=== PATIENT | male | born 1940 | race Caucasian/White ===

== ENCOUNTER → 2016-05-02 | Outpatient (CLI) | payer OTHER ==
[~2016-05-02] MED LIST: ASPI325T45 PO; CLR10 PO; DIPH-437 PO; FOLI1TAB7 PO; LEVO100T7 PO; OXYC-643 PO; POTA-74 PO; SIMV20TA2 PO
--- NOTE | 2016-05-02 11:28 | DIAGNOSTIC IMAGING REPORT ---
CHEST 2 VIEWS ROUTINE HISTORY: Follow-up PLEURAL EFFUSION COMPARISON: Chest 12/07/2015. FINDINGS: No pneumothorax. The heart is stable in size. Moderate left pleural effusion is slightly increased in size. Small right pleural fusion remains unchanged. Interstitial thickening has improved. No new focal lung consolidations. Bibasilar densities favor compressive atelectasis from the pleural fluid. IMPRESSION: 1. Slight increase in size in the moderate left pleural effusion. 2. No change in the small right pleural effusion. Electronically signed by: Michele Collazo M.D. 05/02/2016 11:26 AM Dictated Date/Time: 05/02/2016 11:25 AM
== END | disposition home or self-care (01) ==
LOC: C.RADBBURG 11:14
PROVIDERS: ATTEND Internal Medicine Critical Care Medicine
DX: J90 Pleural effusion, not elsewhere classified (principal)

== ENCOUNTER → 2016-07-03 | Outpatient (CLI) | payer OTHER ==
[~2016-07-03] MED LIST changes: +ATV/1 PO; +CHOL2000 PO; +CYAN500T13 PO; +LSX20 PO; +THM100 PO
--- NOTE | 2016-07-03 11:15 | DIAGNOSTIC IMAGING REPORT ---
CHEST 2 VIEWS ROUTINE HISTORY: PLEURAL EFFUSION COMPARISON: Chest 05/02/2016. FINDINGS: Moderate left and small right pleural effusions remain unchanged. No pneumothorax. The heart is normal in size. No evidence for pulmonary edema. Left basilar densities favor atelectasis from the pleural effusion. The right lung remains clear. IMPRESSION: No change in the moderate left and small right pleural effusions. Electronically signed by: Michele Collazo M.D. 07/03/2016 11:13 AM Dictated Date/Time: 07/03/2016 11:11 AM
== END | disposition home or self-care (01) ==
LOC: C.RADBBURG 11:00
PROVIDERS: ATTEND Physician Assistant
DX: J90 Pleural effusion, not elsewhere classified (principal)

== ENCOUNTER → 2016-09-23 | Outpatient (CLI) | payer OTHER ==
[~2016-09-23] MED LIST changes: -ATV/1 PO; -THM100 PO
--- NOTE | 2016-09-23 11:42 | DIAGNOSTIC IMAGING REPORT ---
CHEST 2 VIEWS ROUTINE HISTORY: 76 years Male PLEURAL EFFUSION COMPARISON: Chest radiograph 07/03/2016 TECHNIQUE: Frontal and lateral views of the chest FINDINGS: Cardiac silhouette is within normal limits. There is atherosclerosis of the aorta. No pneumothorax. There is persistent blunting of the right costophrenic angle suggesting trace pleural effusion. Moderate left pleural effusion with adjacent mild compressive atelectasis is redemonstrated. Degenerative changes involve the shoulders and spine. IMPRESSION: Stable appearance of the trace right and moderate left pleural effusions. The above report was generated using voice recognition software. It may contain grammatical, syntax or spelling errors. Electronically signed by: Karlo Plunkett M.D. 09/23/2016 11:41 AM Dictated Date/Time: 09/23/2016 11:39 AM
== END | disposition home or self-care (01) ==
LOC: C.RADBBURG 11:24
PROVIDERS: ATTEND Physician Assistant
DX: J90 Pleural effusion, not elsewhere classified (principal)

== ENCOUNTER → 2016-12-11 | Outpatient (CLI) | payer OTHER ==
[~2016-12-11] MED LIST changes: -CHOL2000 PO; -CYAN500T13 PO; -LSX20 PO
[2016-12-11 11:10] LABS: PATIENT HEIGHT 180.3 cm
[2016-12-11 12:27] LABS: URINE APPEARANCE CLEAR (CLEAR); URINE BILIRUBIN NEG (NEG); URINE COLOR YELLOW; URINE NITRITE NEG (NEG); URINE SPECIFIC GRAVITY 1.019 (1.000-1.030); UROBILINOGEN NEG (NEG)
[2016-12-11 12:28] LABS: MANUAL MICROSCOPIC REQUIRED? NO; REVIEW REQ? NO
[2016-12-11 12:34] LABS: HEMATOCRIT 35.6 % (42-52); MEAN CELL VOLUME 99.7 fL (80-100); MEAN CORPUSCULAR HEMOGLOBIN 33.3 pg (25-34); MEAN CORPUSCULAR HGB CONC 33.4 g/dl (32-36); MEAN PLATELET VOLUME 10.9 fL (7.4-10.4); PLATELET COUNT 278 K/uL (130-400); RED BLOOD COUNT 3.57 M/uL (4.7-6.1); WHITE BLOOD COUNT 6.35 K/uL (4.8-10.8)
[2016-12-11 12:41] LABS: BUN/CREATININE RATIO 6.6 (10-20); CALCIUM 8.2 mg/dl (8.5-10.1); CREATININE 2.3 mg/dl (0.60-1.40); PHOSPHORUS 3.2 mg/dl (2.5-4.9); POTASSIUM 3.6 mmol/L (3.5-5.1)
[2016-12-11 12:44] LABS: URINE PROTIEN/CREAT RATIO 3.8 (0-0.2)
[2016-12-11 12:53] LABS: C-REACTIVE PROTEIN 1.41 mg/dl (0-0.29); MAGNESIUM 2.3 mg/dl (1.8-2.4); PROSTATE SPECIFIC ANTIGEN 0.278 ng/ml (0.000-4.000); THYROID STIMULATING HORMONE 8.09 uIu/ml (0.300-4.500)
[2016-12-11 13:16] LABS: URINE TOTAL PROTEIN 186.6 mg/dl (0-11.9)
[2016-12-11 14:09] LABS: CREATININE 2.3 mg/dl (0.6-1.4)
[2016-12-11 16:20] LABS: HEPATITIS B AB NEG
[2016-12-12 16:50] LABS: ALBUMIN 2.3 G/DL (3.8-4.8); GAMMA GLOBULIN 0.8 G/DL (0.8-1.7); MONOCLONAL PROTEIN BAND 1 0.2 G/DL (NOT DETECTED); MONOCLONAL PROTEIN BAND 2 0.2 G/DL (NOT DETECTED); TOTAL PROTEIN 4.8 G/DL (6.2-8.3)
[2016-12-15 12:13] LABS: ALBUMIN % 66.32 %; ALPHA-2-GLOBULIN % 7.35 %; BETA GLOBULIN % 8.25 %; CREATININE UR 89 MG/DL (20-370); GAMMA GLOBULIN % 12.47 %
[2016-12-16 00:44] LABS: FREE KAPPA 56.1 MG/L (3.3-19.4); FREE KAPPA/LAMBDA RATIO 0.15 (0.26-1.65); FREE LAMBDA 364.1 MG/L (5.7-26.3)
== END | disposition home or self-care (01) ==
LOC: C.LABPBG 10:36
PROVIDERS: ATTEND Internal Medicine Nephrology
DX: M19.90 Unspecified osteoarthritis, unspecified site (principal); N17.9 Acute kidney failure, unspecified

== ENCOUNTER 2016-12-18 17:26 | Inpatient (IN) | payer OTHER ==
[~2016-12-18] VITALS: Ht 180.3 cm; Wt 77.4 kg
[2016-12-18 17:45] LABS: BASO % 0.5 %; BASO ABS # 0.03 K/uL (0-0.2); COMPLETE YES; EOS % 1.8 %; HEMATOCRIT 33.4 % (42-52); IG% 0.4 %; LYMPH % 14.6 %; MEAN CELL VOLUME 100.6 fL (80-100); MEAN CORPUSCULAR HEMOGLOBIN 32.5 pg (25-34); MEAN CORPUSCULAR HGB CONC 32.3 g/dl (32-36); MEAN PLATELET VOLUME 10.7 fL (7.4-10.4); NEUT % 72.7 %; PLATELET COUNT 240 K/uL (130-400); RED BLOOD COUNT 3.32 M/uL (4.7-6.1); WHITE BLOOD COUNT 5.49 K/uL (4.8-10.8)
[2016-12-18] MEDS ORDERED: MULTI-VITAMIN INFUSION INJ 10 ML, THIAMINE HCL INJ 100 MG, FoLIC ACID INJ 1 MG in SODIU... IV ONE ×3 (17:45→19:45)
[2016-12-18 17:54] LABS: INR 0.9 (0.9-1.1); PARTIAL THROMBOPLASTIN RATIO 1.1; PROTHROMBIN TIME (PATIENT) 9.5 SECONDS (9.0-12.0)
[2016-12-18 18:32] LABS: ALT/SGPT 18 U/L (12-78); AST/SGOT 38 U/L (15-37); BLOOD UREA NITROGEN 18 mg/dl (7-18); BUN/CREATININE RATIO 8.7 (10-20); CALCIUM 7.6 mg/dl (8.5-10.1); CARBON DIOXIDE 18 mmol/L (21-32); CHLORIDE 110 mmol/L (98-107); GLUCOSE 72 mg/dl (70-99); MAGNESIUM 2.7 mg/dl (1.8-2.4); POTASSIUM 3.6 mmol/L (3.5-5.1); SODIUM 138 mmol/L (136-145)
[2016-12-18 18:37] LABS: ALKALINE PHOSPHATASE 68 U/L (45-117)
[2016-12-18] MEDS ORDERED: CYAN500T13 PO (18:45)
[2016-12-18] MEDS ORDERED: CHOL2000 PO (18:45)
[2016-12-18] MEDS ORDERED: LSX20 PO (18:45)
--- NOTE | 2016-12-18 18:45 | DIAGNOSTIC IMAGING REPORT ---
HEAD WITHOUT CONTRAST (CT) CLINICAL HISTORY: 76 years-old Male presenting with Syncope, etoh. Awake now. TECHNIQUE: Multidetector CT imaging of the head was performed without the use of intravenous contrast. IV contrast: None. A dose lowering technique was used consistent with the principles of ALARA (as low as reasonably achievable). COMPARISON: 11/24/2015. CT DOSE (mGy.cm): The estimated cumulative dose is 948.[address] cervical spine. 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 Proportional ventricular and sulcal prominence, likely age-related parenchymal volume loss. Brain parenchyma normal in appearance with preserved akers-white differentiation. No mass effect or midline shift. No hemorrhage or acute territorial infarct. No extra-axial fluid collection. Paranasal sinuses and mastoid air cells clear. Calvarium intact. IMPRESSION: 1. No acute intracranial pathology. Electronically signed by: Sanju Hernandez M.D. 12/18/2016 6:44 PM Dictated Date/Time: 12/18/2016 6:41 PM
--- NOTE | 2016-12-18 18:50 | DIAGNOSTIC IMAGING REPORT ---
CERVICAL SPINE W/O CLINICAL HISTORY: 76 years-old Male presenting with fall, head injury, intoxicated. TECHNIQUE: Multidetector CT of the cervical spine was performed without the use of intravenous contrast. IV contrast: None. A dose lowering technique was used consistent with the principles of ALARA (as low as reasonably achievable). COMPARISON: 11/24/2015. CT DOSE (mGy.cm): The estimated cumulative dose is 948.78 mGy.cm. 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 Screening of normal cervical lordosis likely positional. No acute fracture or subluxation. Redemonstration of multilevel degenerative changes with large anterior osteophytes at C4-5 through C6-7. Disc osteophyte complex in combination with uncovertebral hypertrophy and facet arthropathy results in neural foraminal narrowing on the left at C3-4 and on the right at C6-7. Mild posterior bony spurring at the disc osteophyte complex at C3-4 more eccentrically affecting the right lateral recess. Otherwise no evidence of spinal canal stenosis. Paraspinal soft tissues within normal limits. Atherosclerosis noted. Large bilateral pleural effusions, increased in size bilaterally. IMPRESSION: 1. No acute osseous injury of the cervical spine. 2. Multilevel degenerative changes similar to prior exam. 3. Increased size of bilateral pleural effusions. Electronically signed by: Sanju Hernandez M.D. 12/18/2016 6:48 PM Dictated Date/Time: 12/18/2016 6:44 PM
--- NOTE | 2016-12-18 19:28 | DIAGNOSTIC IMAGING REPORT ---
CHEST ONE VIEW PORTABLE CLINICAL HISTORY: 76 years-old Male presenting with AMS. TECHNIQUE: Portable upright AP view of the chest was obtained. COMPARISON: 09/23/2016. FINDINGS: Atherosclerosis of aortic arch. Cardiac silhouette obscured by bibasilar opacities and chronic effusions. Stable moderate left pleural effusion and left basilar opacity. Increased small right pleural effusion and right basilar opacity. No pneumothorax. Osseous structures normal. Upper abdomen normal. IMPRESSION: 1. Increased bibasilar opacities with stable to increased pleural effusions. This could represent mild pulmonary edema and/or layering effusions. Electronically signed by: Sanju Hernandez M.D. 12/18/2016 7:26 PM Dictated Date/Time: 12/18/2016 7:25 PM
[2016-12-18 19:41] LABS: MANUAL MICROSCOPIC REQUIRED? NO; REVIEW REQ? NO; URINE APPEARANCE CLEAR (CLEAR); URINE BILIRUBIN NEG (NEG); URINE COLOR YELLOW; URINE NITRITE NEG (NEG); URINE SPECIFIC GRAVITY 1.014 (1.000-1.030); UROBILINOGEN NEG (NEG); ZZUR CULT IF INDIC CLEAN CATCH NO
[2016-12-18] MEDS ORDERED: LORAZEPAM 2 MG/ML 1 ML VIAL IV PRN ×2 (19:45)
[2016-12-18] MEDS ORDERED: ONDANSETRON INJ 2 MG/ML 2 ML VIAL IV PRN (20:00)
[2016-12-18] MEDS ORDERED: MoRPHine SULFATE 2 MG/ML CARP IV PRN (20:00)
[2016-12-18] MEDS ORDERED: ALUMINUM/MAGNESIUM/SIMETH (MAALOX MAX) 30 ML UDC PO PRN (20:00)
[2016-12-18] MEDS ORDERED: MAGNESIUM HYDROXIDE SUSP 30 ML UDC PO PRN (20:00)
[2016-12-18] MEDS ORDERED: POLYETHYLENE (MIRALAX) 17 GM PACK PO PRN (20:00)
[2016-12-18 20:05] LABS: BENZODIAZEPINE, URINE NEG (NEG); COCAINE,URINE NEG (NEG); PHENCYCLIDINE, URINE NEG (NEG)
--- NOTE | 2016-12-18 20:08 | History and Physical ---
History & Physical Date & Time of Service: Dec 18, 2016 at 19:54 Chief Complaint: Syncope/Dizzy Primary Care Physician: Steven Parry PA-C History of Present Illness Source: patient 76 y/o M Hx ETOH abuse, chronic hypoalbuminemia, anasarca, pleural effusions, hypothyroidism. Pt was having a few at a local bar when he became very dizzy and suddenly lost consciousness. He fell on to the floor and did not come around for approximately 5 minutes. There was no reported seizure activity or post ictal state. He does not recall any additional preceding symptoms such as CP, or palpitations. Initial labs reveal renal failure which was present on labs 6 days prior but not one year ago, hypoalbuminemia and an elevated troponin. Imaging confirms pleural effusions. Past Medical/Surgical History Medical Problems: (1) Rib fracture Status: Resolved Family History No pertinent family history Social History Chronic ETOH abuse Smoking Status: Former Smoker Drug Use: none Marital Status: Occupational Status: retired Multi-Drug Resistant Organisms History of MDRO: No Allergies Coded Allergies: No Known Allergies (Unverified , 12/18/16) Home Medications Scheduled Cholecalciferol (Vitamin D3), 2,000 INTER.UNIT PO DAILY Cyanocobalamin (Vitamin B12 500MCG), 1,000 MCG PO DAILY Folic Acid (Folvite), 1 MG PO DAILY Furosemide (Furosemide), 40 MG PO DAILY Levothyroxine Sodium (Levothyroxine Sodium), 100 MCG PO QAM Loratadine (Claritin), 10 MG PO QAM Potassium Chloride (Potassium Chloride Er), 10 MEQ PO QAM Simvastatin (Zocor), 20 MG PO QAM Review of Systems Constitutional: No fever, No chills, No sweats Eyes: No worsening of vision ENT: No hearing loss, No unusual epistaxis, No nasal symptoms Respiratory: No cough, No sputum, No wheezing Cardiovascular: No chest pain, No orthopnea, No PND Abdomen: No pain, No nausea, No vomiting Musculoskeletal: No joint pain Genitourinary - Male: No hematuria, No dysuria Neurologic: No memory loss, No paralysis, No weakness Psychiatric: No depression symptoms Endocrine: No fatigue Hematologic / Lymphatic: No abnormal bleeding/bruising Integumentary: No rash Allergic / Immunologic: No environmental allergies Physical Exam Vital Signs Date Time Temp Pulse Resp B/P (MAP) Pulse Ox O2 Delivery O2 Flow Rate FiO2 12/18/16 18:15 71 12/18/16 18:12 127/82 12/18/16 17:56 68 20 12/18/16 17:37 36.6 72 125/80 96 Room Air General Appearance: WD/WN, no apparent distress Head: normocephalic Eyes: normal inspection, PERRL, EOMI ENT: normal ENT inspection, pharynx normal Neck: supple, no JVD Respiratory/Chest: chest non-tender, lungs clear, no accessory muscle use, + decreased breath sounds Cardiovascular: regular rate, rhythm, no edema Abdomen/GI: normal bowel sounds, non tender, soft Back: normal inspection, no CVA tenderness, no muscle spasm, normal range of motion Extremities/Musculoskelatal: normal inspection, no calf tenderness, + pedal edema Neurologic/Psych: 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 nml as tested, no motor/sensory deficits, alert, oriented x 3 Skin: normal color, warm/dry, no rash Diagnostics Laboratory Results Results Past 24 Hours Test 12/18/16 17:30 12/18/16 17:47 12/18/16 18:00 12/18/16 19:47 Range/Units White Blood Count 5.49 4.8-10.8 K/uL Red Blood Count 3.32 4.7-6.1 M/uL Hemoglobin 10.8 14.0-18.0 g/dL Hematocrit 33.4 42-52 % Mean Corpuscular Volume 100.6 80-100 fL Mean Corpuscular Hemoglobin 32.5 25-34 pg Mean Corpuscular Hemoglobin Concent 32.3 32-36 g/dl Platelet Count 240 130-400 K/uL Mean Platelet Volume 10.7 7.4-10.4 fL Neutrophils (%) (Auto) 72.7 % Lymphocytes (%) (Auto) 14.6 % Monocytes (%) (Auto) 10.0 % Eosinophils (%) (Auto) 1.8 % Basophils (%) (Auto) 0.5 % Neutrophils # (Auto) 3.99 1.4-6.5 K/uL Lymphocytes # (Auto) 0.80 1.2-3.4 K/uL Monocytes # (Auto) 0.55 0.11-0.59 K/uL Eosinophils # (Auto) 0.10 0-0.5 K/uL Basophils # (Auto) 0.03 0-0.2 K/uL RDW Standard Deviation 52.4 36.4-46.3 fL RDW Coefficient of Variation 14.2 11.5-14.5 % Immature Granulocyte % (Auto) 0.4 % Immature Granulocyte # (Auto) 0.02 0.00-0.02 K/uL Prothrombin Time 9.5 9.0-12.0 SECONDS Prothromb Time International Ratio 0.9 0.9-1.1 Activated Partial Thromboplast Time 27.5 21.0-31.0 SECONDS Partial Thromboplastin Ratio 1.1 Sodium Level 138 136-145 mmol/L Potassium Level 3.6 3.5-5.1 mmol/L Chloride Level 110 98-107 mmol/L Carbon Dioxide Level 18 21-32 mmol/L Anion Gap 10.0 3-11 mmol/L Blood Urea Nitrogen 18 7-18 mg/dl Creatinine 2.10 0.60-1.40 mg/dl Est Creatinine Clear Calc Drug Dose 32.4 ml/min Estimated GFR () 34.6 Estimated GFR (Non- 29.9 BUN/Creatinine Ratio 8.7 10-20 Random Glucose 72 70-99 mg/dl Calcium Level 7.6 8.5-10.1 mg/dl Magnesium Level 2.7 1.8-2.4 mg/dl Total Bilirubin 0.2 0.2-1 mg/dl Direct Bilirubin < 0.1 0-0.2 mg/dl Aspartate Amino Transf (AST/SGOT) 38 15-37 U/L Alanine Aminotransferase (ALT/SGPT) 18 12-78 U/L Alkaline Phosphatase 68 45-117 U/L Troponin I 0.167 0-0.045 ng/ml Total Protein 5.4 6.4-8.2 gm/dl Albumin 1.8 3.4-5.0 gm/dl Ethyl Alcohol mg/dL 82.0 0-3 mg/dl Urine Color YELLOW Urine Appearance CLEAR CLEAR Urine pH 5.0 4.5-7.5 Urine Specific [place] 1.014 1.000-1.030 Urine Protein 2+ NEG Urine Glucose (UA) NEG NEG Urine Ketones NEG NEG Urine Occult Blood 2+ NEG Urine Nitrite NEG NEG Urine Bilirubin NEG NEG Urine Urobilinogen NEG NEG Urine Leukocyte Esterase NEG NEG Urine WBC (Auto) 1-5 0-5 /hpf Urine RBC (Auto) 0-4 0-4 /hpf Urine Hyaline Casts (Auto) 5-10 0-5 /lpf Urine Epithelial Cells (Auto) 10-20 0-5 /lpf Urine Bacteria (Auto) NEG NEG Diagnostic Radiology CXR: B/L pleural effusion - increased size compared to previous No acute findings on CT head or CT cervical spine EKG Sinus, first degree AV block - no acute ischemic changes Impression Assessment and Plan 76 y/o M Hx ETOH abuse, chronic hypoalbuminemia, anasarca, pleural effusions, hypothyroidism. Pt was having a few at a local bar when he became very dizzy and suddenly lost consciousness. He fell on to the floor and did not come around for approximately 5 minutes. There was no reported seizure activity or post ictal state. He does not recall any additional preceding symptoms such as CP, or palpitations. Initial labs reveal renal failure which was present on labs 6 days prior but not one year ago, hypoalbuminemia and an elevated troponin. Imaging confirms pleural effusions. 1) Syncope - pt will be monitored overnight and an echo will be ordered. He states that this has not happened previously although per or records he may have suffered a syncopal episode in 2015. The pt may therefore benefit from an ambulatory monitor on discharge. 2) Elevated troponin - possibly related to renal function or arrhythmia - will trend - echo ordered 3) ARF - acuity is not clear - he had a recent blood test revealing a creatinine of 2.3 and is undergoing a complete workup with nephrology - we will request an AM consult, provide IVF and recheck a BMP AM. 4) Pleural effusions - will request an US thoracentesis - during a previous admit, an attempt was made to drain his effusions with IV albumin and Lasix which did not prove successful. He is currently breathing comfortably. He takes daily Lasix which can be continued provided his renal function is stable on AM labs. 5) Hypothyroidism - check TSH - cont Synthroid 6) ETOH abuse - Ativan PRN, fall precautions, thiamine/folic daily. Pt is not interested in alcohol cessation. Full code - SCDs total time for this admit including review of labs, meds, imaging - discussion with pt, family and ER attending - 40 min Level of Care Telemetry Resuscitation Status FULL RESUSCITATION VTE Prophylaxis VTE Risk Assessment Done? Y/N: Yes Risk Level: Moderate Given or contraindicated: SCD's
[2016-12-18 22:12] VITALS: BP 133/74; PULSE 84; TEMP 36.4; O2SAT 91; Ht 180.3 cm; Wt 77.4 kg
[2016-12-18 23:21] VITALS: BP 129/81; PULSE 81; TEMP 36.9; O2SAT 95
[2016-12-19] MEDS ORDERED: INFLUENZA ADMINISTRATION CHARGE ONE (00:15)
[2016-12-19] MEDS ORDERED: PNEUMOCOCCAL ADMINISTRATION CHARGE ONE (00:15)
[2016-12-19] MEDS ORDERED: INFLUENZA VACCINE HIGH DOSE 65+ 0.5 ML SYR IM. ONE (00:15)
[2016-12-19] MEDS ORDERED: PNEUMOCOCCAL POLYSACCHARIDES 25 MCG/0.5 ML VIAL/SYR IM. ONE (00:15)
[2016-12-19 03:12] VITALS: BP 138/77; PULSE 75; TEMP 36.7; O2SAT 96
[2016-12-19 04:59] LABS: HEMATOCRIT 35.5 % (42-52); MEAN PLATELET VOLUME 10.1 fL (7.4-10.4); PLATELET COUNT 227 K/uL (130-400); RED BLOOD COUNT 3.55 M/uL (4.7-6.1); WHITE BLOOD COUNT 6.01 K/uL (4.8-10.8)
[2016-12-19] MEDS: D5NSS + 20MEQ KCL 1,000 ML IV SCH ×2 (05:00→15:22)
[2016-12-19 05:17] LABS: BUN/CREATININE RATIO 8.7 (10-20); CALCIUM 7.7 mg/dl (8.5-10.1); CREATININE 2.1 mg/dl (0.60-1.40); MAGNESIUM 2.4 mg/dl (1.8-2.4); POTASSIUM 3.6 mmol/L (3.5-5.1)
[2016-12-19] MEDS: LEVOTHYROXINE 100 MCG TAB PO SCH (05:32)
[2016-12-19] MEDS ORDERED: PERFLUTREN LIPID MICROSPHERE (DEFINITY) IV ONE (07:20)
[2016-12-19] MEDS: BOOST PLUS VANILLA PO SCH ×4 (07:30→11:30)
[2016-12-19] MEDS: SIMVASTATIN 20 MG TAB PO SCH (07:59)
[2016-12-19] MEDS: CYANOCOBALAMIN 500 MCG TAB (VIT B-12) PO SCH (07:59)
[2016-12-19 08:00] VITALS: BP 117/70; PULSE 87; TEMP 36.8; O2SAT 91
[2016-12-19] MEDS ORDERED: POTASSIUM CHLORIDE 10 MEQ TABCR PO SCH (09:00)
[2016-12-19] MEDS ORDERED: MULTI-VITAMIN INFUSION INJ 10 ML, THIAMINE HCL INJ 100 MG, FoLIC ACID INJ 1 MG in SODIU... IV SCH (09:00)
--- NOTE | 2016-12-19 09:32 | DIAGNOSTIC IMAGING REPORT ---
ABDOMEN AND PELVIS CT WITHOUT CONTRAST CT DOSE: 480.63 mGy.cm HISTORY: MARY, paraproteinemia, microscopic hematuria TECHNIQUE: Multiaxial CT images of the abdomen and pelvis were performed without contrast. A dose lowering technique was utilized adhering to the principles of ALARA. COMPARISON STUDY: Abdomen and pelvis CT 11/24/2015. FINDINGS: Moderate left pleural effusion which is not significantly changed. Increase in size in the small right pleural effusion. Consolidation within the base of the left lower lobe favors compressive atelectasis. This is also unchanged. No pneumoperitoneum. No pneumatosis. Fusion of the symphysis pubis with large left anterior bony exostosis, unchanged. This may be due to old posttraumatic changes. Partial fusion of the bilateral sacroiliac joints. Old, healed right-sided rib fractures. Moderate body wall edema. Mild motion artifact within the abdomen. This results in suboptimal evaluation of the solid abdominal viscera. However, the unenhanced liver, gallbladder, pancreas, spleen, and adrenal glands are unremarkable. No renal or ureteral stones. No hydronephrosis. Normal bladder. No retroperitoneal lymphadenopathy. Trace pelvic free fluid. Tiny fat-containing right inguinal hernia. Suboptimal evaluation for bowel pathology due to the lack of intravenous and oral contrast. However, there is no definite bowel wall thickening or obstruction. Colonic diverticulosis. Normal appendix. IMPRESSION: 1. No renal or ureteral stones. No hydronephrosis. 2. No definite bowel wall thickening or obstruction. 3. Colonic diverticulosis. 4. Moderate body wall edema. 5. No significant change in the moderate left pleural effusion. The small right pleural effusion has slightly increased in size. 6. Suboptimal evaluation due to motion artifact. Electronically signed by: Michele Collazo M.D. 12/19/2016 9:31 AM Dictated Date/Time: 12/19/2016 9:23 AM
[2016-12-19] MEDS ORDERED: FUROSEMIDE INJ 60 MG in SYRINGE 0 ML IV ONE (10:00)
--- NOTE | 2016-12-19 10:41 | ECHOCARDIOGRAM REPORT ---
*NOTICE TO RECEIVING [employer] This information is strictly Confidential and protected under [place] law. [place] law prohibits you from making any further disclosure of this information unless further disclosure is expressly permitted by the written consent of the person to whom it pertains or is authorized by law. A general authorization for the release of medical or other information is not sufficient for this purpose. Hospital accepts no responsibility if the information is made available to any other person, INCLUDING THE PATIENT. Interpretation Summary * Name: AB BARBA Study Date: 12/19/2016 06:38 AM BP: 138/77 mmHg * Patient Location: C.2T\S\E216\S\1 HR: 75 * : 1940 (M/d/yyyy) Gender: Male Height: 71 in * Age: 76 yrs Ethnicity: [place] Weight: 186 lb * Ordering Physician: Wayne Cochran * Referring Physician: Self, Referred * Performed By: Kassandra Knight RDCS * * Reason For Study: Syncope * BSA: 2.0 m2 * -- Conclusions -- * There is borderline concentric left ventricular hypertrophy. * Left ventricular systolic function is normal. * Diastolic function is normal * Mild to moderate valvular aortic stenosis. * Compared to study performed on 11/25/2015, there is no significant change. Aortic valve gradients are similar. Procedure Details * A complete two-dimensional transthoracic echocardiogram was performed (2D, M-mode, Doppler and color flow Doppler). * A contrast injection of Definity was performed to improve assessment of LV function. * Contrast was injected into an intravenous site in the left arm. * One vial of Definity ultrasound contrast was diluted in normal saline to a total volume of 10 ml. A total of '2' ml of solution was administered during imaging. * Lot # [id number] of Definity utilized for procedure. * Expiration date DEC 24. * The attending nurse who injected the contrast agent was Nadia Alicea RN. Left Ventricle * The left ventricle is normal in size. * There is borderline concentric left ventricular hypertrophy. * Ejection Fraction = >70 %. * Left ventricular systolic function is normal. * Diastolic function is normal Right Ventricle * The right ventricle is normal in size and function. * The right ventricular systolic function is normal as assessed by tricuspid annular plane systolic excursion (TAPSE) (normal >1.5 cm). Atria * The left atrial size is normal. * Right atrial size is normal. Mitral Valve * The mitral valve is grossly normal. * Significant mitral regurgitation is absent. Tricuspid Valve * The tricuspid valve is not well visualized, but is grossly normal. * Significant tricuspid regurgitation is absent. Aortic Valve * The aortic valve is normal in structure and function. * The aortic valve is trileaflet. * Mild to moderate valvular aortic stenosis. * There is no significant aortic regurgitation. Great Vessels * The aortic root is normal size. Pericardium/Pleural * There is no pericardial effusion. MMode 2D Measurements and Calculations IVSd 1.1 cm LVIDd 3.8 cm LVIDs 2.3 cm LVPWd 1.1 cm IVS/LVPW 0.99 FS 39.7 % EDV(Teich) 62.7 ml ESV(Teich) 18.2 ml EF(Teich) 71.0 % EDV(cubed) 55.7 ml ESV(cubed) 12.2 ml EF(cubed) 78.1 % LV mass(C)d 134.5 grams LV mass(C)dI 65.8 grams/m\S\2 SV(Teich) 44.5 ml SI(Teich) 21.8 ml/m\S\2 SV(cubed) 43.5 ml SI(cubed) 21.3 ml/m\S\2 Ao root diam 3.2 cm Ao root area 8.2 cm\S\2 ACS 1.0 cm LA dimension 3.0 cm asc Aorta Diam 3.4 cm LA/Ao 0.93 LVOT diam 1.9 cm LVOT area 2.7 cm\S\2 LVAd ap4 29.6 cm\S\2 LVLd ap4 7.9 cm EDV(MOD-sp4) 93.4 ml EDV(sp4-el) 94.7 ml LVAs ap4 14.5 cm\S\2 LVLs ap4 6.8 cm ESV(MOD-sp4) 26.0 ml ESV(sp4-el) 26.5 ml EF(MOD-sp4) 72.2 % EF(sp4-el) 72.1 % LVAd ap2 27.4 cm\S\2 LVLd ap2 8.3 cm EDV(MOD-sp2) 73.7 ml EDV(sp2-el) 76.6 ml LVAs ap2 12.6 cm\S\2 LVLs ap2 6.5 cm ESV(MOD-sp2) 21.4 ml ESV(sp2-el) 21.0 ml EF(MOD-sp2) 71.0 % EF(sp2-el) 72.6 % LVLd %diff 5.6 % EDV(MOD-bp) 84.8 ml LVLs %diff -4.95 % ESV(MOD-bp) 23.7 ml EF(MOD-bp) 72.1 % SV(MOD-sp4) 67.4 ml SI(MOD-sp4) 33.0 ml/m\S\2 SV(MOD-sp2) 52.3 ml SI(MOD-sp2) 25.6 ml/m\S\2 SV(MOD-bp) 61.1 ml SI(MOD-bp) 29.9 ml/m\S\2 SV(sp4-el) 68.3 ml SI(sp4-el) 33.4 ml/m\S\2 SV(sp2-el) 55.6 ml SI(sp2-el) 27.2 ml/m\S\2 Doppler Measurements and Calculations MV E max kirstin 102.3 cm/sec MV A max kirstin 60.1 cm/sec MV E/A 1.7 MV dec time 0.22 sec Ao V2 max 218.6 cm/sec Ao max PG 19.1 mmHg Ao max PG (full) 16.5 mmHg Ao V2 mean 156.9 cm/sec Ao mean PG 11.0 mmHg Ao V2 VTI 43.4 cm LITO(V,A) 1.0 cm\S\2 LITO(V,D) 1.0 cm\S\2 AI max kirstin 408.7 cm/sec AI max PG 66.8 mmHg AI dec slope 179.7 cm/sec\S\2 AI P1/2t 666.0 msec LV V1 max PG 2.7 mmHg LV V1 max 81.5 cm/sec SV(Ao) 355.7 ml SI(Ao) 173.9 ml/m\S\2 PA V2 max 84.2 cm/sec PA max PG 2.8 mmHg PA acc slope 448.8 cm/sec\S\2 PA acc time 0.11 sec TR max kirstin 209.3 cm/sec PA pr(Accel) 29.9 mmHg
[2016-12-19 11:39] VITALS: BP 124/77; PULSE 84; TEMP 37.1; O2SAT 94
[2016-12-19] MEDS ORDERED: BOOST PLUS VANILLA PO SCH ×2 (13:00)
--- NOTE | 2016-12-19 14:04 | Procedure Note ---
Procedure Note Date of Service Dec 19, 2016. Procedure Note Procedures:Left sided Thoracentesis Consent: obtained via the patient and placed into the chart Pre-Procedural Dx: Left pleural effusion Post-Procedural Dx: Left pleural effusion Analgesia: 8cc of 1% Liquid Lidocaine Procedure: The patient was placed in an upright position and thoracic US was used to select a spot for the procedure. A spot along the posterior axillary line was marked in the 7th intercostal space. The patient was then draped and prepped in a sterile fashion. A modified Seldinger technique was then used for catheter placement. Flowing this approximately 1500cc of straw colored pleural fluid was removed. The patient was then cleaned and placed at a 60 degree angle in the bed were the US was used to evaluate for possible pneumothorax. The US showed good lung sliding and starry night sign. EBL: None Complications: None
--- NOTE | 2016-12-19 14:05 | Pulmonary Consultation ---
History General Date of Service: Dec 19, 2016. Stated Complaint: Afr, Syncope And Collapse HPI The patient is a 76 year old male who presents to [facility] with complaints of Afr, Syncope And Collapse. The patient's primary care provider is Steven Parry PA-C. Mr. Sullivan is a 76-year-old male with past medical history of alcohol abuse, hypothyroidism, chronic hypoalbuminemia with recurrent pleural effusions and anasarca was brought in to the ER on 12/18/2016 after a witnessed episode of syncope and fall at a local bar. Denies any fever, chills, cough, shortness of breath, chest pain or palpitations prior to event. No seizure-like activity was noted. He has noticed increased dyspnea on exertion. Vital signs in the ER showed a temperature 36.6, pulse of 72, blood pressure 125 /80 saturating 96% on room air. Laboratory data showed a white blood cell count of 5, hemoglobin of 10.8, hematocrit of 32.4, MCV of 106, platelet count of 240. His chemistry was significant for chloride of 110, CO2 of 18, creatinine of 2.1 (baseline creatinine 1), calcium 7.6, albumin 1.8 and magnesium 2.7. His LFTs within normal limits except for mildly elevated AST of 38. Troponins were elevated at 0.167 and increased to 0.192 and later to 0.318. His TSH is elevated at 9.190. Urine toxicology was negative. Alcohol level was 82. CT head was negative for any acute findings. Chest x-ray showed bilateral pleural effusions greater on the left than on the right. TTE from this morning 12/19/2016 * There is borderline concentric left ventricular hypertrophy. * Left ventricular systolic function is normal. Ejection Fraction = >70 %. * Diastolic function is normal * Mild to moderate valvular aortic stenosis. * Compared to study performed on 11/25/2015, there is no significant change. Aortic valve gradients are similar On review of imaging it appears that this left pleural effusion is chronic and is seen on images dating back to December 2013. It appears that this pleural fluid was tapped by Dr. Melgar in 11/28/2015 at that time he was able to remove about 700 mL of pleural fluid. Procedure had to be aborted secondary to coughing. He was started at that time that his wound was likely trapped versus entrapped. Pleural fluid was positive for methicillin sensitive staph aureus. He was negative for AFB. He follows with Dr. Melgar in the pulmonary clinic. Respiratory medications include Ventolin HFA 1 puff Q4 hours as needed. He was admitted for syncope, pleural effusions, to rule out ACS and acute renal failure. Historian: patient, other (EMR) Onset: just prior to arrival Review of Systems Constitutional: reports: no symptoms Eyes: reports: no symptoms ENT: reports: no symptoms Cardiovascular: reports: no symptoms Respiratory: reports: no symptoms Gastrointestinal: reports: no symptoms Genitourinary - Male: reports: no symptoms Musculoskeletal: reports: no symptoms Integumentary: reports: no symptoms Neurologic: reports: no symptoms Psychiatric: reports: no symptoms Endocrine: no symptoms Hematologic / Lymphatic: no symptoms Allergic / Immunologic: no symptoms All Other Symptoms All Other Systems: Reviewed and Negative Past Medical History Past Medical History: 1)1st degree AV block 2)rib fractures at the 9th and 10th (right) 02/15/2015hickamn 3)left pleural effusion, which per history from the patient is long-standing 4)ETOH abuse 5)Multiple falls 6) Arthritis 7)Benign prostatic hyperplasia with urinary obstruction 8)Gross hematuria 9)Hypercholesterolemia 10)Hypothyroid 11)Tobacco dependence Past Surgical History: Past Surgical History: 1)Cystourethroscopy Family History No pertinent family history His family history of lung cancer, breast cancer and skin cancer Social History He is a current every day smoker and alcohol user. Hx Tobacco Use In Past Year?: No Smoking Status: Former Smoker Marital status: Occupational Status: retired History of MDRO History of MDRO: No Allergies Coded Allergies: No Known Allergies (Unverified , 12/18/16) Current Medications Reported Home Medications Medications Dose Route/Sig Max Daily Dose Days Date Category Vitamin B12 500MCG (Cyanocobalamin) 500 Mcg Tab 1,000 Mcg PO DAILY 12/18/16 Reported Vitamin D3 (Cholecalciferol) 2,000 Unit Cap 2,000 Inter.unit PO DAILY 12/18/16 Reported Furosemide 20 Mg Tab 40 Mg PO DAILY 12/18/16 Reported Potassium Chloride Er (Potassium Chloride) 10 Meq Tab 10 Meq PO QAM 11/24/15 Reported Claritin (Loratadine) 10 Mg Tab 10 Mg PO QAM 11/24/15 Reported Zocor (Simvastatin) 20 Mg Tab 20 Mg PO QAM 11/24/15 Reported Folvite (Folic Acid) 1 Mg Tab 1 Mg PO DAILY 02/15/15 Reported Levothyroxine Sodium 100 Mcg Tab 100 Mcg PO QAM 02/15/15 Reported Physical Physical Exam Vital Signs: Date Time Temp Pulse Resp B/P (MAP) Pulse Ox O2 Delivery O2 Flow Rate FiO2 12/19/16 08:02 Room Air 12/19/16 08:00 36.8 87 20 117/70 (86) 91 Room Air 12/19/16 04:00 Room Air 12/19/16 03:12 36.7 75 20 138/77 (97) 96 Room Air 12/19/16 00:01 Room Air 12/18/16 23:21 36.9 81 18 129/81 (97) 95 Room Air 12/18/16 22:12 36.4 84 16 133/74 91 Room Air 12/18/16 20:33 81 18 158/90 94 Room Air 12/18/16 19:49 77 149/101 94 Room Air 12/18/16 18:15 71 12/18/16 18:12 127/82 12/18/16 17:56 68 20 12/18/16 17:37 36.6 72 125/80 96 Room Air Pedal edema General Appearance: WELL-APPEARING Head: NORMOCEPHALIC, ATRAUMATIC Eyes: PERRLA, NO DISCHARGE, EOMI, SCLERAE NORMAL, CONJUNCTIVAE NORMAL ENT: NORMAL EAR EXAM, NORMAL NASAL EXAM, NORMAL MOUTH EXAM, NORMAL THROAT EXAM Neck: NORMAL RANGE OF MOTION, NO TENDERNESS, TRACHEA MIDLINE, NO STRIDOR Respiratory: other (decreased breath sounds left lower lobe with dullness to percussion) Cardiovasular: REGULAR RATE/RHYTHM, NORMAL S1S2, NO M/G/R, NO MURMUR, NO GALLOP , NO RUB, NO JVD Abdomen: NON TENDER, NORMAL BOWEL SOUNDS, NO REBOUND, NO MASSES, NO GUARDING, NO ORGANOMEGALY, NORMAL RECTAL EXAM, NO HEMORRHOIDS, NO HERNIA Genitourinary - Male: EXTERNAL GENITALIA NORMAL Back: NORMAL INSPECTION, NO MIDLINE TENDERNESS, NO CVA TENDERNESS, NO PARAVERTEBRAL TTP Upper Extremities: NO EDEMA Lower Extremities: Edema Edema: Bilateral LE (2+) Pulses: carotid (R) (1+), carotid (L) (1+), posterior tibial (R), posterior tibial (L) (1+) Neuro: ALERT, ORIENTED x 3, NORMAL MOTOR EXAM, NORMAL SENSATION Reflexes: biceps (R) (2+), bicpes (L) Babinski Testing: right (downgoing), left (downgoing) Psychiatric: NORMAL AFFECT, NO SUICIDAL IDEATION, CONTRACTS FOR SAFETY Diagnostics Labs Results Past 24 Hours Test 12/18/16 17:30 12/18/16 17:47 12/18/16 18:00 12/18/16 23:10 Range/Units White Blood Count 5.49 4.8-10.8 K/uL Red Blood Count 3.32 4.7-6.1 M/uL Hemoglobin 10.8 14.0-18.0 g/dL Hematocrit 33.4 42-52 % Mean Corpuscular Volume 100.6 80-100 fL Mean Corpuscular Hemoglobin 32.5 25-34 pg Mean Corpuscular Hemoglobin Concent 32.3 32-36 g/dl Platelet Count 240 130-400 K/uL Mean Platelet Volume 10.7 7.4-10.4 fL Neutrophils (%) (Auto) 72.7 % Lymphocytes (%) (Auto) 14.6 % Monocytes (%) (Auto) 10.0 % Eosinophils (%) (Auto) 1.8 % Basophils (%) (Auto) 0.5 % Neutrophils # (Auto) 3.99 1.4-6.5 K/uL Lymphocytes # (Auto) 0.80 1.2-3.4 K/uL Monocytes # (Auto) 0.55 0.11-0.59 K/uL Eosinophils # (Auto) 0.10 0-0.5 K/uL Basophils # (Auto) 0.03 0-0.2 K/uL RDW Standard Deviation 52.4 36.4-46.3 fL RDW Coefficient of Variation 14.2 11.5-14.5 % Immature Granulocyte % (Auto) 0.4 % Immature Granulocyte # (Auto) 0.02 0.00-0.02 K/uL Prothrombin Time 9.5 9.0-12.0 SECONDS Prothromb Time International Ratio 0.9 0.9-1.1 Activated Partial Thromboplast Time 27.5 21.0-31.0 SECONDS Partial Thromboplastin Ratio 1.1 Sodium Level 138 136-145 mmol/L Potassium Level 3.6 3.5-5.1 mmol/L Chloride Level 110 98-107 mmol/L Carbon Dioxide Level 18 21-32 mmol/L Anion Gap 10.0 3-11 mmol/L Blood Urea Nitrogen 18 7-18 mg/dl Creatinine 2.10 0.60-1.40 mg/dl Est Creatinine Clear Calc Drug Dose 32.4 ml/min Estimated GFR () 34.6 Estimated GFR (Non- 29.9 BUN/Creatinine Ratio 8.7 10-20 Random Glucose 72 70-99 mg/dl Calcium Level 7.6 8.5-10.1 mg/dl Magnesium Level 2.7 1.8-2.4 mg/dl Total Bilirubin 0.2 0.2-1 mg/dl Direct Bilirubin < 0.1 0-0.2 mg/dl Aspartate Amino Transf (AST/SGOT) 38 15-37 U/L Alanine Aminotransferase (ALT/SGPT) 18 12-78 U/L Alkaline Phosphatase 68 45-117 U/L Troponin I 0.167 0.192 0-0.045 ng/ml Total Protein 5.4 6.4-8.2 gm/dl Albumin 1.8 3.4-5.0 gm/dl Thyroid Stimulating Hormone (TSH) 9.190 0.300-4.500 uIu/ml Ethyl Alcohol mg/dL 82.0 0-3 mg/dl Urine Color YELLOW Urine Appearance CLEAR CLEAR Urine pH 5.0 4.5-7.5 Urine Specific [place] 1.014 1.000-1.030 Urine Protein 2+ NEG Urine Glucose (UA) NEG NEG Urine Ketones NEG NEG Urine Occult Blood 2+ NEG Urine Nitrite NEG NEG Urine Bilirubin NEG NEG Urine Urobilinogen NEG NEG Urine Leukocyte Esterase NEG NEG Urine WBC (Auto) 1-5 0-5 /hpf Urine RBC (Auto) 0-4 0-4 /hpf Urine Hyaline Casts (Auto) 5-10 0-5 /lpf Urine Epithelial Cells (Auto) 10-20 0-5 /lpf Urine Bacteria (Auto) NEG NEG Urine Opiates Screen NEG NEG Urine Methadone, Qualitative NEG NEG Urine Barbiturates NEG NEG Urine Phencyclidine (PCP) Level NEG NEG Ur Amphetamine/Methamphetamine NEG NEG MDMA (Ecstasy) Screen NEG NEG Urine Benzodiazepines Screen NEG NEG Urine Cocaine Metabolite NEG NEG Urine Marijuana (THC) NEG NEG Test 12/19/16 04:52 12/19/16 10:04 Range/Units White Blood Count 6.01 4.8-10.8 K/uL Red Blood Count 3.55 4.7-6.1 M/uL Hemoglobin 11.7 14.0-18.0 g/dL Hematocrit 35.5 42-52 % Mean Corpuscular Volume 100.0 80-100 fL Mean Corpuscular Hemoglobin 33.0 25-34 pg Mean Corpuscular Hemoglobin Concent 33.0 32-36 g/dl RDW Standard Deviation 51.8 36.4-46.3 fL RDW Coefficient of Variation 14.1 11.5-14.5 % Platelet Count 227 130-400 K/uL Mean Platelet Volume 10.1 7.4-10.4 fL Sodium Level 140 136-145 mmol/L Potassium Level 3.6 3.5-5.1 mmol/L Chloride Level 109 98-107 mmol/L Carbon Dioxide Level 23 21-32 mmol/L Anion Gap 8.0 3-11 mmol/L Blood Urea Nitrogen 18 7-18 mg/dl Creatinine 2.10 0.60-1.40 mg/dl Est Creatinine Clear Calc Drug Dose 32.4 ml/min Estimated GFR () 34.6 Estimated GFR (Non- 29.9 BUN/Creatinine Ratio 8.7 10-20 Random Glucose 77 70-99 mg/dl Calcium Level 7.7 8.5-10.1 mg/dl Magnesium Level 2.4 1.8-2.4 mg/dl Troponin I 0.318 0-0.045 ng/ml Free Thyroxine 1.04 0.80-1.60 ng/dl Diagnostic Radiology ABDOMEN AND PELVIS CT WITHOUT CONTRAST 12/19/2016 CT DOSE: 480.63 mGy.cm HISTORY: MARY, paraproteinemia, microscopic hematuria TECHNIQUE: Multiaxial CT images of the abdomen and pelvis were performed without contrast. A dose lowering technique was utilized adhering to the principles of ALARA. COMPARISON STUDY: Abdomen and pelvis CT 11/24/2015. FINDINGS: Moderate left pleural effusion which is not significantly changed. Increase in size in the small right pleural effusion. Consolidation within the base of the left lower lobe favors compressive atelectasis. This is also unchanged. No pneumoperitoneum. No pneumatosis. Fusion of the symphysis pubis with large left anterior bony exostosis, unchanged. This may be due to old posttraumatic changes. Partial fusion of the bilateral sacroiliac joints. Old, healed right-sided rib fractures. Moderate body wall edema. Mild motion artifact within the abdomen. This results in suboptimal evaluation of the solid abdominal viscera. However, the unenhanced liver, gallbladder, pancreas, spleen, and adrenal glands are unremarkable. No renal or ureteral stones. No hydronephrosis. Normal bladder. No retroperitoneal lymphadenopathy. Trace pelvic free fluid. Tiny fat-containing right inguinal hernia. Suboptimal evaluation for bowel pathology due to the lack of intravenous and oral contrast. However, there is no definite bowel wall thickening or obstruction. Colonic diverticulosis. Normal appendix. IMPRESSION: 1. No renal or ureteral stones. No hydronephrosis. 2. No definite bowel wall thickening or obstruction. 3. Colonic diverticulosis. 4. Moderate body wall edema. 5. No significant change in the moderate left pleural effusion. The small right pleural effusion has slightly increased in size. 6. Suboptimal evaluation due to motion artifact. CERVICAL SPINE W/O 12/18/2016 CLINICAL HISTORY: 76 years-old Male presenting with fall, head injury, intoxicated. TECHNIQUE: Multidetector CT of the cervical spine was performed without the use of intravenous contrast. IV contrast: None. A dose lowering technique was used consistent with the principles of ALARA (as low as reasonably achievable). COMPARISON: 11/24/2015. CT DOSE (mGy.cm): The estimated cumulative dose is 948.78 mGy.cm. FINDINGS: Consult[employer] topogram: Unremarkable. Screening of normal cervical lordosis likely positional. No acute fracture or subluxation. Redemonstration of multilevel degenerative changes with large anterior osteophytes at C4-5 through C6-7. Disc osteophyte complex in combination with uncovertebral hypertrophy and facet arthropathy results in neural foraminal narrowing on the left at C3-4 and on the right at C6-7. Mild posterior bony spurring at the disc osteophyte complex at C3-4 more eccentrically affecting the right lateral recess. Otherwise no evidence of spinal canal stenosis. Paraspinal soft tissues within normal limits. Atherosclerosis noted. Large bilateral pleural effusions, increased in size bilaterally. IMPRESSION: 1. No acute osseous injury of the cervical spine. 2. Multilevel degenerative changes similar to prior exam. 3. Increased size of bilateral pleural effusions. CHEST ONE VIEW PORTABLE 12/18/2016 CLINICAL HISTORY: 76 years-old Male presenting with AMS. TECHNIQUE: Portable upright AP view of the chest was obtained. COMPARISON: 09/23/2016. FINDINGS: Atherosclerosis of aortic arch. Cardiac silhouette obscured by bibasilar opacities and chronic effusions. Stable moderate left pleural effusion and left basilar opacity. Increased small right pleural effusion and right basilar opacity. No pneumothorax. Osseous structures normal. Upper abdomen normal. IMPRESSION: 1. Increased bibasilar opacities with stable to increased pleural effusions. This could represent mild pulmonary edema and/or layering effusions. HEAD WITHOUT CONTRAST (CT) 12/18/2016 CLINICAL HISTORY: 76 years-old Male presenting with Syncope, etoh. Awake now. TECHNIQUE: Multidetector CT imaging of the head was performed without the use of intravenous contrast. IV contrast: None. A dose lowering technique was used consistent with the principles of ALARA (as low as reasonably achievable). COMPARISON: 11/24/2015. CT DOSE (mGy.cm): The estimated cumulative dose is 948.[address] cervical spine. FINDINGS: Consult[employer] Solution [employer] topogram: Unremarkable. Proportional ventricular and sulcal prominence, likely age-related parenchymal volume loss. Brain parenchyma normal in appearance with preserved akers-white differentiation. No mass effect or midline shift. No hemorrhage or acute territorial infarct. No extra-axial fluid collection. Paranasal sinuses and mastoid air cells clear. Calvarium intact. IMPRESSION: 1. No acute intracranial pathology. 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 Review of previous imaging and labs his history of diastolic dysfunction with elevated BNP as well as hypoalbuminemia. A review of imaging from 2013 he had a left pleural effusion. This was tapped by Dr. Melgar last year and positive for MSSA at that time. Now he presents with syncope and fall in the setting of elevated creatinine and troponins. From a respiratory standpoint, patient is currently asymptomatic. Due to the chronicity of this pleural effusion I do not feel that his lung will reexpand. It is most likely entrapped versus trapped. I will obtain consent for left pleural effusion for diagnostic and therapeutic thoracentesis, which has been infectious in the past. I would also like to obtain bilateral lower extremity Dopplers to rule out DVT. The patient becomes hypoxic recommend supplemental oxygen to maintain SaO2 of 92 %. I appreciate the consult.
--- NOTE | 2016-12-19 14:43 | DIAGNOSTIC IMAGING REPORT ---
CHEST ONE VIEW PORTABLE HISTORY: S/P Thoracentesis COMPARISON: Chest 12/18/2016. FINDINGS: Decrease in size in the small to moderate left pleural effusion. The small right pleural effusion persists. Bibasilar densities suggestive of atelectasis are again noted. No definite pneumothorax. The heart is normal in size. IMPRESSION: 1. No pneumothorax. 2. Decrease in size in the small to moderate left pleural effusion. The small right pleural effusion persists. Electronically signed by: Michele Collazo M.D. 12/19/2016 2:41 PM Dictated Date/Time: 12/19/2016 2:39 PM
[2016-12-19 14:44] LABS: PLEURAL FLUID TOTAL PROTEIN 1.1 g/dl
[2016-12-19 15:21] LABS: PLEURAL FLUID APPEARANCE CLEAR; PLEURAL FLUID COLOR YELLOW; PLEURAL FLUID MONONUC RELAT 98.1 %; PLEURAL FLUID POLYNUC 1.9 %; PLEURAL FLUID SOURCE LEFT LUNG; PLEURAL FLUID WBC (A) 325 /uL
--- NOTE | 2016-12-19 15:22 | Nephrology Consultation ---
Nephrology Consultation Date & Providers Date of Consultation: Dec 19, 2016. Primary Care Provider: Steven Parry PA-C Referring Provider: Reason for Consultation Acute renal insufficiency History of Present Illness Mr. Steven Sullivan is a 76-year-old male who was seen and evaluated this morning regarding acute kidney injury and proteinuria. The patient was admitted to [facility] yesterday following a syncopal event. Steven had a witnessed loss of consciousness while sitting at a bar. He fell to the floor and was reportedly unresponsive for several minutes. There was no witnessed tonic-clonic activity. No chest pain or palpitations were reported. No similar events have occurred in the past. Normotensive on presentation. Steven recovered well following the event. EKG on presentation documenting normal sinus rhythm with a first degree AV block. Compared to EKG obtained last month, a nonspecific T wave abnormality was noted in the anterolateral leads. CT of the head was negative. CXR documented bilateral pleural effusions without significant pulmonary vascular congestion. TTE showed normal LV size with hyperdynamic function with concentric LVH and normal diastolic function. There is mild to moderate aortic stenosis but no other significant valvular heart disease. Pulmonary consultation was obtained. Thoracentesis performed. Patient has undergone thoracentesis in the past consistent with transudative fluid collection. Steven was admitted and placed on telemetry monitoring. He has been receiving NS + MVI and B vitamins. He did not have orthostatic changes in vitals this morning. He was ambulating in his hospital room when I evaluated him. Steven denied significant dyspnea with exertion or activity limiting dyspnea. He has chronic orthopnea. He denied fevers or chills. He has chronic lower extremity and abdominal edema. Prior evaluation for edema notable for hypoalbuminemia which is chronic. He has notable proteinuria. Dr. Wilson evaluated Steven in the nephrology clinic earlier this month regarding these findings as well as microscopic hematuria. Medical history notable intermittent recurrent microscopic hematuria. Urologic evaluation including cystoscopy was obtained a few years ago. No urologic abnormalities were identified. Dr. Wilson completed a serologic GN evaluation which was negative. This included TANNA, ANCA, ABM which were negative. C3/C4 were normal. ESR was 37. Screening for hepatitis B and C was negative. Patient tested negative for hepatitis B surface antibody. 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 [place]/lambda ratio was altered at 0.15. Random UPEP was also alarming for a monoclonal abnormality at 5.22% or 18 mg/dL. The patient does not have an increase in total serum protein. He is not hypercalcemic. He has mild chronic anemia. Findings of a Fanconi syndrome are not evident. Medical history is notable for chronic alcohol abuse as well as a significant smoking history. Steven has hypothyroidism. He had a prior syncopal episode in 2014. During the recent nephrology outpatient evaluation, furosemide was increased from 20 to 40 mg daily for control of edema. Baseline creatinine in July was 1.5 mg/dL. In November, creatinine had increased to 2.5 mg/dL. 3+ protein has been present on UA since 2014. Urine microscopy on admission was acellular. Past Medical/Surgical History Medical: Proteinuria ETOH abuse Former smoker Pleural effusions, bilateral - transudative History of microscopic hematuria Hypothyroidism First degree AVB Surgical: Thoracentesis Allergies Coded Allergies: No Known Allergies (Unverified , 12/18/16) Inpatient Medications Current Inpatient Medications Medications (Trade) Dose Ordered Sig/Sylvester Route Start Time Stop Time Status Last Admin Dose Admin Cyanocobalamin (Vitamin B-12 Tab) 1,000 mcg DAILY PO 12/19/16 09:00 01/18/17 08:59 12/19/16 07:59 1,000 MCG Folic Acid (Folvite Tab) 1 mg DAILY PO 12/19/16 09:00 01/18/17 08:59 12/19/16 07:59 1 MG Levothyroxine Sodium (Synthroid Tab) 100 mcg DAILYBB PO 12/19/16 06:00 01/18/17 05:59 12/19/16 05:32 100 MCG Simvastatin (Zocor Tab) 20 mg QAM PO 12/19/16 09:00 01/18/17 08:59 12/19/16 07:59 20 MG Potassium Chloride (Klor-Con M10) 10 meq QAM PO 12/19/16 09:00 01/18/17 08:59 12/19/16 08:00 10 MEQ Multivitamins 10 ml/Thiamine HCl 100 mg/Folic Acid 1 mg/Sodium Chloride 1,011.2 ml @ 200 mls/ hr DAILY IV 12/19/16 09:00 01/18/17 08:59 12/19/16 08:06 200 MLS/HR Potassium Chloride/Dextrose/ Sod Cl 1,000 ml @ 100 mls/hr Q10H IV 12/19/16 05:00 12/20/16 00:59 12/19/16 05:00 100 MLS/HR Lorazepam (Ativan Inj) 1 mg Q4H PRN IV 12/18/16 19:45 01/17/17 19:44 Lorazepam (Ativan Inj) 2 mg Q4H PRN IV 12/18/16 19:45 01/17/17 19:44 Acetaminophen (Tylenol Tab) 650 mg Q4H PRN PO 12/18/16 20:00 01/17/17 19:59 Al Hydrox/Mg Hydrox/Simethicone (Maalox Max Susp) 15 ml Q4H PRN PO 12/18/16 20:00 01/17/17 19:59 Magnesium Hydroxide (Milk Of Magnesia Susp) 30 ml Q12H PRN PO 12/18/16 20:00 01/17/17 19:59 Ondansetron HCl (Zofran Inj) 4 mg Q6H PRN IV 12/18/16 20:00 01/17/17 19:59 Morphine Sulfate (MoRPHine SULFATE INJ) 2 mg Q30M PRN IV 12/18/16 20:00 01/01/17 19:59 Polyethylene (Miralax Powder Packet) 17 gm DAILY PRN PO 12/18/16 20:00 01/17/17 19:59 Family History No pertinent family history No family history of renal disease Social History Smoking Status: Former Smoker Drug Use: none Marital Status: Occupation: retired, disabled Review of Systems A complete review of systems was performed. Pertinent positives are noted above. All other systems are negative. Physical Exam Date Time Temp Pulse Resp B/P (MAP) Pulse Ox O2 Delivery O2 Flow Rate FiO2 12/19/16 12:03 Room Air 12/19/16 11:39 37.1 84 21 124/77 (93) 94 Room Air 12/19/16 08:02 Room Air 12/19/16 08:00 36.8 87 20 117/70 (86) 91 Room Air 12/19/16 04:00 Room Air 12/19/16 03:12 36.7 75 20 138/77 (97) 96 Room Air 12/19/16 00:01 Room Air 12/18/16 23:21 36.9 81 18 129/81 (97) 95 Room Air 12/18/16 22:12 36.4 84 16 133/74 91 Room Air 12/18/16 20:33 81 18 158/90 94 Room Air 12/18/16 19:49 77 149/101 94 Room Air 12/18/16 18:15 71 12/18/16 18:12 127/82 12/18/16 17:56 68 20 12/18/16 17:37 36.6 72 125/80 96 Room Air General Appearance: WD/WN, no apparent distress Head: normocephalic, atraumatic Eyes: normal inspection, sclerae normal ENT: normal ENT inspection, pharynx normal Neck: supple, no JVD Respiratory/Chest: lungs clear, no respiratory distress, no accessory muscle use, + decreased breath sounds (bilateral bases) Cardiovascular: regular rate, rhythm, no gallop, no murmur Abdomen/GI: non tender, soft Back: normal inspection, no CVA tenderness Extremities/Musculoskelatal: normal inspection, + pedal edema (BL +1 to the midshin BL with chronic stasis changes) Neurologic/Psych: alert, + pertinent finding (no tremor) Skin: normal color Laboratory Results Last 24 Hours Test 12/18/16 17:30 12/18/16 17:47 12/18/16 18:00 12/18/16 23:10 White Blood Count 5.49 K/uL Red Blood Count 3.32 M/uL Hemoglobin 10.8 g/dL Hematocrit 33.4 % Mean Corpuscular Volume 100.6 fL Mean Corpuscular Hemoglobin 32.5 pg Mean Corpuscular Hemoglobin Concent 32.3 g/dl Platelet Count 240 K/uL Mean Platelet Volume 10.7 fL Neutrophils (%) (Auto) 72.7 % Lymphocytes (%) (Auto) 14.6 % Monocytes (%) (Auto) 10.0 % Eosinophils (%) (Auto) 1.8 % Basophils (%) (Auto) 0.5 % Neutrophils # (Auto) 3.99 K/uL Lymphocytes # (Auto) 0.80 K/uL Monocytes # (Auto) 0.55 K/uL Eosinophils # (Auto) 0.10 K/uL Basophils # (Auto) 0.03 K/uL RDW Standard Deviation 52.4 fL RDW Coefficient of Variation 14.2 % Immature Granulocyte % (Auto) 0.4 % Immature Granulocyte # (Auto) 0.02 K/uL Prothrombin Time 9.5 SECONDS Prothromb Time International Ratio 0.9 Activated Partial Thromboplast Time 27.5 SECONDS Partial Thromboplastin Ratio 1.1 Sodium Level 138 mmol/L Potassium Level 3.6 mmol/L Chloride Level 110 mmol/L Carbon Dioxide Level 18 mmol/L Anion Gap 10.0 mmol/L Blood Urea Nitrogen 18 mg/dl Creatinine 2.10 mg/dl Est Creatinine Clear Calc Drug Dose 32.4 ml/min Estimated GFR () 34.6 Estimated GFR (Non- 29.9 BUN/Creatinine Ratio 8.7 Random Glucose 72 mg/dl Calcium Level 7.6 mg/dl Magnesium Level 2.7 mg/dl Total Bilirubin 0.2 mg/dl Direct Bilirubin < 0.1 mg/dl Aspartate Amino Transf (AST/SGOT) 38 U/L Alanine Aminotransferase (ALT/SGPT) 18 U/L Alkaline Phosphatase 68 U/L Troponin I 0.167 ng/ml 0.192 ng/ml Total Protein 5.4 gm/dl Albumin 1.8 gm/dl Thyroid Stimulating Hormone (TSH) 9.190 uIu/ml Ethyl Alcohol mg/dL 82.0 mg/dl Urine Color YELLOW Urine Appearance CLEAR Urine pH 5.0 Urine Specific [place] 1.014 Urine Protein 2+ Urine Glucose (UA) NEG Urine Ketones NEG Urine Occult Blood 2+ Urine Nitrite NEG Urine Bilirubin NEG Urine Urobilinogen NEG Urine Leukocyte Esterase NEG Urine WBC (Auto) 1-5 /hpf Urine RBC (Auto) 0-4 /hpf Urine Hyaline Casts (Auto) 5-10 /lpf Urine Epithelial Cells (Auto) 10-20 /lpf Urine Bacteria (Auto) NEG Urine Opiates Screen NEG Urine Methadone, Qualitative NEG Urine Barbiturates NEG Urine Phencyclidine (PCP) Level NEG Ur Amphetamine/Methamphetamine NEG MDMA (Ecstasy) Screen NEG Urine Benzodiazepines Screen NEG Urine Cocaine Metabolite NEG Urine Marijuana (THC) NEG Test 12/19/16 04:52 12/19/16 10:04 12/19/16 12:02 12/19/16 13:50 White Blood Count 6.01 K/uL Red Blood Count 3.55 M/uL Hemoglobin 11.7 g/dL Hematocrit 35.5 % Mean Corpuscular Volume 100.0 fL Mean Corpuscular Hemoglobin 33.0 pg Mean Corpuscular Hemoglobin Concent 33.0 g/dl RDW Standard Deviation 51.8 fL RDW Coefficient of Variation 14.1 % Platelet Count 227 K/uL Mean Platelet Volume 10.1 fL Sodium Level 140 mmol/L Potassium Level 3.6 mmol/L Chloride Level 109 mmol/L Carbon Dioxide Level 23 mmol/L Anion Gap 8.0 mmol/L Blood Urea Nitrogen 18 mg/dl Creatinine 2.10 mg/dl Est Creatinine Clear Calc Drug Dose 32.4 ml/min Estimated GFR () 34.6 Estimated GFR (Non- 29.9 BUN/Creatinine Ratio 8.7 Random Glucose 77 mg/dl Calcium Level 7.7 mg/dl Magnesium Level 2.4 mg/dl Troponin I 0.318 ng/ml 0.285 ng/ml Free Thyroxine 1.04 ng/dl Total Triiodothyronine 0.41 ng/ml Pleural Fluid pH 7.41 Pleural Fluid Glucose 86 mg/dl Test 12/19/16 14:18 Impression (1) Acute renal insufficiency (2) Proteinuria (3) Hypoalbuminemia (4) Pleural effusion (5) Alcohol abuse (6) Abnormal SPEP (7) Syncope Mr. Steven Sullivan is a 76-year-old male with a significant history of alcohol abuse and a significant smoking history. He had a witnessed syncopal episode with LOC yesterday. The patient has acute renal insufficiency. Serum creatinine in July was 1.5 mg/ dL. In November it was 2.5 mg/dL. It remains 2.5 mg/dL. Urine microscopy is bland. CT of the abdomen was requested this morning. The patient has a longstanding history of proteinuria. 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 24 hour urine collection recently documented a creatinine clearance of 21 with 3.7 gm/d of protein. Random UPEP concerning for a monoclonal abnormality as well as abnormal findings on SPEP and an altered K/L light chain ratio. These studies will be repeated with immunofixation and a 24 hour urine collection. I reviewed with Mr. Sullivan this morning that, pending evaluation of his syncopal event, he will require a renal biopsy for definitive diagnosis. At this time, volume status and blood pressure are appropriate. He does not have accelerated hypertension to suggest nephrotic syndrome. I will check his lipid profile with AM labs. Unfortunately, ALEJANDRA/ARB to be deferred in the setting of MARY. MARY is likely related to underlying glomerulopathy as well as intravascular volume depletion. I agree with holding diuretics. I would avoid excess IVF. I would suggest stopping the NS infusion. MVI/B vitamins can be given by mouth. The patient will require monitoring for ETOH withdrawal. He will require nutritional support. Repeat evaluation of pleural fluid is pending. I suspect that these are also related to underlying proteinuric kidney disease and hypoalbuminemia. Recommendations -- Non contrast abdominal CT scan -- Maintain even fluid balance -- Hold diuretics -- Stop IVF -- Obtain 24 hour urine collection for PEP -- Repeat SPEP/immunofixation -- Medications are appropriately dosed for renal function
[2016-12-19 16:01] VITALS: BP 132/68; PULSE 89; TEMP 36.8; O2SAT 95
--- NOTE | 2016-12-19 16:33 | DIAGNOSTIC IMAGING REPORT ---
VENOUS DOPPLER LWR EXT BILA CLINICAL HISTORY: 76 years-old Male presenting with r/o dvt. TECHNIQUE: Real-time grayscale and color and spectral Doppler ultrasound imaging of the veins of the bilateral lower extremities was performed. Compression and augmentation were also utilized. COMPARISON: None. FINDINGS: Right: Common femoral vein: Patent. Femoral vein: Patent. Greater saphenous vein: Patent. Popliteal vein: Patent. Calf veins: Limited visualization. Left: Common femoral vein: Linear echogenic focus eccentrically in the left common femoral vein, possibly indicating calcification or scarring from prior thrombus. No evidence of a filling defect to indicate acute thrombus. Femoral vein: Patent. Greater saphenous vein: Patent. Popliteal vein: Patent. Calf veins: Limited visualization. Other: None. IMPRESSION: No evidence of deep venous thrombosis. Electronically signed by: Sanju Hernandez M.D. 12/19/2016 4:32 PM Dictated Date/Time: 12/19/2016 4:30 PM
--- NOTE | 2016-12-19 16:55 | EMERGENCY ROOM VISIT NOTE ---
History Report prepared by Pola: Cole Seymour Under the Supervision of: Dr. Jett Wong M.D. First contact with patient: 17:29 Stated Complaint: SYNCOPE/DIZZY History of Present Illness The patient is a 76 year old male who presents to the Emergency Room by EMS with complaints of a syncopal episode occurring just prior to arrival. He states that he was drinking at a bar when he passed out. He is reported to have been unresponsive for about five minutes. The patient notes that he typically drinks alcohol every day. He states that he did not eat well today. He states that he felt dizzy prior to the episode. The patient denies any headache or neck pain. Source of History: patient Onset: Just prior to arrival Quality: other (syncope) Timing: other (episode) Associated Symptoms: + LOC, No headache, No neck pain Note: Additional symptoms: dizziness prior to the episode. Review of Systems See HPI for pertinent positives & negatives. A total of 10 systems reviewed and were otherwise negative. Past Medical & Surgical Medical Problems: (1) Abnormal SPEP (2) Acute renal insufficiency (3) ARF (acute renal failure) (4) Frequent falls (5) Hypoalbuminemia (6) Pleural effusion (7) Proteinuria (8) Rib fracture (9) Syncope (10) Syncope and collapse Social History Problems: (1) Alcohol abuse Family History No pertinent family history Social History Smoking Status: Former Smoker Drug Use: none Marital Status: Housing Status: lives with family Occupation Status: retired Current/Historical Medications Scheduled Cholecalciferol (Vitamin D3), 2,000 INTER.UNIT PO DAILY Cyanocobalamin (Vitamin B12 500MCG), 1,000 MCG PO DAILY Folic Acid (Folvite), 1 MG PO DAILY Furosemide (Furosemide), 40 MG PO DAILY Levothyroxine Sodium (Levothyroxine Sodium), 100 MCG PO QAM Loratadine (Claritin), 10 MG PO QAM Potassium Chloride (Potassium Chloride Er), 10 MEQ PO QAM Simvastatin (Zocor), 20 MG PO QAM Allergies Coded Allergies: No Known Allergies (Unverified , 12/18/16) Physical Exam Vital Signs Date Time Temp Pulse Resp B/P (MAP) Pulse Ox O2 Delivery O2 Flow Rate FiO2 12/18/16 19:49 77 149/101 94 Room Air 12/18/16 18:15 71 12/18/16 18:12 127/82 12/18/16 17:56 68 20 12/18/16 17:37 36.6 72 125/80 96 Room Air Physical Exam GENERAL: Patient is well appearing and in no acute distress. Appears mildly intoxicated. HEENT: No acute trauma, normocephalic atraumatic, mucous membranes moist, no nasal congestion, no scleral icterus. NECK: No stridor, no adenopathy, no meningismus, trachea is midline. LUNGS: No dyspnea. Clear to auscultation and equal bilaterally. No wheeze, no rhonchi. HEART: Regular rate and rhythm. No murmurs, rubs, gallops appreciated. ABDOMEN: Soft, nontender, bowel sounds positive, no masses appreciated, no peritonitis. BACK: No midline tenderness, no CVA tenderness EXTREMITIES: Normal motion all extremities, no cyanosis. 4+ pitting edema of bilateral lower extremities which patient states is chronic. NEUROLOGIC: Alert and oriented, no acute motor or sensory deficits, no focal weakness, cranial nerves grossly intact. SKIN: No rash, no jaundice, no diaphoresis. Medical Decision & Procedures ER Provider Diagnostic Interpretation: Radiology results and stated below per my review and radiologist interpretation: HEAD WITHOUT CONTRAST (CT) FINDINGS: [place] [employer] topogram: Unremarkable. Proportional ventricular and sulcal prominence, likely age-related parenchymal volume loss. Brain parenchyma normal in appearance with preserved akers-white differentiation. No mass effect or midline shift. No hemorrhage or acute territorial infarct. No extra-axial fluid collection. Paranasal sinuses and mastoid air cells clear. Calvarium intact. IMPRESSION: 1. No acute intracranial pathology. Electronically signed by: Sanju Hernandez M.D. 12/18/2016 6:44 PM Dictated Date/Time: 12/18/2016 6:41 PM CERVICAL SPINE W/O FINDINGS: [employer] Commissioner topogram: Unremarkable. Screening of normal cervical lordosis likely positional. No acute fracture or subluxation. Redemonstration of multilevel degenerative changes with large anterior osteophytes at C4-5 through C6-7. Disc osteophyte complex in combination with uncovertebral hypertrophy and facet arthropathy results in neural foraminal narrowing on the left at C3-4 and on the right at C6-7. Mild posterior bony spurring at the disc osteophyte complex at C3-4 more eccentrically affecting the right lateral recess. Otherwise no evidence of spinal canal stenosis. Paraspinal soft tissues within normal limits. Atherosclerosis noted. Large bilateral pleural effusions, increased in size bilaterally. IMPRESSION: 1. No acute osseous injury of the cervical spine. 2. Multilevel degenerative changes similar to prior exam. 3. Increased size of bilateral pleural effusions. Electronically signed by: Sanju Hernandez M.D. 12/18/2016 6:48 PM CHEST ONE VIEW PORTABLE FINDINGS: Atherosclerosis of aortic arch. Cardiac silhouette obscured by bibasilar opacities and chronic effusions. Stable moderate left pleural effusion and left basilar opacity. Increased small right pleural effusion and right basilar opacity. No pneumothorax. Osseous structures normal. Upper abdomen normal. IMPRESSION: 1. Increased bibasilar opacities with stable to increased pleural effusions. This could represent mild pulmonary edema and/or layering effusions. Electronically signed by: Sanju Hernandez M.D. 12/18/2016 7:26 PM Laboratory Results Test 12/18/16 17:30 12/18/16 17:47 12/18/16 18:00 Immature Granulocyte % (Auto) 0.4 % White Blood Count 5.49 K/uL (4.8-10.8) Red Blood Count 3.32 M/uL (4.7-6.1) Hemoglobin 10.8 g/dL (14.0-18.0) Hematocrit 33.4 % (42-52) Mean Corpuscular Volume 100.6 fL (80-100) Mean Corpuscular Hemoglobin 32.5 pg (25-34) Mean Corpuscular Hemoglobin Concent 32.3 g/dl (32-36) Platelet Count 240 K/uL (130-400) Mean Platelet Volume 10.7 fL (7.4-10.4) Neutrophils (%) (Auto) 72.7 % Lymphocytes (%) (Auto) 14.6 % Monocytes (%) (Auto) 10.0 % Eosinophils (%) (Auto) 1.8 % Basophils (%) (Auto) 0.5 % Neutrophils # (Auto) 3.99 K/uL (1.4-6.5) Lymphocytes # (Auto) 0.80 K/uL (1.2-3.4) Monocytes # (Auto) 0.55 K/uL (0.11-0.59) Eosinophils # (Auto) 0.10 K/uL (0-0.5) Basophils # (Auto) 0.03 K/uL (0-0.2) Immature Granulocyte # (Auto) 0.02 K/uL (0.00-0.02) Prothrombin Time 9.5 SECONDS (9.0-12.0) Prothromb Time International Ratio 0.9 (0.9-1.1) Activated Partial Thromboplast Time 27.5 SECONDS (21.0-31.0) Partial Thromboplastin Ratio 1.1 Direct Bilirubin < 0.1 mg/dl (0-0.2) Aspartate Amino Transf (AST/SGOT) 38 U/L (15-37) Alanine Aminotransferase (ALT/SGPT) 18 U/L (12-78) Alkaline Phosphatase 68 U/L (45-117) Thyroid Stimulating Hormone (TSH) 9.190 uIu/ml (0.300-4.500) Ethyl Alcohol mg/dL 82.0 mg/dl (0-3) Urine Color YELLOW Urine Appearance CLEAR (CLEAR) Urine pH 5.0 (4.5-7.5) Urine Specific [place] 1.014 (1.000-1.030) Urine Protein 2+ (NEG) Urine Glucose (UA) NEG (NEG) Urine Ketones NEG (NEG) Urine Occult Blood 2+ (NEG) Urine Nitrite NEG (NEG) Urine Bilirubin NEG (NEG) Urine Urobilinogen NEG (NEG) Urine Leukocyte Esterase NEG (NEG) Urine WBC (Auto) 1-5 /hpf (0-5) Urine RBC (Auto) 0-4 /hpf (0-4) Urine Hyaline Casts (Auto) 5-10 /lpf (0-5) Urine Epithelial Cells (Auto) 10-20 /lpf (0-5) Urine Bacteria (Auto) NEG (NEG) Urine Opiates Screen NEG (NEG) Urine Methadone, Qualitative NEG (NEG) Urine Barbiturates NEG (NEG) Urine Phencyclidine (PCP) Level NEG (NEG) Ur Amphetamine/Methamphetamine NEG (NEG) MDMA (Ecstasy) Screen NEG (NEG) Urine Benzodiazepines Screen NEG (NEG) Urine Cocaine Metabolite NEG (NEG) Urine Marijuana (THC) NEG (NEG) Laboratory results as reviewed by me. Medications Administered Medications (Trade) Dose Ordered Sig/Sylvester Route Start Time Stop Time Status Last Admin Dose Admin Multivitamins 10 ml/Thiamine HCl 100 mg/Folic Acid 1 mg/Sodium Chloride 1,011.2 ml @ 250 mls/ hr Q4H3M ONCE IV 12/18/16 17:45 12/18/16 18:45 DC 12/18/16 18:14 250 MLS/HR Multivitamins 10 ml/Thiamine HCl 100 mg/Folic Acid 1 mg/Sodium Chloride 1,011.2 ml @ 100 mls/ hr Q10H7M ONCE IV 12/18/16 18:45 12/19/16 00:34 DC 12/18/16 18:45 100 MLS/HR ECG Indication: syncope Rate (beats per minute): 71 Rhythm: normal sinus Findings: 1st degree AV block, no acute ischemic change, no ectopy ED Course 1730: The patient was evaluated in room A2. A complete history and physical exam was performed. 1744: Ordered Multivitamins 10 mL/Thiamine HCl 100 mg/Folic Acid 1 mg/Sodium Chloride 1011.2 ml @ 250 mls/hr IV. 6: I checked in on the patient. His family has arrived. They state that he does not appear significantly intoxicated and that it is not abnormal for him to pass out. 1838: I reassessed the patient. He feels fine. 5: Upon reevaluation, the patient is resting. Discussed results and treatment plan with the patient. He verbalized understanding and agreement with the treatment plan. The patient will be evaluated for further management. Medical Decision Differential: Vaso-vagal, Intracerebral Event, Neurologic, Infectious, Volume Deficiency, Hypoglycemia, Electrolyte Abnormality, Cardiac Source, Toxicologic, amongst other pathologies entertained. 76 yr old male with long history alcohol use was sitting at bar when had syncopal event lasting prolonged amount of time (until awakening in ambulance). On arrival mild alcohol but a&ox4. Stable no distress. Large pleural effusions noted with leg edema. That said I think he probably euvolemic intravascular if not on dry side. Started Banana bag and monitored closely. Labs with renal failure noted form last week but acutely new from last year when here. CT head/neck negative. EKG unremarkable for ACS. Trop mildly bumped, uncertain if this is due to syncopal case or due to renal failure. Will need to come in for further work-up evaluation. Given his exam I feel this is not PE/dissection. Etoh not quite high enough to blame his syncope on. Medication Reconcilliation Current Medication List: was personally reviewed by me Blood Pressure Screening Patient's blood pressure: Normal blood pressure Blood pressure disposition: Did not require urgent referral Consults Time Called: 1909 Consulting Physician[facility] Returned Call: [phone] Discussed the patient's case. The patient will be evaluated for further treatment and disposition. Impression Primary Impression: Syncope Additional Impressions: Acute kidney failure Pleural effusion Elevated troponin Scribe Attestation The scribe's documentation has been prepared under my direction and personally reviewed by me in its entirety. I confirm that the note above accurately reflects all work, treatment, procedures, and medical decision making performed by me. Departure Information Dispostion Being Evaluated By Hospitalist Referrals Steven Parry PA-C (PCP) Problem Qualifiers
--- NOTE | 2016-12-19 17:32 | Family Medicine Progress Note ---
Progress Note Date of Service Dec 19, 2016. Subjective Pt evaluation today including: conversation w/ patient, physical exam, chart review, lab review, review of studies, conversation w/ health management consultant, review of inpatient medication list Patient well, in good spirits. He denies acute overnight events. He does not recall feeling unwell recently. He does describe decreased exercise tolerance within the last month, as well as symptoms of progressive dyspnea and orthopnea. When taking stairs at home he does have to stop midway, which is new for him. He is also now only able to walk half a block at a time, where as previously he was able to walk several blocks without requiring rest. At this time, he mostly lives on the first floor of his house, unless he has to go up to shower or change clothes. He otherwise denies chest pain, shortness of breath at rest, palpitations, abdominal pain, nausea or vomiting. He does admit to an extensive drinking history. All Other Systems: Reviewed and Negative Objective Vital Signs Date Time Temp Pulse Resp B/P (MAP) Pulse Ox O2 Delivery O2 Flow Rate FiO2 12/19/16 16:02 Room Air 12/19/16 16:01 36.8 89 19 132/68 (89) 95 Room Air 12/19/16 12:03 Room Air 12/19/16 11:39 37.1 84 21 124/77 (93) 94 Room Air 12/19/16 08:02 Room Air 12/19/16 08:00 36.8 87 20 117/70 (86) 91 Room Air 12/19/16 04:00 Room Air 12/19/16 03:12 36.7 75 20 138/77 (97) 96 Room Air 12/19/16 00:01 Room Air 12/18/16 23:21 36.9 81 18 129/81 (97) 95 Room Air 12/18/16 22:12 36.4 84 16 133/74 91 Room Air 12/18/16 20:33 81 18 158/90 94 Room Air 12/18/16 19:49 77 149/101 94 Room Air 12/18/16 18:15 71 12/18/16 18:12 127/82 12/18/16 17:56 68 20 12/18/16 17:37 36.6 72 125/80 96 Room Air Physical Exam General Appearance: WD/WN, no apparent distress Eyes: normal inspection ENT: hearing grossly normal Neck: supple Respiratory/Chest: no respiratory distress, no accessory muscle use, + decreased breath sounds (bibasilar) Cardiovascular: regular rate, rhythm, + systolic murmur Abdomen: normal bowel sounds, non tender, soft Extremities: no calf tenderness, + pedal edema, + swelling (2+ pitting edema to just below the knees) Neurologic/Psychiatric: alert, normal mood/affect, oriented x 3, + facial droop (left sided) Skin: normal color, warm/dry, no rash Laboratory Results Results Past 24 Hours Test 12/18/16 17:47 12/18/16 18:00 12/18/16 23:10 12/19/16 04:52 Range/Units Thyroid Stimulating Hormone (TSH) 9.190 0.300-4.500 uIu/ml Ethyl Alcohol mg/dL 82.0 0-3 mg/dl Urine Color YELLOW Urine Appearance CLEAR CLEAR Urine pH 5.0 4.5-7.5 Urine Specific [place] 1.014 1.000-1.030 Urine Protein 2+ NEG Urine Glucose (UA) NEG NEG Urine Ketones NEG NEG Urine Occult Blood 2+ NEG Urine Nitrite NEG NEG Urine Bilirubin NEG NEG Urine Urobilinogen NEG NEG Urine Leukocyte Esterase NEG NEG Urine WBC (Auto) 1-5 0-5 /hpf Urine RBC (Auto) 0-4 0-4 /hpf Urine Hyaline Casts (Auto) 5-10 0-5 /lpf Urine Epithelial Cells (Auto) 10-20 0-5 /lpf Urine Bacteria (Auto) NEG NEG Urine Opiates Screen NEG NEG Urine Methadone, Qualitative NEG NEG Urine Barbiturates NEG NEG Urine Phencyclidine (PCP) Level NEG NEG Ur Amphetamine/Methamphetamine NEG NEG MDMA (Ecstasy) Screen NEG NEG Urine Benzodiazepines Screen NEG NEG Urine Cocaine Metabolite NEG NEG Urine Marijuana (THC) NEG NEG Troponin I 0.192 0.318 0-0.045 ng/ml White Blood Count 6.01 4.8-10.8 K/uL Red Blood Count 3.55 4.7-6.1 M/uL Hemoglobin 11.7 14.0-18.0 g/dL Hematocrit 35.5 42-52 % Mean Corpuscular Volume 100.0 80-100 fL Mean Corpuscular Hemoglobin 33.0 25-34 pg Mean Corpuscular Hemoglobin Concent 33.0 32-36 g/dl RDW Standard Deviation 51.8 36.4-46.3 fL RDW Coefficient of Variation 14.1 11.5-14.5 % Platelet Count 227 130-400 K/uL Mean Platelet Volume 10.1 7.4-10.4 fL Sodium Level 140 136-145 mmol/L Potassium Level 3.6 3.5-5.1 mmol/L Chloride Level 109 98-107 mmol/L Carbon Dioxide Level 23 21-32 mmol/L Anion Gap 8.0 3-11 mmol/L Blood Urea Nitrogen 18 7-18 mg/dl Creatinine 2.10 0.60-1.40 mg/dl Est Creatinine Clear Calc Drug Dose 32.4 ml/min Estimated GFR () 34.6 Estimated GFR (Non- 29.9 BUN/Creatinine Ratio 8.7 10-20 Random Glucose 77 70-99 mg/dl Calcium Level 7.7 8.5-10.1 mg/dl Magnesium Level 2.4 1.8-2.4 mg/dl Free Thyroxine 1.04 0.80-1.60 ng/dl Test 12/19/16 10:04 12/19/16 12:02 12/19/16 13:50 12/19/16 14:18 Range/Units Total Triiodothyronine 0.41 0.60-1.81 ng/ml Troponin I 0.285 0-0.045 ng/ml Pleural Fluid Source LEFT LUNG Pleural Fluid Color YELLOW Pleural Fluid Appearance CLEAR Pleural Fluid WBC 325 /uL Pleural Fluid RBC < 3000 /uL Pleural Fluid pH 7.41 7.3-7.4 Pleural Fluid Polynuclear WBCs % 1.9 % Pleural Fluid Mononuclear WBCs % 98.1 % Pleural Fluid Total Protein 1.1 g/dl Pleural Fluid LDH 58 IU Pleural Fluid Glucose 86 mg/dl Pleural Fluid Amylase 46 U/L Total Bilirubin 0.3 0.2-1 mg/dl Lactate Dehydrogenase 323 87-241 U/L Total Protein 5.5 6.4-8.2 gm/dl Albumin 1.8 3.4-5.0 gm/dl Microbiology Results 12/19/16 Acid Fast Stain, Received Pending 12/19/16 Mycobacterial Culture, Received Pending 12/19/16 Gram Stain - Final, Resulted 12/19/16 Bacterial Culture, Resulted Pending Assessment and Plan 76 year old male with history of alcohol abuse, chronic hypoalbuminemia, anasarca, pleural effusions, hypothyroidism who presented with sudden dizziness and LOC for ~5 minutes, without reported seizure activity or post ictal state and without any other cardiac or vasovagal symptoms prior. Syncope - Head CT negative. He had a prior syncopal episode in 2014. EKG showed NSR with first degree AV block and new a nonspecific T wave abnormality in the anterolateral leads. Echo showed normal systolic and diastolic function with EF 70%. Borderline concentric LV hypertrophy likely secondary to mild to moderate valvular aortic stenosis. - Consider an ambulatory monitor on discharge. Pleural effusions - CXR documented bilateral pleural effusions without significant pulmonary vascular congestion. During a previous admit, an attempt was made to drain his effusions with IV albumin and Lasix which did not prove successful. Thoracentesis in the past consistent with transudative fluid collection - Pulm consulted for diagnostic and therapeutic thoracocentesis - Hold IVF ARF - acuity is not clear, he had a recent blood test revealing a creatinine of 2.3 and is undergoing a complete workup with nephrology. Prior evaluation for edema notable for chronic hypoalbuminemia, proteinuria and microscopic hematuria. No urologic abnormalities were identified and glomerulonephropathy was negative. Screening for hepatitis B and C was negative. SPEP was concerning for M-spike - Nephrology consulted, recs appreciated. - Hold Lasix, avoid nephrotoxic drugs and renally dose medications Elevated troponin - peaked at 0.318 and subsequently trending down. Possibly related to renal function or arrhythmia Hypothyroidism - TSH elevated9.19 - Continue levothyroxine - Trace T3/T4 ETOH abuse - not interested in alcohol cessation - Ativan PRN - Fall precautions - Thiamine/folic supplementation . VTE PPx -- SCDs Full code Continued [facility] stay due to: multiple IV medications needed Resident Tracking Resident Involvement: Resident Care Provided Care Provided: Adult Hospital Medicine
[2016-12-19] MEDS ORDERED: NURSING VERBAL MED ORDER ONE ×2 (18:15→19:15)
[2016-12-19 19:43] VITALS: BP 133/73; PULSE 87; TEMP 36.6; O2SAT 97
[2016-12-19 22:58] VITALS: BP 109/72; PULSE 95; TEMP 37; O2SAT 95
[2016-12-19] MEDS: ACETAMINOPHEN 325 MG TAB PO PRN (23:03)
[2016-12-19] MEDS: COUGH DROP (SUGAR FREE) LOZ 24 LOZ/1 BOX PO PRN (23:03)
[2016-12-20 03:05] VITALS: BP 106/67; PULSE 77; TEMP 36.9; O2SAT 96
[2016-12-20] MEDS: LEVOTHYROXINE 100 MCG TAB PO SCH (06:18)
[2016-12-20 07:25] LABS: BASO % 0.5 %; BASO ABS # 0.03 K/uL (0-0.2); COMPLETE YES; EOS % 2.3 %; HEMATOCRIT 31.5 % (42-52); LYMPH % 18.9 %; LYMPH ABS # 1.15 K/uL (1.2-3.4); MEAN CELL VOLUME 99.7 fL (80-100); MEAN CORPUSCULAR HEMOGLOBIN 33.5 pg (25-34); MEAN CORPUSCULAR HGB CONC 33.7 g/dl (32-36); MEAN PLATELET VOLUME 10.3 fL (7.4-10.4); NEUT % 69.3 %; PLATELET COUNT 200 K/uL (130-400); RED BLOOD COUNT 3.16 M/uL (4.7-6.1); WHITE BLOOD COUNT 6.09 K/uL (4.8-10.8)
[2016-12-20] MEDS: SIMVASTATIN 20 MG TAB PO SCH (07:46)
[2016-12-20] MEDS: CYANOCOBALAMIN 500 MCG TAB (VIT B-12) PO SCH (07:47)
[2016-12-20] MEDS: COUGH DROP (SUGAR FREE) LOZ 24 LOZ/1 BOX PO PRN (07:52)
[2016-12-20] MEDS: ACETAMINOPHEN 325 MG TAB PO PRN (07:52)
[2016-12-20 07:56] LABS: BUN/CREATININE RATIO 9.4 (10-20); CALCIUM 7.8 mg/dl (8.5-10.1); CREATININE 2.3 mg/dl (0.60-1.40); POTASSIUM 3.3 mmol/L (3.5-5.1)
[2016-12-20 07:59] VITALS: BP 131/69; PULSE 76; TEMP 37; O2SAT 98
[2016-12-20 07:59] LABS: CHOLESTEROL/HDL RATIO 1.6; PHOSPHORUS 3.2 mg/dl (2.5-4.9)
--- NOTE | 2016-12-20 10:46 | Family Medicine Progress Note ---
Progress Note Date of Service Dec 20, 2016. Subjective Pt evaluation today including: conversation w/ patient, physical exam, chart review, lab review Pain: denies pain PO Intake: good Voiding: no voiding problems 76-year-old male with past medical history of chronic alcohol abuse, chronic hypoalbuminemia, pleural effusions, hypothyroidism presented to the ER for syncopal episode and loss of consciousness for about 5 minutes while at a restaurant. No acute events overnight. Denies any chest pain, palpitations, dizziness or lightheadedness, restlessness or anxiety Constitutional: No fever, No chills Eyes: No worsening of vision ENT: No hearing loss Respiratory: No cough, No sputum Cardiovascular: No chest pain Abdomen: No pain, No nausea, No vomiting Musculoskeletal: No joint pain Male : No dysuria Neurologic: No memory loss, No weakness, No numbness/tingling Psychiatric: No depression symptoms Medications Current Inpatient Medications Medications (Trade) Dose Ordered Sig/Sylvester Route Start Time Stop Time Status Last Admin Dose Admin Cyanocobalamin (Vitamin B-12 Tab) 1,000 mcg DAILY PO 12/19/16 09:00 01/18/17 08:59 12/20/16 07:47 1,000 MCG Folic Acid (Folvite Tab) 1 mg DAILY PO 12/19/16 09:00 01/18/17 08:59 12/20/16 07:47 1 MG Levothyroxine Sodium (Synthroid Tab) 100 mcg DAILYBB PO 12/19/16 06:00 01/18/17 05:59 12/20/16 06:18 100 MCG Simvastatin (Zocor Tab) 20 mg QAM PO 12/19/16 09:00 01/18/17 08:59 12/20/16 07:46 20 MG Lorazepam (Ativan Inj) 1 mg Q4H PRN IV 12/18/16 19:45 01/17/17 19:44 Lorazepam (Ativan Inj) 2 mg Q4H PRN IV 12/18/16 19:45 01/17/17 19:44 Acetaminophen (Tylenol Tab) 650 mg Q4H PRN PO 12/18/16 20:00 01/17/17 19:59 12/20/16 07:52 650 MG Al Hydrox/Mg Hydrox/Simethicone (Maalox Max Susp) 15 ml Q4H PRN PO 12/18/16 20:00 01/17/17 19:59 Magnesium Hydroxide (Milk Of Magnesia Susp) 30 ml Q12H PRN PO 12/18/16 20:00 01/17/17 19:59 Ondansetron HCl (Zofran Inj) 4 mg Q6H PRN IV 12/18/16 20:00 01/17/17 19:59 Morphine Sulfate (MoRPHine SULFATE INJ) 2 mg Q30M PRN IV 12/18/16 20:00 01/01/17 19:59 Polyethylene (Miralax Powder Packet) 17 gm DAILY PRN PO 12/18/16 20:00 01/17/17 19:59 Menthol (Nice Kyrie) 1 kyrie PRN PRN PO 12/19/16 19:15 01/18/17 19:14 12/20/16 07:52 1 KYRIE Objective Vital Signs Date Time Temp Pulse Resp B/P (MAP) Pulse Ox O2 Delivery O2 Flow Rate FiO2 12/20/16 08:04 Room Air 12/20/16 07:59 37.0 76 18 131/69 (89) 98 12/20/16 04:00 Room Air 12/20/16 03:05 36.9 77 16 106/67 (80) 96 Room Air 12/20/16 00:01 Room Air 12/19/16 22:58 37.0 95 16 109/72 (84) 95 Room Air 12/19/16 20:00 Room Air 12/19/16 19:43 36.6 87 16 133/73 (93) 97 Room Air 12/19/16 16:02 Room Air 12/19/16 16:01 36.8 89 19 132/68 (89) 95 Room Air 12/19/16 12:03 Room Air 12/19/16 11:39 37.1 84 21 124/77 (93) 94 Room Air Physical Exam General Appearance: WD/WN, no apparent distress ENT: hearing grossly normal Neck: supple Respiratory/Chest: chest non-tender, lungs clear, normal breath sounds, no respiratory distress Cardiovascular: regular rate, rhythm Abdomen: normal bowel sounds, non tender, soft Extremities: + pedal edema Neurologic/Psychiatric: alert, normal mood/affect, oriented x 3 Laboratory Results 12/20/16 07:13 Red Blood Count 3.16, Mean Corpuscular Volume 99.7, Mean Corpuscular Hemoglobin 33.5, Mean Corpuscular Hemoglobin Concent 33.7, Mean Platelet Volume 10.3, Neutrophils (%) (Auto) 69.3, Lymphocytes (%) (Auto) 18.9, Monocytes (%) (Auto) 9.0, Eosinophils (%) (Auto) 2.3, Basophils (%) (Auto) 0.5, Neutrophils # (Auto) 4.22, Lymphocytes # (Auto) 1.15, Monocytes # (Auto) 0.55, Eosinophils # (Auto) 0.14, Basophils # (Auto) 0.03 12/20/16 07:13 Test 12/19/16 12:02 12/19/16 13:50 12/19/16 14:18 12/20/16 07:13 Troponin I 0.285 ng/ml (0-0.045) Pleural Fluid Source LEFT LUNG Pleural Fluid Color YELLOW Pleural Fluid Appearance CLEAR Pleural Fluid WBC 325 /uL Pleural Fluid RBC < 3000 /uL Pleural Fluid pH 7.41 (7.3-7.4) Pleural Fluid Polynuclear WBCs % 1.9 % Pleural Fluid Mononuclear WBCs % 98.1 % Pleural Fluid Total Protein 1.1 g/dl Pleural Fluid LDH 58 IU Pleural Fluid Glucose 86 mg/dl Pleural Fluid Amylase 46 U/L Total Bilirubin 0.3 mg/dl (0.2-1) Lactate Dehydrogenase 323 U/L (87-241) Total Protein 5.5 gm/dl (6.4-8.2) White Blood Count 6.09 K/uL (4.8-10.8) Red Blood Count 3.16 M/uL (4.7-6.1) Hemoglobin 10.6 g/dL (14.0-18.0) Hematocrit 31.5 % (42-52) Mean Corpuscular Volume 99.7 fL (80-100) Mean Corpuscular Hemoglobin 33.5 pg (25-34) Mean Corpuscular Hemoglobin Concent 33.7 g/dl (32-36) Platelet Count 200 K/uL (130-400) Mean Platelet Volume 10.3 fL (7.4-10.4) Neutrophils (%) (Auto) 69.3 % Lymphocytes (%) (Auto) 18.9 % Monocytes (%) (Auto) 9.0 % Eosinophils (%) (Auto) 2.3 % Basophils (%) (Auto) 0.5 % Neutrophils # (Auto) 4.22 K/uL (1.4-6.5) Lymphocytes # (Auto) 1.15 K/uL (1.2-3.4) Monocytes # (Auto) 0.55 K/uL (0.11-0.59) Eosinophils # (Auto) 0.14 K/uL (0-0.5) Basophils # (Auto) 0.03 K/uL (0-0.2) RDW Standard Deviation 51.8 fL (36.4-46.3) RDW Coefficient of Variation 14.2 % (11.5-14.5) Immature Granulocyte % (Auto) 0.0 % Immature Granulocyte # (Auto) 0.00 K/uL (0.00-0.02) Anion Gap 7.0 mmol/L (3-11) Est Creatinine Clear Calc Drug Dose 29.5 ml/min Estimated GFR () 31.0 Estimated GFR (Non- 26.8 BUN/Creatinine Ratio 9.4 (10-20) Calcium Level 7.8 mg/dl (8.5-10.1) Phosphorus Level 3.2 mg/dl (2.5-4.9) Albumin 1.7 gm/dl (3.4-5.0) Triglycerides Level 62 mg/dl (0-150) Cholesterol Level 159 mg/dl (0-200) HDL Cholesterol 102 mg/dl LDL Cholesterol, Calculated 45 mg/dl VLDL Cholesterol, Calculated 12 mg/dl Cholesterol/HDL Ratio 1.6 Test 12/20/16 10:41 Assessment and Plan 76-year-old male with past medical history of chronic alcohol abuse, chronic hypoalbuminemia, pleural effusions, hypothyroidism presented to the ER for syncopal episode and loss of consciousness for about 5 minutes while at a restaurant. Syncopal episode with loss of consciousness: - EKG revealed NSR with first-degree heart block and nonspecific T-wave abnormality in the anterolateral leads - Echo : Normal systolic and diastolic function with an ejection fraction of 70% - Head CT negative for intracranial bleeds - Consider outpatient cardiac monitoring for rhythm disturbance( history of a prior syncopal episode) Acute renal insufficiency: - Creatinine at 2.3, creatinine in 11/23 at 2.5, creatinine in 07/23 at 1.5 - No urological abnormalities , hep B and hep C negative, SPEP concerning for M spike - Serum immunofixation and repeat SPEP currently pending - 24-hour urine collection completed this morning and currently pending -Continue to hold diuretics -Concern for ?Multiple myeloma - To be evaluated as an outpatient by his television repairer for kidney biopsy Pleural effusion status post left sided thoracocentesis: - 1500 mL of transudative fluid tapped from left side, studies currently pending - Maintain saturations more than 92% Hypothyroidism - TSH elevated at 9.19 - Continue levothyroxine -Free T3 ordered with a.m. labs Chronic alcohol abuse : -Last drink about 2 days ago - Monitor for alcohol withdrawal, alcohol withdrawal protocol in place -Continue thiamine, folic acid, B12 DVT prophylaxis: - SCDs Full code Reviewed: Pt Seen/Exam by Me History Resident Physician Supervision Note: I interviewed and examined the patient. Discussed with Dr. Ibrahim and agree with findings and plan as documented in the note. Any exceptions or clarifications are listed here: Pt feels fine, no CP or SOB, says he was hoping to leave today. BPs elevated. Last EtOH drink 2 nights ago when he had syncope. Denies tremors or hallucinations. [employer] Supervisor up slightly today. Discussed case with Nephrology. Had 3 separate brief bursts of atrial tachycardia on tele. ECHO with normal LVEF, no diastolic dysfunction, but with mild-mod unchanged from previous Personally reviewd previous CXRs, second one appears with less effusion on left Vitals reviewed NAD, sitting on side of bed RRR, 2/6 ADILENE at RUSB Decreased BS at bases bilat, otherwise CTAB ABd +BS, soft NT ND Ext 2+ pitting edema to thighs bilat 76 yo male with a h/o EtOH abuse, chronic pleural effusions, hypothyroidism, mild-mod , Proteinuria/Nephrotic syndrome, Former smoker, History of microscopic hematuria, here with syncope, found to have increased size of pleural effusions (transudative) and worsening renal failure. -continuing to hold diuretics -could potentially discharge to home tomorrow but given bursts of atrial tachycardia today, wanted to continue to watch him especially in light of only being 2 days out from his last EtOH drink -no h/o EtOH withdrawal, but does tell me he passed out once in the past when he quit drinking, but no seizures he is aware of -follow closely for EtOH withdrawal, counseled strongly to remain abstinent from EtOH upon discharge, can give prn ativan to take but he doesn't think he' ll need it, denies he has a problem with EtOH abuse -added on po thiamine -follow PRP, will f/u with Nephro as outpt on Thursday -will need periodic surveillance of his mild-mod although this is not likely related to his syncope -will need f/u on SPEP and UPEP repeated here and possible referral to Oncology if positive -will need Renal biopsy soon as outpt which is to be arranged by Neprhrology Documented By: Marlin Alejandra Resident Tracking Resident Involvement: Resident Care Provided Care Provided: Adult Hospital Medicine
[2016-12-20 11:39] VITALS: BP 129/64; PULSE 82; TEMP 37; O2SAT 98
--- NOTE | 2016-12-20 11:45 | Pulmonology Progress Note ---
Pulmonary Progress Note Date of Service Dec 20, 2016. Attending Dr. Forbes Subjective Patient seen and examined at bedside. He states it is feeling much better. He had some left-sided pleuritic chest pain postprocedure, but states this is resolved. He also has had some blood-tinged sputum this morning with cough. He denies any shortness of breath. Objective Vital signs reviewed. MAXIMUM TEMPERATURE is 37, blood pressure 106/67 to 131/ 69, pulse 76-77, respiratory rate 16-18, pulse oximetry 96-98% on room air. General Appearance: WELL-APPEARING Head: NORMOCEPHALIC, ATRAUMATIC Eyes: PERRLA, NO DISCHARGE, EOMI, SCLERAE NORMAL, CONJUNCTIVAE NORMAL ENT: NORMAL EAR EXAM, NORMAL NASAL EXAM, NORMAL MOUTH EXAM, NORMAL THROAT EXAM Neck: NORMAL RANGE OF MOTION, NO TENDERNESS, TRACHEA MIDLINE, NO STRIDOR Respiratory: other (decreased breath sounds left lower lobe with dullness to percussion) Cardiovasular: REGULAR RATE/RHYTHM, NORMAL S1S2, NO M/G/R, NO MURMUR, NO GALLOP , NO RUB, NO JVD Abdomen: NON TENDER, NORMAL BOWEL SOUNDS, NO REBOUND, NO MASSES, NO GUARDING, NO ORGANOMEGALY, NORMAL RECTAL EXAM, NO HEMORRHOIDS, NO HERNIA Genitourinary - Male: EXTERNAL GENITALIA NORMAL Back: NORMAL INSPECTION, NO MIDLINE TENDERNESS, NO CVA TENDERNESS, NO PARAVERTEBRAL TTP Upper Extremities: NO EDEMA Lower Extremities: Edema Edema: Bilateral LE (2+) Pulses: carotid (R) (1+), carotid (L) (1+), posterior tibial (R), posterior tibial (L) (1+) Neuro: ALERT, ORIENTED x 3, NORMAL MOTOR EXAM, NORMAL SENSATION Reflexes: biceps (R) (2+), bicpes (L) Babinski Testing: right (downgoing), left (downgoing) Psychiatric: NORMAL AFFECT, NO SUICIDAL IDEATION, CONTRACTS FOR SAFETY Laboratory data reviewed. Pleural fluid thoracentesis-LEFT 12/19/2016 Bacterial culture-pending AFB culture-pending Pleural pH 7.41, pleural white blood cell count 325, pleural RBC less than 2000 , pleural polys 1.9, pleural mononuclear 98.1 Pleural total 1.1, pleural LDH 58, pleural glucose 86, pleural amylase 46, pleural cholesterol-pending Pleural cytology- pending Imaging reviewed and reviewed by me. Medications reviewed. 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 Review of previous imaging and labs his history of diastolic dysfunction with elevated BNP as well as hypoalbuminemia. A review of imaging from 2013 he had a left pleural effusion. This was tapped by Dr. Melgar last year and positive for MSSA at that time. Now he presents with syncope and fall in the setting of elevated creatinine and troponins. He is status post left thoracentesis with removal of about 1500 mL of pleural fluid that is transudative in nature. Please follow-up pleural cultures and pathology. Bilateral lower extremity Dopplers negative for DVT. He had episodes of hemoptysis this morning. Recommend putting kidney bedside for him to collect sputum. He is currently saturating well on room air however if he should become hypoxic recommend supplemental oxygen to maintain SaO2 of 92%. Currently, he is in no respiratory distress and quite stable from a respiratory standpoint. I will sign off of his case at this time. Please recontact me if you any questions or concerns. Data Medications: Current Inpatient Medications Medications (Trade) Dose Ordered Sig/Sylvester Route Start Time Stop Time Status Last Admin Dose Admin Cyanocobalamin (Vitamin B-12 Tab) 1,000 mcg DAILY PO 12/19/16 09:00 01/18/17 08:59 12/20/16 07:47 1,000 MCG Folic Acid (Folvite Tab) 1 mg DAILY PO 12/19/16 09:00 01/18/17 08:59 12/20/16 07:47 1 MG Levothyroxine Sodium (Synthroid Tab) 100 mcg DAILYBB PO 12/19/16 06:00 01/18/17 05:59 12/20/16 06:18 100 MCG Simvastatin (Zocor Tab) 20 mg QAM PO 12/19/16 09:00 01/18/17 08:59 12/20/16 07:46 20 MG Lorazepam (Ativan Inj) 1 mg Q4H PRN IV 12/18/16 19:45 01/17/17 19:44 Lorazepam (Ativan Inj) 2 mg Q4H PRN IV 12/18/16 19:45 01/17/17 19:44 Acetaminophen (Tylenol Tab) 650 mg Q4H PRN PO 12/18/16 20:00 01/17/17 19:59 12/20/16 07:52 650 MG Al Hydrox/Mg Hydrox/Simethicone (Maalox Max Susp) 15 ml Q4H PRN PO 12/18/16 20:00 01/17/17 19:59 Magnesium Hydroxide (Milk Of Magnesia Susp) 30 ml Q12H PRN PO 12/18/16 20:00 01/17/17 19:59 Ondansetron HCl (Zofran Inj) 4 mg Q6H PRN IV 12/18/16 20:00 01/17/17 19:59 Morphine Sulfate (MoRPHine SULFATE INJ) 2 mg Q30M PRN IV 12/18/16 20:00 01/01/17 19:59 Polyethylene (Miralax Powder Packet) 17 gm DAILY PRN PO 12/18/16 20:00 01/17/17 19:59 Menthol (Nice Juliocesar) 1 juliocesar PRN PRN PO 12/19/16 19:15 01/18/17 19:14 12/20/16 07:52 1 JULIOCESAR Vital Signs: Date Time Temp Pulse Resp B/P (MAP) Pulse Ox O2 Delivery O2 Flow Rate FiO2 12/20/16 08:04 Room Air 12/20/16 07:59 37.0 76 18 131/69 (89) 98 12/20/16 04:00 Room Air 12/20/16 03:05 36.9 77 16 106/67 (80) 96 Room Air 12/20/16 00:01 Room Air 12/19/16 22:58 37.0 95 16 109/72 (84) 95 Room Air 12/19/16 20:00 Room Air 12/19/16 19:43 36.6 87 16 133/73 (93) 97 Room Air 12/19/16 16:02 Room Air 12/19/16 16:01 36.8 89 19 132/68 (89) 95 Room Air 12/19/16 12:03 Room Air 12/19/16 11:39 37.1 84 21 124/77 (93) 94 Room Air Laboratory Results: Last 24 Hours Test 12/19/16 12:02 12/19/16 13:50 12/19/16 14:18 12/20/16 07:13 Troponin I 0.285 ng/ml Pleural Fluid Source LEFT LUNG Pleural Fluid Color YELLOW Pleural Fluid Appearance CLEAR Pleural Fluid WBC 325 /uL Pleural Fluid RBC < 3000 /uL Pleural Fluid pH 7.41 Pleural Fluid Polynuclear WBCs % 1.9 % Pleural Fluid Mononuclear WBCs % 98.1 % Pleural Fluid Total Protein 1.1 g/dl Pleural Fluid LDH 58 IU Pleural Fluid Glucose 86 mg/dl Pleural Fluid Amylase 46 U/L Total Bilirubin 0.3 mg/dl Lactate Dehydrogenase 323 U/L Total Protein 5.5 gm/dl Albumin 1.8 gm/dl 1.7 gm/dl White Blood Count 6.09 K/uL Red Blood Count 3.16 M/uL Hemoglobin 10.6 g/dL Hematocrit 31.5 % Mean Corpuscular Volume 99.7 fL Mean Corpuscular Hemoglobin 33.5 pg Mean Corpuscular Hemoglobin Concent 33.7 g/dl Platelet Count 200 K/uL Mean Platelet Volume 10.3 fL Neutrophils (%) (Auto) 69.3 % Lymphocytes (%) (Auto) 18.9 % Monocytes (%) (Auto) 9.0 % Eosinophils (%) (Auto) 2.3 % Basophils (%) (Auto) 0.5 % Neutrophils # (Auto) 4.22 K/uL Lymphocytes # (Auto) 1.15 K/uL Monocytes # (Auto) 0.55 K/uL Eosinophils # (Auto) 0.14 K/uL Basophils # (Auto) 0.03 K/uL RDW Standard Deviation 51.8 fL RDW Coefficient of Variation 14.2 % Immature Granulocyte % (Auto) 0.0 % Immature Granulocyte # (Auto) 0.00 K/uL Sodium Level 143 mmol/L Potassium Level 3.3 mmol/L Chloride Level 113 mmol/L Carbon Dioxide Level 23 mmol/L Anion Gap 7.0 mmol/L Blood Urea Nitrogen 22 mg/dl Creatinine 2.30 mg/dl Est Creatinine Clear Calc Drug Dose 29.5 ml/min Estimated GFR () 31.0 Estimated GFR (Non- 26.8 BUN/Creatinine Ratio 9.4 Random Glucose 85 mg/dl Calcium Level 7.8 mg/dl Phosphorus Level 3.2 mg/dl Triglycerides Level 62 mg/dl Cholesterol Level 159 mg/dl HDL Cholesterol 102 mg/dl LDL Cholesterol, Calculated 45 mg/dl VLDL Cholesterol, Calculated 12 mg/dl Cholesterol/HDL Ratio 1.6 Test 12/20/16 10:41
--- NOTE | 2016-12-20 12:10 | Nephrology Progress Note ---
Nephrology Progress Note Date of Service Dec 20, 2016. Chief Complaint Acute renal insufficiency Subjective No acute events overnight. Steven feels well this morning. He is ambulating in his hospital room. 24 hour urine collection completed at 10:30 AM. Steven reports a good appetite. He denies chest pain or palpitations. Telemetry monitoring documenting normal sinus rhythm with periods of sinus arrhythmia. Steven denies shortness of breath. He notes improvement in orthopnea following thoracentesis. He denies fevers or chills. He is voiding urine without difficulty. Steven hopes that he can be discharged home today. Review of Systems A complete review of systems was performed. Pertinent positives are noted above. All other systems are negative. Vital Signs Last 8 Hrs Date Time Temp Pulse Resp B/P (MAP) Pulse Ox O2 Delivery O2 Flow Rate FiO2 12/20/16 11:39 37.0 82 18 129/64 (85) 98 12/20/16 08:04 Room Air 12/20/16 07:59 37.0 76 18 131/69 (89) 98 12/20/16 04:00 Room Air Last Recorded Weight Weight (Kilograms): 78.300 Physical Exam General Appearance: WD/WN, no apparent distress Head: normocephalic, atraumatic Eyes: normal inspection, sclerae normal ENT: normal ENT inspection, pharynx normal Neck: supple, no JVD Respiratory/Chest: lungs clear, no respiratory distress, no accessory muscle use Cardiovascular: regular rate, rhythm, no gallop, no murmur Abdomen/GI: non tender, soft Extremities/Musculoskelatal: normal inspection, + pedal edema (+1 to mid [place] with chronic stasis changes) Neurologic/Psych: alert, normal mood/affect Family History No pertinent family history No family history of renal disease Social History Drug Use: none Marital Status: 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: retired Laboratory Results Past 24 Hours 12/20/16 07:13 Red Blood Count 3.16, Mean Corpuscular Volume 99.7, Mean Corpuscular Hemoglobin 33.5, Mean Corpuscular Hemoglobin Concent 33.7, Mean Platelet Volume 10.3, Neutrophils (%) (Auto) 69.3, Lymphocytes (%) (Auto) 18.9, Monocytes (%) (Auto) 9.0, Eosinophils (%) (Auto) 2.3, Basophils (%) (Auto) 0.5, Neutrophils # (Auto) 4.22, Lymphocytes # (Auto) 1.15, Monocytes # (Auto) 0.55, Eosinophils # (Auto) 0.14, Basophils # (Auto) 0.03 12/20/16 07:13 Test 12/19/16 12:02 12/19/16 13:50 12/19/16 14:18 12/20/16 07:13 Troponin I 0.285 ng/ml (0-0.045) Pleural Fluid Source LEFT LUNG Pleural Fluid Color YELLOW Pleural Fluid Appearance CLEAR Pleural Fluid WBC 325 /uL Pleural Fluid RBC < 3000 /uL Pleural Fluid pH 7.41 (7.3-7.4) Pleural Fluid Polynuclear WBCs % 1.9 % Pleural Fluid Mononuclear WBCs % 98.1 % Pleural Fluid Total Protein 1.1 g/dl Pleural Fluid LDH 58 IU Pleural Fluid Glucose 86 mg/dl Pleural Fluid Amylase 46 U/L Total Bilirubin 0.3 mg/dl (0.2-1) Lactate Dehydrogenase 323 U/L (87-241) Total Protein 5.5 gm/dl (6.4-8.2) Albumin 1.8 gm/dl (3.4-5.0) 1.7 gm/dl (3.4-5.0) White Blood Count 6.09 K/uL (4.8-10.8) Red Blood Count 3.16 M/uL (4.7-6.1) Hemoglobin 10.6 g/dL (14.0-18.0) Hematocrit 31.5 % (42-52) Mean Corpuscular Volume 99.7 fL (80-100) Mean Corpuscular Hemoglobin 33.5 pg (25-34) Mean Corpuscular Hemoglobin Concent 33.7 g/dl (32-36) Platelet Count 200 K/uL (130-400) Mean Platelet Volume 10.3 fL (7.4-10.4) Neutrophils (%) (Auto) 69.3 % Lymphocytes (%) (Auto) 18.9 % Monocytes (%) (Auto) 9.0 % Eosinophils (%) (Auto) 2.3 % Basophils (%) (Auto) 0.5 % Neutrophils # (Auto) 4.22 K/uL (1.4-6.5) Lymphocytes # (Auto) 1.15 K/uL (1.2-3.4) Monocytes # (Auto) 0.55 K/uL (0.11-0.59) Eosinophils # (Auto) 0.14 K/uL (0-0.5) Basophils # (Auto) 0.03 K/uL (0-0.2) RDW Standard Deviation 51.8 fL (36.4-46.3) RDW Coefficient of Variation 14.2 % (11.5-14.5) Immature Granulocyte % (Auto) 0.0 % Immature Granulocyte # (Auto) 0.00 K/uL (0.00-0.02) Anion Gap 7.0 mmol/L (3-11) Est Creatinine Clear Calc Drug Dose 29.5 ml/min Estimated GFR () 31.0 Estimated GFR (Non- 26.8 BUN/Creatinine Ratio 9.4 (10-20) Calcium Level 7.8 mg/dl (8.5-10.1) Phosphorus Level 3.2 mg/dl (2.5-4.9) Triglycerides Level 62 mg/dl (0-150) Cholesterol Level 159 mg/dl (0-200) HDL Cholesterol 102 mg/dl LDL Cholesterol, Calculated 45 mg/dl VLDL Cholesterol, Calculated 12 mg/dl Cholesterol/HDL Ratio 1.6 Test 12/20/16 10:30 Allergies Coded Allergies: No Known Allergies (Unverified , 12/18/16) Medications Current Inpatient Medications Medications (Trade) Dose Ordered Sig/Sylvester Route Start Time Stop Time Status Last Admin Dose Admin Cyanocobalamin (Vitamin B-12 Tab) 1,000 mcg DAILY PO 12/19/16 09:00 01/18/17 08:59 12/20/16 07:47 1,000 MCG Folic Acid (Folvite Tab) 1 mg DAILY PO 12/19/16 09:00 01/18/17 08:59 12/20/16 07:47 1 MG Levothyroxine Sodium (Synthroid Tab) 100 mcg DAILYBB PO 12/19/16 06:00 01/18/17 05:59 12/20/16 06:18 100 MCG Simvastatin (Zocor Tab) 20 mg QAM PO 12/19/16 09:00 01/18/17 08:59 12/20/16 07:46 20 MG Lorazepam (Ativan Inj) 1 mg Q4H PRN IV 12/18/16 19:45 01/17/17 19:44 Lorazepam (Ativan Inj) 2 mg Q4H PRN IV 12/18/16 19:45 01/17/17 19:44 Acetaminophen (Tylenol Tab) 650 mg Q4H PRN PO 12/18/16 20:00 01/17/17 19:59 12/20/16 07:52 650 MG Al Hydrox/Mg Hydrox/Simethicone (Maalox Max Susp) 15 ml Q4H PRN PO 12/18/16 20:00 01/17/17 19:59 Magnesium Hydroxide (Milk Of Magnesia Susp) 30 ml Q12H PRN PO 12/18/16 20:00 01/17/17 19:59 Ondansetron HCl (Zofran Inj) 4 mg Q6H PRN IV 12/18/16 20:00 01/17/17 19:59 Morphine Sulfate (MoRPHine SULFATE INJ) 2 mg Q30M PRN IV 12/18/16 20:00 01/01/17 19:59 Polyethylene (Miralax Powder Packet) 17 gm DAILY PRN PO 12/18/16 20:00 01/17/17 19:59 Menthol (Nice Kyrie) 1 kyrie PRN PRN PO 12/19/16 19:15 01/18/17 19:14 12/20/16 07:52 1 KYRIE Impression (1) Acute renal insufficiency (2) Proteinuria (3) Hypoalbuminemia (4) Pleural effusion (5) Alcohol abuse (6) Abnormal SPEP (7) Syncope Mr. Steven Sullivan is a 76-year-old male with a significant history of alcohol abuse who was admitted following a witnessed syncopal episode with LOC. He was intravascularly volume depleted. He has acute renal insufficiency. Serum creatinine in July was 1.5 mg/dL. In November it was 2.5 mg/dL. It remains 2.3 mg/dL. Urine microscopy is bland. CT of the abdomen was reviewed this morning. Kidneys appear normal in size. There are no significant appreciable pathologic changes in the kidneys. Anasarca and old/healed pelvic fractures are noted. At this time, volume status and blood pressure are appropriate. He does not have accelerated hypertension or hyperlipidemia consistent with nephrotic syndrome. He does have nephrotic range proteinuria. Unfortunately, ALEJANDRA/ARB to be deferred in the setting of MARY. Prior evaluation concerning for monoclonal gammopathy with potential renal significance. Renal biopsy may be scheduled as an outpatient. 24 hour urine collection was completed today and serum immunofixation and repeat SPEP have been sent. Recommendations -- I discussed the plan of care with Dr. Alejandra this morning -- Steven remains hospitalized on telemetry at this time for additional monitoring -- Follow up with Dr. Wilson in the nephrology clinic and arrangements for a biopsy can be made as an outpatient -- Overall renal function is stable -- Blood pressure and volume status are appropriate -- I would continue to hold diuretics and maintain an even fluid balance -- Repeat paraproteinemia evaluation pending -- Medications are appropriately dosed for renal function
[2016-12-20 12:15] LABS: URINE TOTAL PROTEIN 198.6 mg/dl (0-11.9)
[2016-12-20] MEDS ORDERED: POTASSIUM CHLORIDE 20 MEQ TABCR PO ONE (12:15)
[2016-12-20 12:27] LABS: URINE TOTAL PROTEIN CALC 3078.3 mg/24 hr (0-149.1)
[2016-12-20 15:03] VITALS: BP 113/71; PULSE 82; TEMP 36.9; O2SAT 97
[2016-12-20 18:54] VITALS: BP 113/70; PULSE 80; TEMP 37.1; O2SAT 97
[2016-12-21 00:14] VITALS: BP 120/71; PULSE 83; TEMP 36.9; O2SAT 94
[2016-12-21 03:45] VITALS: BP 118/72; PULSE 75; TEMP 36.9; O2SAT 96
[2016-12-21] MEDS: LEVOTHYROXINE 100 MCG TAB PO SCH (06:02)
[2016-12-21 07:27] LABS: BASO % 0.9 %; BASO ABS # 0.05 K/uL (0-0.2); EOS % 4.6 %; HEMATOCRIT 27.5 % (42-52); IG% 0.2 %; LYMPH % 19.6 %; LYMPH ABS # 1.11 K/uL (1.2-3.4); MEAN CORPUSCULAR HEMOGLOBIN 33.5 pg (25-34); MEAN PLATELET VOLUME 10.1 fL (7.4-10.4); MONO % 8.8 %; NEUT % 65.9 %; PLATELET COUNT 180 K/uL (130-400); RED BLOOD COUNT 2.75 M/uL (4.7-6.1); WHITE BLOOD COUNT 5.65 K/uL (4.8-10.8)
[2016-12-21 07:37] LABS: COMPLETE YES; MEAN CORPUSCULAR HGB CONC 33.5 g/dl (32-36)
[2016-12-21 07:45] VITALS: BP 114/70; PULSE 87; TEMP 36.8; O2SAT 90
[2016-12-21] MEDS: CYANOCOBALAMIN 500 MCG TAB (VIT B-12) PO SCH (07:50)
[2016-12-21] MEDS: SIMVASTATIN 20 MG TAB PO SCH (07:50)
[2016-12-21 07:55] LABS: BUN/CREATININE RATIO 10.3 (10-20); CALCIUM 7.2 mg/dl (8.5-10.1); CREATININE 2.2 mg/dl (0.60-1.40); POTASSIUM 3.6 mmol/L (3.5-5.1)
[2016-12-21 07:56] LABS: ALKALINE PHOSPHATASE 49 U/L (45-117); ALT/SGPT 14 U/L (12-78); AST/SGOT 27 U/L (15-37)
[2016-12-21] MEDS ORDERED: THIAMINE HCL 100 MG TAB PO SCH (09:00)
--- NOTE | 2016-12-21 10:53 | Nephrology Progress Note ---
Nephrology Progress Note Date of Service Dec 21, 2016. Chief Complaint Acute renal insufficiency Subjective No acute events overnight. Steven feels well this morning. He is dressed and looking forward to discharge home. He denies any shortness of breath. Edema remains stable and tolerable. He reports that he has been keeping his feet elevated and this makes the difference. We discussed the importance of follow up as an outpatient regarding his kidney findings. Review of Systems A complete review of systems was performed. Pertinent positives are noted above. All other systems are negative. Vital Signs Last 8 Hrs Date Time Temp Pulse Resp B/P (MAP) Pulse Ox O2 Delivery O2 Flow Rate FiO2 12/21/16 08:05 Room Air 12/21/16 07:45 36.8 87 18 114/70 (85) 90 12/21/16 04:00 Room Air 12/21/16 03:45 36.9 75 17 118/72 (87) 96 Room Air Last Recorded Weight Weight (Kilograms): 77.400 Physical Exam General Appearance: no apparent distress, + thin Head: normocephalic, atraumatic Eyes: normal inspection, sclerae normal ENT: normal ENT inspection, pharynx normal Neck: supple, no JVD Respiratory/Chest: lungs clear, no respiratory distress, no accessory muscle use Cardiovascular: regular rate, rhythm, no gallop Abdomen/GI: non tender, soft Extremities/Musculoskelatal: normal inspection, + pedal edema (+1 edema to mid franklin) Neurologic/Psych: alert, normal mood/affect, + pertinent finding (no tremor) Family History No pertinent family history No family history of renal disease Social History Drug Use: none Marital Status: Occupation: retired Laboratory Results Past 24 Hours 12/21/16 07:12 Red Blood Count 2.75, Mean Corpuscular Volume 100.0, Mean Corpuscular Hemoglobin 33.5, Mean Corpuscular Hemoglobin Concent 33.5, Mean Platelet Volume 10.1, Neutrophils (%) (Auto) 65.9, Lymphocytes (%) (Auto) 19.6, Monocytes (%) ( Auto) 8.8, Eosinophils (%) (Auto) 4.6, Basophils (%) (Auto) 0.9, Neutrophils # ( Auto) 3.72, Lymphocytes # (Auto) 1.11, Monocytes # (Auto) 0.50, Eosinophils # ( Auto) 0.26, Basophils # (Auto) 0.05 12/21/16 07:12 Test 12/21/16 07:12 White Blood Count 5.65 K/uL (4.8-10.8) Red Blood Count 2.75 M/uL (4.7-6.1) Hemoglobin 9.2 g/dL (14.0-18.0) Hematocrit 27.5 % (42-52) Mean Corpuscular Volume 100.0 fL (80-100) Mean Corpuscular Hemoglobin 33.5 pg (25-34) Mean Corpuscular Hemoglobin Concent 33.5 g/dl (32-36) Platelet Count 180 K/uL (130-400) Mean Platelet Volume 10.1 fL (7.4-10.4) Neutrophils (%) (Auto) 65.9 % Lymphocytes (%) (Auto) 19.6 % Monocytes (%) (Auto) 8.8 % Eosinophils (%) (Auto) 4.6 % Basophils (%) (Auto) 0.9 % Neutrophils # (Auto) 3.72 K/uL (1.4-6.5) Lymphocytes # (Auto) 1.11 K/uL (1.2-3.4) Monocytes # (Auto) 0.50 K/uL (0.11-0.59) Eosinophils # (Auto) 0.26 K/uL (0-0.5) Basophils # (Auto) 0.05 K/uL (0-0.2) RDW Standard Deviation 52.4 fL (36.4-46.3) RDW Coefficient of Variation 14.4 % (11.5-14.5) Immature Granulocyte % (Auto) 0.2 % Immature Granulocyte # (Auto) 0.01 K/uL (0.00-0.02) Anion Gap 6.0 mmol/L (3-11) Est Creatinine Clear Calc Drug Dose 30.9 ml/min Estimated GFR () 32.7 Estimated GFR (Non- 28.3 BUN/Creatinine Ratio 10.3 (10-20) Calcium Level 7.2 mg/dl (8.5-10.1) Total Bilirubin 0.2 mg/dl (0.2-1) Direct Bilirubin < 0.1 mg/dl (0-0.2) Aspartate Amino Transf (AST/SGOT) 27 U/L (15-37) Alanine Aminotransferase (ALT/SGPT) 14 U/L (12-78) Alkaline Phosphatase 49 U/L (45-117) Total Protein 4.3 gm/dl (6.4-8.2) Albumin 1.4 gm/dl (3.4-5.0) Allergies Coded Allergies: No Known Allergies (Unverified , 12/18/16) Medications Current Inpatient Medications Medications (Trade) Dose Ordered Sig/Sylvester Route Start Time Stop Time Status Last Admin Dose Admin Cyanocobalamin (Vitamin B-12 Tab) 1,000 mcg DAILY PO 12/19/16 09:00 01/18/17 08:59 12/21/16 07:50 1,000 MCG Folic Acid (Folvite Tab) 1 mg DAILY PO 12/19/16 09:00 01/18/17 08:59 12/21/16 07:50 1 MG Levothyroxine Sodium (Synthroid Tab) 100 mcg DAILYBB PO 12/19/16 06:00 01/18/17 05:59 12/21/16 06:02 100 MCG Simvastatin (Zocor Tab) 20 mg QAM PO 12/19/16 09:00 01/18/17 08:59 12/21/16 07:50 20 MG Lorazepam (Ativan Inj) 1 mg Q4H PRN IV 12/18/16 19:45 01/17/17 19:44 Lorazepam (Ativan Inj) 2 mg Q4H PRN IV 12/18/16 19:45 01/17/17 19:44 Acetaminophen (Tylenol Tab) 650 mg Q4H PRN PO 12/18/16 20:00 01/17/17 19:59 12/20/16 07:52 650 MG Al Hydrox/Mg Hydrox/Simethicone (Maalox Max Susp) 15 ml Q4H PRN PO 12/18/16 20:00 01/17/17 19:59 Magnesium Hydroxide (Milk Of Magnesia Susp) 30 ml Q12H PRN PO 12/18/16 20:00 01/17/17 19:59 Ondansetron HCl (Zofran Inj) 4 mg Q6H PRN IV 12/18/16 20:00 01/17/17 19:59 Morphine Sulfate (MoRPHine SULFATE INJ) 2 mg Q30M PRN IV 12/18/16 20:00 01/01/17 19:59 Polyethylene (Miralax Powder Packet) 17 gm DAILY PRN PO 12/18/16 20:00 01/17/17 19:59 Menthol (Nice Kyrie) 1 kyrie PRN PRN PO 12/19/16 19:15 01/18/17 19:14 12/20/16 07:52 1 KYRIE Thiamine HCl (Vitamin B-1 Tab) 100 mg QAM PO 12/21/16 09:00 01/20/17 08:59 12/21/16 07:50 100 MG Impression (1) Acute renal insufficiency (2) Proteinuria (3) Hypoalbuminemia (4) Pleural effusion (5) Alcohol abuse (6) Abnormal SPEP (7) Syncope Mr. Steven Sullivan is a 76-year-old male with a significant history of alcohol abuse who was admitted following a witnessed syncopal episode. He was intravascularly volume depleted with acute renal insufficiency. Creatinine remains stable at recent baseline. The patient unfortunately had a loss of GFR associated with notable proteinuria and a monoclonal abnormality. Urine microscopy is bland. I discussed with Mr. Sullivan the implications of a monoclonal gammopathy with renal significance. We reviewed the importance of outpatient follow up including role of kidney biopsy and follow up of his 24 hour UPEP and repeat SPEP w/ immunofixation. He has follow up with Dr. Wilson in the nephrology clinic tomorrow. Steven acknowledged the risks that alcohol consumption pose to his current health conditions. At this time, volume status and blood pressure are appropriate. ALEJANDRA/ARB to be deferred in the setting of MARY. Diuretics held. The plan of care was reviewed with Dr. Alejandra this morning. Recommendations -- Steven is to be discharged today -- Blood pressure, volume status and electrolytes are appropriate -- Renal function stable -- ALEJANDRA/ARB deferred -- Hold diuretics: Furosemide 20 mg PRN for LE edema would be an appropriate reintroduction -- Follow up with Dr. Wilson in the nephrology clinic ([address]) tomorrow -- Arrangements for a biopsy can be made as an outpatient -- 24 hour urine PEP, as well as SPEP/immunofixation pending -- Medications are appropriately dosed for renal function
[2016-12-21 11:35] VITALS: BP 114/70; PULSE 87; TEMP 36.8; O2SAT 90
[2016-12-21 12:11] VITALS: BP 125/69; PULSE 86
[2016-12-21] MEDS ORDERED: THM100 PO (13:46)
[2016-12-21] MEDS ORDERED: ATV/1 PO (14:08)
--- NOTE | 2016-12-21 14:08 | Discharge Instructions ---
Discharge Instructions Date of Service Dec 21, 2016. Admission Reason for Admission: Afr, Syncope And Collapse Discharge Discharge Diagnosis / Problem: syncope, acute renal failure Discharge Goals Goal(s): Decrease discomfort, Improve function Activity Recommendations Activity Limitations: per Instructions/Follow-up section . Instructions / Follow-Up Instructions / Follow-Up You were admitted after a Fainting episode while at a restaurant. You were evaluated with cardiac monitoring and were seen by pulmonology and nephrology. He also had some fluid removed from the left lung, the studies of which are currently pending. He also had an extensive workup for your kidneys. Recommendations : Syncopal/fainting episode: - You are recommended to follow-up with the PCP who will make arrangements to see a vice president of software engineering or have an outpatient cardiac monitoring to further evaluate any rhythm disturbances which could've contributed to your fainting episode. - Please return to the ER if he develop any lightheadedness/dizziness/ palpitations/chest pain Acute kidney failure: - You were monitored and evaluated by nephrology while in the hospital for an acute kidney failure. Please follow-up with the bus and trolley dispatcher tomorrow as scheduled - Your regular Lasix has been stopped. You may use 20 mg Lasix as needed for swelling in your legs. Hypothyroidism - Your thyroid-stimulating hormone level was elevated , free T4 however was normal - Continue levothyroxine at current dose - Follow up with your PCP for recheck of Thyroid hormones in the future Chronic alcohol abuse : - We strongly encourage you to stop drinking. - You may use ativan 1 mg tab every 4-6 hours as needed if you develop any withdrawal symptoms like restlessness, palpitations, anxiety, tremors. - If they continue even after using Ativan, please report to the ER -Continue to use thiamine, folic acid, B12 supplements Please follow up with nephrology/Dr. Wilson tomorrow - Please follow-up with your primary care doctor in about a week Current Hospital Diet Patient's current hospital diet: Regular Diet Discharge Diet Recommended Diet: Regular Diet Procedures Procedures Performed: Thoracentesis Pending Studies Studies pending at discharge: yes List of pending studies: 24 hour urine PEP, as well as SPEP/immunofixation pending Laboratory Results Lipid Panel Test 12/20/16 07:13 Range/Units Triglycerides Level 62 0-150 mg/dl Cholesterol Level 159 0-200 mg/dl HDL Cholesterol 102 mg/dl Cholesterol/HDL Ratio 1.6 LDL Cholesterol, Calculated 45 mg/dl Medical Emergencies . Who to Call and When: Medical Emergencies: If at any time you feel your situation is an emergency, please call 911 immediately. . Non-Emergent Contact Non-Emergency issues call your: Primary Care Provider . . "Provider Documentation" section prepared by Catrachita Ibrahim. . VTE Core Measure Inpt VTE Proph given/why not?: SCD's
--- NOTE | 2016-12-21 14:26 | Discharge Summary ---
Discharge Summary Date of Service Dec 21, 2016. Discharge Summary Admission Date: Dec 18, 2016 at 19:54 Discharge Date: Dec 21, 2016 Discharge Disposition: Home Principal Diagnosis: Syncope Procedures: thoracentesis Consultations: Nephrology, pulmonology Medication Reconciliation New Medications: Lorazepam (Ativan) 1 Mg Tab 1 MG PO Q6H, #10 TAB Thiamine HCl (Vitamin B-1) 100 Mg Tab 100 MG PO QAM for 30 Days, #30 TAB Continued Medications: Cholecalciferol (Vitamin D3) 2,000 Unit Cap 2000 INTER.UNIT PO DAILY, CAP 3 Refills Cyanocobalamin (Vitamin B12 500MCG) 500 Mcg Tab 1000 MCG PO DAILY, TAB Folic Acid (Folvite) 1 Mg Tab 1 MG PO DAILY, TAB Levothyroxine Sodium (Levothyroxine Sodium) 100 Mcg Tab 100 MCG PO QAM Loratadine (Claritin) 10 Mg Tab 10 MG PO QAM, TAB Simvastatin (Zocor) 20 Mg Tab 20 MG PO QAM, TAB Discontinued Medications: Furosemide (Furosemide) 20 Mg Tab 40 MG PO DAILY Potassium Chloride (Potassium Chloride Er) 10 Meq Tab 10 MEQ PO QAM Discharge Exam Review of Systems: Constitutional: No fever, No chills ENT: No hearing loss Respiratory: No cough, No sputum Cardiovascular: No chest pain Abdomen: No pain, No nausea, No vomiting Genitourinary - Male: No hematuria, No dysuria, No urinary frequency Neurologic: No memory loss Psychiatric: No depression symptoms Endocrine: No fatigue Physical Exam: General Appearance: no apparent distress, + thin ENT: hearing grossly normal Neck: supple Respiratory/Chest: lungs clear, normal breath sounds, no respiratory distress Cardiovascular: regular rate, rhythm Abdomen / GI: normal bowel sounds, non tender, soft Extremities: + pedal edema Neurologic/Psychiatric: alert, normal mood/affect, oriented x 3 Hospital Course 76 y/o M Hx ETOH abuse, chronic hypoalbuminemia, anasarca, pleural effusions, hypothyroidism. Pt was having a few beers at a local bar when he became very dizzy and suddenly lost consciousness. He fell on to the floor and did not come around for approximately 5 minutes. There was no reported seizure activity or post ictal state. He does not recall any additional preceding symptoms such as CP, or palpitations. Initial labs reveal renal failure which was present on labs 6 days prior but not one year ago, hypoalbuminemia and an elevated troponin. Imaging confirms pleural effusions. Hospital course: He was admitted to telemetry and evaluated for the syncopal episode. Syncope - Head CT negative. He had a prior syncopal episode in 2014. EKG showed NSR with first degree AV block and new a nonspecific T wave abnormality in the anterolateral leads. Echo showed normal systolic and diastolic function with EF 70%. Borderline concentric LV hypertrophy likely secondary to mild to moderate valvular aortic stenosis. He was found to have a few bursts of atrial tachycardia lasting for a few seconds and resolving spontaneously on the exchange underwriting consultant but he was not symptomatic with any of them. He was recommended to follow up with his PCP for a cardiology referral for ambulatory cardiac monitoring Pleural effusions - CXR documented bilateral pleural effusions without significant pulmonary vascular congestion. Pulmonology was consulted and thoracentesis was performed, studies of which are currently pending. ARF -On admission his creatinine was 2.3 however it was 1.5 about 6 months ago. He was also found to have hypoalbuminemia and proteinuria and Microscopic hematuria and was being evaluated by nephrology as an outpatient. No urologic abnormalities were identified and glomerulonephropathy was negative. Screening for hepatitis B and C was negative.SPEP was concerning for an M spike. Nephrology was consulted, Serum immunofixation and repeat SPEP, 24-hour urine collection currently pending. He was to follow up with nephrology as an outpatient for referral for a kidney biopsy. Lasix was held and he was recommended to use 20 mg of Lasix as needed for Lower extremity swelling Hypothyroidism - TSH elevated9.19. He will need a repeat TSH testing with free T3 and T4 as an outpatient. For now he will continue on his regular dose of levothyroxine Chronic alcohol abuse - not interested in alcohol cessation. Counseled about alcohol cessation. During his admission he was monitored for withdrawal symptoms He was discharged with a few tablets of lorazepam and recommended to use them as needed if he experience any withdrawal symptoms like restlessness and anxiety ,Tremors. He was also cautioned to return to the ER if he developed any worsening tremors not relieved by the ativan - Thiamine/folic supplementation . Follow-up with PCP in about a week Follow-up with nephrology as scheduled. Total Time Spent: Greater than 30 minutes This includes examination of the patient, discharge planning, medication reconciliation, and communication with other providers. Discharge Instructions Please refer to the electronic Patient Visit Report (Discharge Instructions) for additional information. Follow-Up Follow-up with PCP in about a week. Follow-up with nephrology as scheduled Resident Tracking Resident Involvement: Resident Care Provided Care Provided: [facility] Medicine
[2016-12-22 15:51] LABS: ALBUMIN 2.3 G/DL (3.8-4.8); FREE KAPPA 57.1 MG/L (3.3-19.4); FREE KAPPA/LAMBDA RATIO 0.18 (0.26-1.65); FREE LAMBDA 322.9 MG/L (5.7-26.3); GAMMA GLOBULIN 0.8 G/DL (0.8-1.7); MONOCLONAL PROTEIN BAND 1 0.3 G/DL (NOT DETECTED); MONOCLONAL PROTEIN BAND 2 0.3 G/DL (NOT DETECTED)
== END 2016-12-21 14:20 | disposition home or self-care (01) | DRG 683 ==
LOC: EDBD 17:26 → C.EDA 17:27 → C.2T 19:54 → ENRESERV 20:08
PROVIDERS: ADMIT Internal Medicine; ATTEND Family Medicine
PROC: 0W9B3ZZ Drainage of Left Pleural Cavity, Percutaneous Approach (ICD-10-PCS; principal; 2016-12-19)
DX: N17.9 Acute kidney failure, unspecified (principal); J90 Pleural effusion, not elsewhere classified; R55 Syncope and collapse; E03.9 Hypothyroidism, unspecified; F10.10 Alcohol abuse, uncomplicated; Z79.899 Other long term (current) drug therapy; Z87.891 Personal history of nicotine dependence

== ENCOUNTER → 2017-01-20 | Outpatient (CLI) | payer OTHER ==
[~2017-01-20] MED LIST changes: -ASPI325T45 PO; +CHOL2000 PO; +CYAN500T13 PO; -DIPH-437 PO; -OXYC-643 PO; -POTA-74 PO; +THM100 PO
--- NOTE | 2017-01-20 16:47 | DIAGNOSTIC IMAGING REPORT ---
CHEST 2 VIEWS ROUTINE CLINICAL HISTORY: 76 years-old Male presenting with R05 [id number]. TECHNIQUE: PA and lateral views of the chest were obtained. COMPARISON: 12/19/2016. FINDINGS: Atherosclerosis of aortic arch. Cardiac silhouette obscured by the now large left pleural effusion and left mid to basilar consolidation. Small right pleural effusion with minimal right basilar opacity. No pneumothorax. Osseous structures normal. Upper abdomen normal. IMPRESSION: 1. Increasing size of the now large left pleural effusion with left lung atelectasis/consolidation. Underlying infection is difficult to exclude. Small right pleural effusion and right basilar atelectasis. Electronically signed by: Sanju Hernandez M.D. 01/20/2017 4:45 PM Dictated Date/Time: 01/20/2017 4:43 PM
--- NOTE | 2017-01-20 17:46 | DIAGNOSTIC IMAGING REPORT ---
L FOOT MIN 3 VIEWS ROUTINE CLINICAL HISTORY: 76 years-old Male presenting with M79.672 Foot pain, [id number]. TECHNIQUE: Frontal, oblique, and lateral views of the left foot were obtained. COMPARISON: None. FINDINGS: Osteopenia suggested. No acute fracture or acute malalignment. Minimal degenerative change noted at the interphalangeal joint of the first toe. Os peroneum noted. Accessory navicular noted. Atherosclerosis. IMPRESSION: No acute osseous injury of the left foot. Electronically signed by: Sanju Hernandez M.D. 01/20/2017 5:45 PM Dictated Date/Time: 01/20/2017 5:43 PM
[2017-01-20 17:47] LABS: BASO % 0.4 %; BASO ABS # 0.03 K/uL (0-0.2); COMPLETE YES; EOS % 0.6 %; HEMATOCRIT 34.9 % (42-52); IG% 0.1 %; LYMPH % 9.1 %; LYMPH ABS # 0.74 K/uL (1.2-3.4); MEAN CELL VOLUME 100.6 fL (80-100); MEAN CORPUSCULAR HEMOGLOBIN 33.1 pg (25-34); MEAN PLATELET VOLUME 11.4 fL (7.4-10.4); MONO % 6.3 %; NEUT % 83.5 %; PLATELET COUNT 332 K/uL (130-400); RED BLOOD COUNT 3.47 M/uL (4.7-6.1); WHITE BLOOD COUNT 8.13 K/uL (4.8-10.8)
[2017-01-20 18:02] LABS: URINE APPEARANCE CLOUDY (CLEAR); URINE BILIRUBIN NEG (NEG); URINE COLOR YELLOW; URINE EPITHELIAL CELL AUTO >30 /lpf (0-5); URINE NITRITE NEG (NEG); URINE SPECIFIC GRAVITY 1.029 (1.000-1.030); UROBILINOGEN NEG (NEG)
[2017-01-20 18:14] LABS: MANUAL MICROSCOPIC REQUIRED? NO; REVIEW REQ? YES; URINE PROTIEN/CREAT RATIO 4.2 (0-0.2); URINE TOTAL PROTEIN 1169.7 mg/dl (0-11.9)
[2017-01-20 20:40] LABS: URINE MUCUS PRESENT (NONE PRSENT)
== END | disposition home or self-care (01) ==
LOC: C.RAD1850 16:06
PROVIDERS: ATTEND Physician Assistant
DX: M79.672 Pain in left foot (principal); R05 Cough; E88.09 Other disorders of plasma-protein metabolism, not elsewhere classified; M10.9 Gout, unspecified; D47.2 Monoclonal gammopathy

== ENCOUNTER → 2017-01-21 | Outpatient (CLI) | payer OTHER ==
[2017-01-21 17:50] LABS: BLOOD UREA NITROGEN 19 mg/dl (7-18); BUN/CREATININE RATIO 8.3 (10-20); CARBON DIOXIDE 26 mmol/L (21-32); CHLORIDE 105 mmol/L (98-107); CREATININE 2.29 mg/dl (0.60-1.40); GLUCOSE 120 mg/dl (70-99); PHOSPHORUS 2.6 mg/dl (2.5-4.9); POTASSIUM 3.2 mmol/L (3.5-5.1); SODIUM 139 mmol/L (136-145)
== END | disposition home or self-care (01) ==
LOC: C.LABPBG 15:22
PROVIDERS: ATTEND Internal Medicine Nephrology
DX: E88.09 Other disorders of plasma-protein metabolism, not elsewhere classified (principal); D47.2 Monoclonal gammopathy; M10.9 Gout, unspecified

== ENCOUNTER 2017-02-23 16:42 | Inpatient (IN) | payer OTHER ==
[~2017-02-23] VITALS: Ht 180.3 cm; Wt 75.0 kg
[~2017-02-23 16:42] MED LIST changes: -FOLI1TAB7 PO; +FOLI1TAB8 PO
--- NOTE | 2017-02-23 17:05 | EMERGENCY ROOM VISIT NOTE ---
History Report prepared by Pola: Branden Chowdhury Under the Supervision of: Dr. Jero Christianson M.D. First contact with patient: 16:50 Chief Complaint: SWELLING TO EXTREMITY Stated Complaint: EDEMA, LEGS, OPEN WOUND History of Present Illness The patient is a 76 year old male who presents to the Emergency Room with complaints of constant leg swelling beginning today. Per family, the patient has a history of amyloidosis and is also currently on chemotherapy. She notes that the patient missed his last chemotherapy treatment, and that his last one was over a week ago. She reports that the patient had a medication change last week, from 80mg of Lasix twice a day to 40mg once a day. She states that the patient's legs are not checked daily, and she is not exactly sure when the swelling began. She notes that the patient's legs were significantly swollen today, prompting their visit to the emergency department. The patient reports that he has a wound on his left leg, but is unsure how it occurred. He also complains of SOB and wheezing when he ambulates, chills, and diarrhea. He denies any fever. Per daughter, the patient's legs are not typically this red. Source of History: patient Onset: today Position: leg (bilateral) Quality: other (edema) Timing: constant Associated Symptoms: + chills, + SOB (when he walking), + diarrhea, No fevers Note: The patient states that he has a wound on his left leg. He also complains of wheezing when he walks and leg redness. Review of Systems See HPI for pertinent positives & negatives. A total of 10 systems reviewed and were otherwise negative. Past Medical & Surgical Medical Problems: (1) Abnormal SPEP (2) Acute renal insufficiency (3) Amyloidosis (4) ARF (acute renal failure) (5) Frequent falls (6) Hypoalbuminemia (7) Pleural effusion (8) Proteinuria (9) Rib fracture (10) Syncope (11) Syncope and collapse Social History Problems: (1) Alcohol abuse Family History No pertinent family history Social History Smoking Status: Never Smoker Drug Use: none Marital Status: Housing Status: lives with family Occupation Status: retired Current/Historical Medications Scheduled Folic Acid (Folvite), 1 MG PO DAILY Furosemide (Lasix), 40 MG PO DAILY Levothyroxine Sodium (Levothyroxine Sodium), 100 MCG PO QAM Loratadine (Claritin), 10 MG PO QAM Simvastatin (Zocor), 20 MG PO QAM Allergies Coded Allergies: No Known Allergies (Unverified , 02/23/17) Physical Exam Vital Signs Date Time Temp Pulse Resp B/P (MAP) Pulse Ox O2 Delivery O2 Flow Rate FiO2 02/23/17 19:17 99 16 142/75 93 Room Air 02/23/17 16:46 36.6 96 18 124/74 91 Room Air Physical Exam GENERAL: Patient is in no acute distress. HEENT: No acute trauma, normocephalic atraumatic, mucous membranes moist, no nasal congestion, no scleral icterus. NECK: No stridor, no adenopathy, no meningismus, trachea is midline. LUNGS: Decreased breath sounds at the left base, crackles at the right base, no wheezing. HEART: 2/6 systolic murmur, RRR. ABDOMEN: Soft, nontender, bowel sounds positive, no hernias, no peritonitis. EXTREMITIES: No cyanosis, full range of motion of all the joints without pain or difficulty, no signs for acute trauma. Significant bilateral pedal edema that is worse on the left. There is an open blister to the left proximal leg with erythema and warmth to the left leg in the area around the open blister. NEUROLOGIC: Oriented x 3, no acute motor or sensory deficits, no focal weakness. SKIN: No rash, no jaundice, no diaphoresis. Medical Decision & Procedures ER Provider Diagnostic Interpretation: Radiology results as stated below per my review and radiologist interpretation: CHEST ONE VIEW PORTABLE FINDINGS: Atherosclerosis of aortic arch. Cardiac silhouette enlarged though the left heart border is observed. Slight interval decrease in the moderate to large left pleural effusion. Left mid to basilar opacity persists. Increased right basilar opacity and small right pleural effusion. Osseous structures normal. IMPRESSION: 1. Increasing right basilar consolidation and right pleural effusion. 2. Slight interval decrease in left mid to basilar consolidation and left pleural effusion. 3. These findings likely relate to underlying pulmonary edema in the setting of cardiomegaly. Electronically signed by: Sanju Hernandez M.D. 02/23/2017 5:30 PM VENOUS DOPPLER LWR EXT BILA FINDINGS: Right: Common femoral vein: Patent. Greater saphenous vein: Patent. Deep femoral vein: Patent. Femoral vein: Patent. Popliteal vein: Patent. Calf veins: Limited visualization secondary to subcutaneous edema. Left: Common femoral vein: Patent. Previously noted abnormality is now apparent. Greater saphenous vein: Patent. Deep femoral vein: Patent. Femoral vein: Patent. Popliteal vein: Patent. Calf veins: Limited visualization secondary to subcutaneous edema. Other: Significant lower extremity edema. IMPRESSION: No evidence of deep venous thrombosis. Electronically signed by: Sanju Hernandez M.D. 02/23/2017 5:48 PM Laboratory Results 02/23/17 17:12 Red Blood Count 2.70, Mean Corpuscular Volume 100.7, Mean Corpuscular Hemoglobin 33.0, Mean Corpuscular Hemoglobin Concent 32.7, Mean Platelet Volume 10.0, Neutrophils (%) (Auto) 71.3, Lymphocytes (%) (Auto) 8.4, Monocytes (%) ( Auto) 17.1, Eosinophils (%) (Auto) 1.8, Basophils (%) (Auto) 1.2, Neutrophils # (Auto) 3.58, Lymphocytes # (Auto) 0.42, Monocytes # (Auto) 0.86, Eosinophils # ( Auto) 0.09, Basophils # (Auto) 0.06 02/23/17 17:12 Test 02/23/17 17:12 02/23/17 18:40 White Blood Count 5.02 K/uL (4.8-10.8) Red Blood Count 2.70 M/uL (4.7-6.1) Hemoglobin 8.9 g/dL (14.0-18.0) Hematocrit 27.2 % (42-52) Mean Corpuscular Volume 100.7 fL (80-100) Mean Corpuscular Hemoglobin 33.0 pg (25-34) Mean Corpuscular Hemoglobin Concent 32.7 g/dl (32-36) Platelet Count 364 K/uL (130-400) Mean Platelet Volume 10.0 fL (7.4-10.4) Neutrophils (%) (Auto) 71.3 % Lymphocytes (%) (Auto) 8.4 % Monocytes (%) (Auto) 17.1 % Eosinophils (%) (Auto) 1.8 % Basophils (%) (Auto) 1.2 % Neutrophils # (Auto) 3.58 K/uL (1.4-6.5) Lymphocytes # (Auto) 0.42 K/uL (1.2-3.4) Monocytes # (Auto) 0.86 K/uL (0.11-0.59) Eosinophils # (Auto) 0.09 K/uL (0-0.5) Basophils # (Auto) 0.06 K/uL (0-0.2) RDW Standard Deviation 55.8 fL (36.4-46.3) RDW Coefficient of Variation 15.4 % (11.5-14.5) Immature Granulocyte % (Auto) 0.2 % Immature Granulocyte # (Auto) 0.01 K/uL (0.00-0.02) Large Platelets 1+ Macrocytosis PRESENT Prothrombin Time 9.8 SECONDS (9.0-12.0) Prothromb Time International Ratio 0.9 (0.9-1.1) Activated Partial Thromboplast Time 27.8 SECONDS (21.0-31.0) Partial Thromboplastin Ratio 1.1 Anion Gap 8.0 mmol/L (3-11) Est Creatinine Clear Calc Drug Dose 28.2 ml/min Estimated GFR () 30.4 Estimated GFR (Non- 26.2 BUN/Creatinine Ratio 10.6 (10-20) Calcium Level 7.6 mg/dl (8.5-10.1) Magnesium Level 2.5 mg/dl (1.8-2.4) Total Bilirubin 0.2 mg/dl (0.2-1) Aspartate Amino Transf (AST/SGOT) 22 U/L (15-37) Alanine Aminotransferase (ALT/SGPT) 16 U/L (12-78) Alkaline Phosphatase 62 U/L (45-117) Troponin I 0.178 ng/ml (0-0.045) Pro-B-Type Natriuretic Peptide 93151 pg/ml (0-900) Total Protein 5.0 gm/dl (6.4-8.2) Albumin 1.7 gm/dl (3.4-5.0) Globulin 3.3 gm/dl (2.5-4.0) Albumin/Globulin Ratio 0.5 (0.9-2) Thyroid Stimulating Hormone (TSH) 11.900 uIu/ml (0.300-4.500) Free Thyroxine 1.03 ng/dl (0.80-1.60) Urine Color YELLOW Urine Appearance CLEAR (CLEAR) Urine pH 5.0 (4.5-7.5) Urine Specific [facility] 1.018 (1.000-1.030) Urine Protein 3+ (NEG) Urine Glucose (UA) NEG (NEG) Urine Ketones NEG (NEG) Urine Occult Blood 2+ (NEG) Urine Nitrite NEG (NEG) Urine Bilirubin NEG (NEG) Urine Urobilinogen NEG (NEG) Urine Leukocyte Esterase NEG (NEG) Urine WBC (Auto) 1-5 /hpf (0-5) Urine RBC (Auto) 0-4 /hpf (0-4) Urine Hyaline Casts (Auto) 10-30 /lpf (0-5) Urine Epithelial Cells (Auto) 20-30 /lpf (0-5) Urine Bacteria (Auto) NEG (NEG) Urine Yeast (Auto) (NONE PRSENT) Laboratory results reviewed by me. Medications Administered Medications (Trade) Dose Ordered Sig/Sylvester Route Start Time Stop Time Status Last Admin Dose Admin Bumetanide (Bumex Iv) 1 mg NOW STAT IV 02/23/17 17:57 02/23/17 17:59 DC 02/23/17 18:10 1 MG Cefepime HCl 2000 mg/Dextrose 112.5 ml @ 200 mls/hr ONE STAT IV 02/23/17 17:57 02/23/17 18:30 DC 02/23/17 18:37 200 MLS/HR ECG Indication: weakness Rate (beats per minute): 90 Rhythm: sinus rhythm Findings: 1st degree AV block, no ectopy, other (Old septal infarct, nonspecific ST change) ED Course 1653: The patient was evaluated in room A3. A complete history and physical exam was performed. 1757: Cefepime HCl 2000 mg/Dextrose 112.5ml @ 200mls/hr IV, Bumetanide 1mg IV 1834: I reevaluated and updated the patient. I spoke to him about admittance. He states that he does not want to be admitted, but will talk to his family. 1940: Upon reexamination the patient is stable. I discussed results and treatment plan with the patient. He verbalizes agreement and understanding. I spoke with Dr. Cochran - Hospitalist, [facility]. We discussed the patient's results and findings. The patient will be evaluated by Dr. Cochran for further management. Medical Decision Differential diagnoses include: cellulitis, acute renal failure, dehydration, anemia, electrolyte imbalance, medication reaction, fluid overload, and DVT. There is no leukocytosis. The patient is anemic-this is a drop for him and likely dilutional from his fluid overload. There was no evidence for significant electrolyte abnormality requiring correction. Renal insufficiency was seen but this is baseline. No hepatitis. BNP is quite elevated consistent with fluid overload. Chest film shows bilateral pleural effusions slightly worse on the right and slightly better on the left. No pneumonia seen. Bilateral lower extremity ultrasound does not show evidence for DVT. EKG shows a sinus rhythm, no acute ischemic change. Cardiac enzyme testing does show a troponin elevation-this is chronic though for the patient. Blood cultures are pending. Urinalysis does not show infection. The patient received IV cefepime for the left leg cellulitis. He received IV Bumex for the fluid overload. Given his edema, given the fluid overload, given the cellulitis and anemia, I did feel a hospital stay was warranted. I did speak to the patient and case management. The on-call hospitalist was consulted. Medication Reconcilliation Current Medication List: was personally reviewed by me Blood Pressure Screening Patient's blood pressure: Elevated blood pressure Blood pressure disposition: Elevated BP felt to be situational Consults Time Called: 1850 Consulting Physician: Dr. Cochran - Hospitalist, [facility] [place] Returned Call: 1940 Discussed the patient's case. The patient will be evaluated for further management. Impression Primary Impression: Fluid overload Additional Impressions: Pedal edema Bilateral pleural effusion Anemia Left leg cellulitis Scribe Attestation The scribe's documentation has been prepared under my direction and personally reviewed by me in its entirety. I confirm that the note above accurately reflects all work, treatment, procedures, and medical decision making performed by me. Departure Information Dispostion Being Evaluated By Hospitalist Referrals Steven Parry PA-C (PCP) Patient Instructions My [facility] Problem Qualifiers
[2017-02-23 17:24] LABS: BASO % 1.2 %; BASO ABS # 0.06 K/uL (0-0.2); EOS % 1.8 %; HEMATOCRIT 27.2 % (42-52); IG% 0.2 %; LYMPH % 8.4 %; LYMPH ABS # 0.42 K/uL (1.2-3.4); MEAN CELL VOLUME 100.7 fL (80-100); MEAN CORPUSCULAR HGB CONC 32.7 g/dl (32-36); MONO % 17.1 %; NEUT % 71.3 %; PLATELET COUNT 364 K/uL (130-400); WHITE BLOOD COUNT 5.02 K/uL (4.8-10.8)
--- NOTE | 2017-02-23 17:32 | DIAGNOSTIC IMAGING REPORT ---
CHEST ONE VIEW PORTABLE CLINICAL HISTORY: 76 years-old Male presenting with EVALUATE RESPIRATORY DISTRESS.DYSPNEA. TECHNIQUE: Portable upright AP view of the chest was obtained. COMPARISON: 01/20/2017. FINDINGS: Atherosclerosis of aortic arch. Cardiac silhouette enlarged though the left heart border is observed. Slight interval decrease in the moderate to large left pleural effusion. Left mid to basilar opacity persists. Increased right basilar opacity and small right pleural effusion. Osseous structures normal. IMPRESSION: 1. Increasing right basilar consolidation and right pleural effusion. 2. Slight interval decrease in left mid to basilar consolidation and left pleural effusion. 3. These findings likely relate to underlying pulmonary edema in the setting of cardiomegaly. Electronically signed by: Sanju Hernandez M.D. 02/23/2017 5:30 PM Dictated Date/Time: 02/23/2017 5:29 PM
[2017-02-23 17:33] LABS: INR 0.9 (0.9-1.1); PARTIAL THROMBOPLASTIN RATIO 1.1; PROTHROMBIN TIME (PATIENT) 9.8 SECONDS (9.0-12.0)
[2017-02-23 17:47] LABS: BUN/CREATININE RATIO 10.6 (10-20); CALCIUM 7.6 mg/dl (8.5-10.1); CREATININE 2.34 mg/dl (0.60-1.40); MAGNESIUM 2.5 mg/dl (1.8-2.4); POTASSIUM 4.4 mmol/L (3.5-5.1)
[2017-02-23 17:48] LABS: COMPLETE YES; LARGE PLATELETS 1+
--- NOTE | 2017-02-23 17:49 | DIAGNOSTIC IMAGING REPORT ---
VENOUS DOPPLER LWR EXT BILA CLINICAL HISTORY: 76 years-old Male presenting with edema. TECHNIQUE: Real-time grayscale and color and spectral Doppler ultrasound imaging of the veins of the bilateral lower extremities was performed. Compression and augmentation were also utilized. COMPARISON: 12/19/2016. FINDINGS: Right: Common femoral vein: Patent. Greater saphenous vein: Patent. Deep femoral vein: Patent. Femoral vein: Patent. Popliteal vein: Patent. Calf veins: Limited visualization secondary to subcutaneous edema. Left: Common femoral vein: Patent. Previously noted abnormality is now apparent. Greater saphenous vein: Patent. Deep femoral vein: Patent. Femoral vein: Patent. Popliteal vein: Patent. Calf veins: Limited visualization secondary to subcutaneous edema. Other: Significant lower extremity edema. IMPRESSION: No evidence of deep venous thrombosis. Electronically signed by: Sanju Hernandez M.D. 02/23/2017 5:48 PM Dictated Date/Time: 02/23/2017 5:46 PM
[2017-02-23] MEDS ORDERED: CEFEPIME IV 2,000 MG in DEXTROSE 5% 100ML 100 ML IV STA (17:57)
[2017-02-23] MEDS ORDERED: BUMETANIDE SOLN 1 MG/4 ML VIAL IV STA (17:57)
[2017-02-23 18:17] LABS: ALB/GLOB RATIO 0.5 (0.9-2); THYROID STIMULATING HORMONE 11.9 uIu/ml (0.300-4.500)
[2017-02-23] MEDS ORDERED: FURO40TA3 PO (18:26)
[2017-02-23 18:57] LABS: URINE APPEARANCE CLEAR (CLEAR); URINE BILIRUBIN NEG (NEG); URINE COLOR YELLOW; URINE EPITHELIAL CELL AUTO 20-30 /lpf (0-5); URINE NITRITE NEG (NEG); URINE SPECIFIC GRAVITY 1.018 (1.000-1.030); UROBILINOGEN NEG (NEG); ZZUR CULT IF INDIC CLEAN CATCH YES
[2017-02-23 18:58] LABS: MANUAL MICROSCOPIC REQUIRED? NO; REVIEW REQ? YES
--- NOTE | 2017-02-23 19:56 | History and Physical ---
History & Physical Date & Time of Service: Feb 23, 2017 at 19:48 Chief Complaint: Edema, Legs, Open Wound Primary Care Physician: Steven Parry PA-C History of Present Illness Source: patient 76 y/o M Hx ETOH abuse, chronic hypoalbuminemia, anasarca, pleural effusions, hypothyroidism, CKD IV, amyloidosis. Recent adjustments have been made to his diuretic dosing in an attempt to balance treatment of anasarca with deteriorating renal function. His last Lasix dose is reported to have been 40mg daily and at one point was 80mg BID. Since reducing his dose, he has exhibited rapid worsening of lower extremity edema, which is essentially why his family had brought him to the hospital. It is also noted that he had a blister on his LLE which ruptured and he appears to be developing cellulitis of the surrounding skin. The pt himself is a poor historian and does not have any complaints presently. A CXR is consistent with pulmonary edema and effusions. Initial labs are notable for worsening anemia and elevated TSH. An elevated creatinine and elevated troponin are chronic and at baseline. The pt was recently diagnosed with amyloidosis in evaluating proteinuric renal disease and has had 3 cycles of chemotherapy with Cytoxan and an additional agent. 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 He does not currently smoke. Smoking Status: Former Smoker Drug Use: none Marital Status: Occupational Status: retired Multi-Drug Resistant Organisms History of MDRO: No Allergies Coded Allergies: No Known Allergies (Unverified , 02/23/17) Home Medications Scheduled Folic Acid (Folvite), 1 MG PO DAILY Furosemide (Lasix), 40 MG PO DAILY Levothyroxine Sodium (Levothyroxine Sodium), 100 MCG PO QAM Loratadine (Claritin), 10 MG PO QAM Simvastatin (Zocor), 20 MG PO QAM Review of Systems Constitutional: No fever, No chills, No sweats Eyes: No worsening of vision ENT: No hearing loss, No nasal symptoms Respiratory: No cough, No sputum, No wheezing Cardiovascular: No chest pain, No orthopnea, No PND Abdomen: No pain, No nausea, No vomiting Musculoskeletal: + problem reported, No joint pain Genitourinary - Male: No hematuria, No dysuria, No urinary frequency Neurologic: + weakness, No memory loss, No paralysis Psychiatric: No depression symptoms Endocrine: + fatigue Hematologic / Lymphatic: No abnormal bleeding/bruising Integumentary: + rash (Cellulitis developing - both LEs - ruptired blister on LLE) Physical Exam Vital Signs Date Time Temp Pulse Resp B/P (MAP) Pulse Ox O2 Delivery O2 Flow Rate FiO2 02/23/17 19:17 99 16 142/75 93 Room Air 02/23/17 16:46 36.6 96 18 124/74 91 Room Air General Appearance: WD/WN, no apparent distress Head: normocephalic Eyes: normal inspection ENT: normal ENT inspection, pharynx normal Neck: supple, no JVD Respiratory/Chest: chest non-tender, lungs clear, normal breath sounds Cardiovascular: regular rate, rhythm, no edema, no gallop Abdomen/GI: normal bowel sounds, non tender, soft Back: normal inspection Extremities/Musculoskelatal: + pedal edema (3+ B/L edema) Neurologic/Psych: meat cutter II-XII nml as tested, no motor/sensory deficits, alert, normal mood/affect Skin: + pallor, + pertinent finding (Cellulitis developing - both LEs - ruptired blister on LLE) Diagnostics Laboratory Results Results Past 24 Hours Test 02/23/17 17:12 02/23/17 18:40 Range/Units White Blood Count 5.02 4.8-10.8 K/uL Red Blood Count 2.70 4.7-6.1 M/uL Hemoglobin 8.9 14.0-18.0 g/dL Hematocrit 27.2 42-52 % Mean Corpuscular Volume 100.7 80-100 fL Mean Corpuscular Hemoglobin 33.0 25-34 pg Mean Corpuscular Hemoglobin Concent 32.7 32-36 g/dl Platelet Count 364 130-400 K/uL Mean Platelet Volume 10.0 7.4-10.4 fL Neutrophils (%) (Auto) 71.3 % Lymphocytes (%) (Auto) 8.4 % Monocytes (%) (Auto) 17.1 % Eosinophils (%) (Auto) 1.8 % Basophils (%) (Auto) 1.2 % Neutrophils # (Auto) 3.58 1.4-6.5 K/uL Lymphocytes # (Auto) 0.42 1.2-3.4 K/uL Monocytes # (Auto) 0.86 0.11-0.59 K/uL Eosinophils # (Auto) 0.09 0-0.5 K/uL Basophils # (Auto) 0.06 0-0.2 K/uL RDW Standard Deviation 55.8 36.4-46.3 fL RDW Coefficient of Variation 15.4 11.5-14.5 % Immature Granulocyte % (Auto) 0.2 % Immature Granulocyte # (Auto) 0.01 0.00-0.02 K/uL Large Platelets 1+ Macrocytosis PRESENT Prothrombin Time 9.8 9.0-12.0 SECONDS Prothromb Time International Ratio 0.9 0.9-1.1 Activated Partial Thromboplast Time 27.8 21.0-31.0 SECONDS Partial Thromboplastin Ratio 1.1 Sodium Level 139 136-145 mmol/L Potassium Level 4.4 3.5-5.1 mmol/L Chloride Level 111 98-107 mmol/L Carbon Dioxide Level 21 21-32 mmol/L Anion Gap 8.0 3-11 mmol/L Blood Urea Nitrogen 25 7-18 mg/dl Creatinine 2.34 0.60-1.40 mg/dl Est Creatinine Clear Calc Drug Dose 28.2 ml/min Estimated GFR () 30.4 Estimated GFR (Non- 26.2 BUN/Creatinine Ratio 10.6 10-20 Random Glucose 85 70-99 mg/dl Calcium Level 7.6 8.5-10.1 mg/dl Magnesium Level 2.5 1.8-2.4 mg/dl Total Bilirubin 0.2 0.2-1 mg/dl Aspartate Amino Transf (AST/SGOT) 22 15-37 U/L Alanine Aminotransferase (ALT/SGPT) 16 12-78 U/L Alkaline Phosphatase 62 45-117 U/L Troponin I 0.178 0-0.045 ng/ml Pro-B-Type Natriuretic Peptide 12707 0-900 pg/ml Total Protein 5.0 6.4-8.2 gm/dl Albumin 1.7 3.4-5.0 gm/dl Globulin 3.3 2.5-4.0 gm/dl Albumin/Globulin Ratio 0.5 0.9-2 Thyroid Stimulating Hormone (TSH) 11.900 0.300-4.500 uIu/ml Free Thyroxine 1.03 0.80-1.60 ng/dl Urine Color YELLOW Urine Appearance CLEAR CLEAR Urine pH 5.0 4.5-7.5 Urine Specific [place] 1.018 1.000-1.030 Urine Protein 3+ NEG Urine Glucose (UA) NEG NEG Urine Ketones NEG NEG Urine Occult Blood 2+ NEG Urine Nitrite NEG NEG Urine Bilirubin NEG NEG Urine Urobilinogen NEG NEG Urine Leukocyte Esterase NEG NEG Urine WBC (Auto) 1-5 0-5 /hpf Urine RBC (Auto) 0-4 0-4 /hpf Urine Hyaline Casts (Auto) 10-30 0-5 /lpf Urine Epithelial Cells (Auto) 20-30 0-5 /lpf Urine Bacteria (Auto) NEG NEG Urine Yeast (Auto) NONE PRSENT Microbiology Results 02/23/17 Blood Culture, Received Pending 02/23/17 Blood Culture, Received Pending 02/23/17 Urine Culture, Received Pending Diagnostic Radiology CXR is consistent with plulmonary edema and pleural effusions EKG Sinus, 1st degree AV, low voltage - no significant change Impression Assessment and Plan 76 y/o M Hx ETOH abuse, chronic hypoalbuminemia, anasarca, pleural effusions, hypothyroidism, CKD IV. Recent adjustments have been made to his diuretic dosing in an attempt to balance treatment of anasarca with deteriorating renal function. His last Lasix dose is reported to have been 40mg daily and at one point was 80mg BID. Since reducing his dose, he has exhibited rapid worsening of lower extremity edema, which is essentially why his family had brought him to the hospital. It is also noted that he had a blister on his LLE which ruptured and he appears to be developing cellulitis of the surrounding skin. The pt himself is a poor historian and does not have any complaints presently. A CXR is consistent with pulmonary edema and effusions. Initial labs are notable for worsening anemia and elevated TSH. An elevated creatinine and elevated troponin are chronic and at baseline. 1) Worsening LE edema - pt placed on TID Bumex to gauge response - BMP will be trended - we will need to watch for low K and worsening renal function. Unfortunately, there may not be an optimal dose as we are not treating the underlying cause of his edema with diuretics. 2) Cellulitis - area delineated - will start Ceftriaxone. 3) CKD - due to proteinuria - trend renal function with additional diuretic use - we my opt to consult nephrology with any worsening or lack of improvement. 4) Hypothyroidism - T3,4 pending - Levothyroxine increased to 125 as TSH has been slowly rising - can f/u as oupt 5) Amyloidosis - due for chemo AM which should be delayed in light of acute infection - clinic should be contacted AM. 6) Worsening anemia - no evidence of acute bleed - may be chemo effect - will trend Hb for now Full code - Heparin prophylaxis Total time for this admit including review of labs, meds, imaging - discussion with pt, family, ER attending - 40 min Level of Care Med/Surg Resuscitation Status FULL RESUSCITATION VTE Prophylaxis Given or contraindicated: Unfractionated heparin SQ
[2017-02-23] MEDS ORDERED: TRAMADOL HCL 50 MG TAB PO PRN (20:15)
[2017-02-23] MEDS ORDERED: ACETAMINOPHEN 325 MG TAB PO PRN (20:15)
[2017-02-23] MEDS ORDERED: MAGNESIUM HYDROXIDE SUSP 30 ML UDC PO PRN (20:15)
[2017-02-23] MEDS ORDERED: POLYETHYLENE (MIRALAX) 17 GM PACK PO PRN (20:15)
[2017-02-23] MEDS ORDERED: ALUMINUM/MAGNESIUM/SIMETH (MAALOX MAX) 30 ML UDC PO PRN (20:15)
[2017-02-23] MEDS ORDERED: ONDANSETRON INJ 2 MG/ML 2 ML VIAL IV PRN (20:15)
[2017-02-23] MEDS ORDERED: IV FLUIDS COMPLETED PRN (20:30)
[2017-02-23 21:34] VITALS: BP 145/83; PULSE 101; TEMP 36.6; O2SAT 92; Ht 180.3 cm; Wt 75.0 kg
[2017-02-23] MEDS: HEPARIN SOD 5000 UNIT/0.5 ML CARP SQ SCH (22:21)
[2017-02-23 23:36] VITALS: BP 138/78; PULSE 94; TEMP 36.5; O2SAT 92
[2017-02-24] MEDS: CEFTRIAXONE SOD INJ 1 GM in DEXTROSE 5% ADD-VANTAGE 50ML 50 ML IV SCH (06:06)
[2017-02-24] MEDS: BUMETANIDE IV 2 MG in SYRINGE 0 ML IV SCH ×3 (06:06→20:38)
[2017-02-24] MEDS: LEVOTHYROXINE 125 MCG TAB PO SCH (06:07)
[2017-02-24 07:25] VITALS: BP 119/72; PULSE 87; TEMP 37; O2SAT 93
[2017-02-24] MEDS ORDERED: BUMETANIDE SOLN 1 MG/4 ML VIAL IV SCH (08:00)
[2017-02-24 08:15] LABS: BUN/CREATININE RATIO 11.7 (10-20); CALCIUM 7.8 mg/dl (8.5-10.1); CREATININE 2.2 mg/dl (0.60-1.40); MAGNESIUM 2.4 mg/dl (1.8-2.4); POTASSIUM 4.2 mmol/L (3.5-5.1)
[2017-02-24] MEDS: SIMVASTATIN 20 MG TAB PO SCH (08:21)
[2017-02-24] MEDS: LORATADINE 10 MG TAB PO SCH (08:22)
[2017-02-24] MEDS: HEPARIN SOD 5000 UNIT/0.5 ML CARP SQ SCH ×2 (08:24→20:39)
[2017-02-24 15:24] VITALS: BP 109/63; PULSE 88; TEMP 37.1; O2SAT 93
[2017-02-24 16:00] VITALS: O2SAT 93
--- NOTE | 2017-02-24 16:07 | Hospitalist Progress Note ---
Hospitalist Progress Note Date of Service Feb 24, 2017. (Holley Almanza, PATereseC) Subjective Pt evaluation today including: conversation w/ patient, physical exam, chart review, lab review, review of studies, conversation w/ fashion consultant (Heme/Onc - Dr. Whitaker's office), review of inpatient medication list Patient seen and evaluated. No acute events overnight. Feels that he is noticing improvement with swelling and redness. Tolerating food without issue. States some chemo has been held as he got really sick on it before. Will discuss with Dr. Whitaker. He states he does not have SOB with rest but does not VARGAS that is chronic. Has had thoracentesis in the past by Dr. Melgar. Verbalizes no complaints at this time. Constitutional: No fever, No chills Respiratory: + dyspnea on exertion, No cough, No dyspnea at rest Cardiovascular: No chest pain Abdomen: No pain, No nausea, No vomiting, No diarrhea, No constipation, No GI bleeding Musculoskeletal: + swelling (L>R in lower extremities with 3+ pitting edema) Heme: No abnormal bleeding/bruising Skin: + problem reported (erythema of b/l lower extremities) (Holley Almanza, PA-C) Medications Current Inpatient Medications Medications (Trade) Dose Ordered Sig/Sylvester Route Start Time Stop Time Status Last Admin Dose Admin Folic Acid (Folvite Tab) 1 mg DAILY PO 02/24/17 08:00 03/26/17 08:59 02/24/17 08:22 1 MG Levothyroxine Sodium (Synthroid Tab) 125 mcg DAILYBB PO 02/24/17 06:30 03/26/17 06:59 02/24/17 06:07 125 MCG Loratadine (Claritin Tab) 10 mg QAM PO 02/24/17 08:00 03/26/17 08:59 02/24/17 08:22 10 MG Simvastatin (Zocor Tab) 20 mg QAM PO 02/24/17 08:00 03/26/17 08:59 02/24/17 08:21 20 MG Acetaminophen (Tylenol Tab) 650 mg Q4H PRN PO 02/23/17 20:15 03/25/17 20:14 Al Hydrox/Mg Hydrox/Simethicone (Maalox Max Susp) 15 ml Q4H PRN PO 02/23/17 20:15 03/25/17 20:14 Magnesium Hydroxide (Milk Of Magnesia Susp) 30 ml Q6H PRN PO 02/23/17 20:15 03/25/17 20:14 Polyethylene (Miralax Powder Packet) 17 gm DAILY PRN PO 02/23/17 20:15 03/25/17 20:14 Ondansetron HCl (Zofran Inj) 4 mg Q6H PRN IV 02/23/17 20:15 03/25/17 20:14 Heparin Sodium (Porcine) (Heparin Sq 5000 Unit/0.5ml) 5,000 unit Q12 SQ 02/23/17 21:00 03/25/17 20:59 02/24/17 08:24 5,000 UNIT Tramadol HCl (Ultram Tab) 50 mg Q4H PRN PO 02/23/17 20:15 03/25/17 20:14 Miscellaneous (Iv Fluids Completed) 1 ea PRN PRN N/A 02/23/17 20:30 02/23/18 20:29 Ceftriaxone Sodium 1 gm/ Dextrose 50 ml @ 100 mls/hr Q24H IV 02/24/17 06:00 03/06/17 05:59 02/24/17 06:06 100 MLS/HR Bumetanide 2 mg/ Syringe 8 ml @ 4 mls/min Q8H IV 02/24/17 06:00 03/26/17 05:59 02/24/17 13:23 4 MLS/MIN (Holley Almanza, SAMM) Objective Vital Signs Date Time Temp Pulse Resp B/P (MAP) Pulse Ox O2 Delivery O2 Flow Rate FiO2 02/24/17 15:24 37.1 88 18 109/63 (78) 93 Room Air 02/24/17 08:00 Nasal Cannula 2.0 02/24/17 07:25 37.0 87 20 119/72 (88) 93 Nasal Cannula 2.0 02/24/17 00:00 Room Air 02/23/17 23:36 36.5 94 18 138/78 (98) 92 Room Air 02/23/17 21:34 36.6 101 18 145/83 92 Room Air 02/23/17 20:53 99 16 142/75 93 02/23/17 19:17 99 16 142/75 93 Room Air 02/23/17 16:46 36.6 96 18 124/74 91 Room Air (Holley Almanza PA-C) Physical Exam General Appearance: WD/WN, no apparent distress Eyes: sclerae normal ENT: hearing grossly normal Neck: supple, no JVD, trachea midline Respiratory/Chest: lungs clear, normal breath sounds, no respiratory distress, no accessory muscle use Cardiovascular: regular rate, rhythm, no gallop, no murmur Abdomen: normal bowel sounds, non tender, soft Extremities: + swelling (L>R 3+ pitting edema), + pertinent finding (b/l erythema with R improving more than L - area delineated) Neurologic/Psychiatric: alert, oriented x 3 (Holley Almanza PA-C) Laboratory Results Last 24 Hours Test 02/23/17 17:12 02/23/17 18:40 02/24/17 07:03 White Blood Count 5.02 K/uL Red Blood Count 2.70 M/uL Hemoglobin 8.9 g/dL 8.9 g/dL Hematocrit 27.2 % Mean Corpuscular Volume 100.7 fL Mean Corpuscular Hemoglobin 33.0 pg Mean Corpuscular Hemoglobin Concent 32.7 g/dl Platelet Count 364 K/uL Mean Platelet Volume 10.0 fL Neutrophils (%) (Auto) 71.3 % Lymphocytes (%) (Auto) 8.4 % Monocytes (%) (Auto) 17.1 % Eosinophils (%) (Auto) 1.8 % Basophils (%) (Auto) 1.2 % Neutrophils # (Auto) 3.58 K/uL Lymphocytes # (Auto) 0.42 K/uL Monocytes # (Auto) 0.86 K/uL Eosinophils # (Auto) 0.09 K/uL Basophils # (Auto) 0.06 K/uL RDW Standard Deviation 55.8 fL RDW Coefficient of Variation 15.4 % Immature Granulocyte % (Auto) 0.2 % Immature Granulocyte # (Auto) 0.01 K/uL Large Platelets 1+ Macrocytosis PRESENT Prothrombin Time 9.8 SECONDS Prothromb Time International Ratio 0.9 Activated Partial Thromboplast Time 27.8 SECONDS Partial Thromboplastin Ratio 1.1 Sodium Level 139 mmol/L 140 mmol/L Potassium Level 4.4 mmol/L 4.2 mmol/L Chloride Level 111 mmol/L 111 mmol/L Carbon Dioxide Level 21 mmol/L 21 mmol/L Anion Gap 8.0 mmol/L 8.0 mmol/L Blood Urea Nitrogen 25 mg/dl 26 mg/dl Creatinine 2.34 mg/dl 2.20 mg/dl Est Creatinine Clear Calc Drug Dose 28.2 ml/min 30.8 ml/min Estimated GFR () 30.4 32.7 Estimated GFR (Non- 26.2 28.3 BUN/Creatinine Ratio 10.6 11.7 Random Glucose 85 mg/dl 86 mg/dl Calcium Level 7.6 mg/dl 7.8 mg/dl Magnesium Level 2.5 mg/dl 2.4 mg/dl Total Bilirubin 0.2 mg/dl Aspartate Amino Transf (AST/SGOT) 22 U/L Alanine Aminotransferase (ALT/SGPT) 16 U/L Alkaline Phosphatase 62 U/L Troponin I 0.178 ng/ml Pro-B-Type Natriuretic Peptide 83280 pg/ml Total Protein 5.0 gm/dl Albumin 1.7 gm/dl Globulin 3.3 gm/dl Albumin/Globulin Ratio 0.5 Thyroid Stimulating Hormone (TSH) 11.900 uIu/ml Free Thyroxine 1.03 ng/dl Urine Color YELLOW Urine Appearance CLEAR Urine pH 5.0 Urine Specific [place] 1.018 Urine Protein 3+ Urine Glucose (UA) NEG Urine Ketones NEG Urine Occult Blood 2+ Urine Nitrite NEG Urine Bilirubin NEG Urine Urobilinogen NEG Urine Leukocyte Esterase NEG Urine WBC (Auto) 1-5 /hpf Urine RBC (Auto) 0-4 /hpf Urine Hyaline Casts (Auto) 10-30 /lpf Urine Epithelial Cells (Auto) 20-30 /lpf Urine Bacteria (Auto) NEG Urine Yeast (Auto) Phosphorus Level 4.0 mg/dl (Holley Almanza, PA-C) Assessment and Plan Mr. Sullivan is a 76 y/o male with PMHx of ETOH abuse, Chronic Hypoalbuminemia, Anasarca, Recurrent Pleural Effusions, Hypothyroidism, and CKD Stage IV who presnts with worsening edema and possible cellulitis Bilateral Lower Extremity Cellulitis: - Patient reporting improvement in redness and swelling but LLE still significantly erythematous; RLE does look to be improving - cellulitis marked - Ceftriaxone 1 g IV daily - Wound care following for open wound with dressing applied Worsensing LE Edema with Anasarca: - Reports worsening with recent reduction in Lasix to 40 mg daily - Will continue Bumex 2 mg IV Q8H - will recheck BMP to assess impact on kidney function Nephrotic Syndrome with CKD Stage IV: Proteinuria - Cr at Baseline - Consult nephrology - appreciate recommendations with diuretics and maintaining kidney function Hypothyroidism: - T4 is WNL - could continue increased Levothyroxine at 125 mcg and repeat testing in 6 weeks Worsening Anemia: - No evidence of bleeding - likely from chemotherapy - continue to monitor Amyloidosis: - Patient follows with Dr. Whitaker - call out to the office awaiting return call - Will discuss need to continue chemo at this time - patient states he wasn't doing well after some treatments and some have been held - likely will continue to hold during acute illness ETOH Abuse: - Denies recent ETOH intake due to generalized illness - no signs of withdrawal - will continue to monitor DVT Prophylaxis: Heparin Q12H Code Status: FULL RESUSCITATION Disposition: Awaiting clinical improvement in legs and possible D/C next 1-2 days Continued [facility] stay due to: multiple IV medications needed Discharge planning: home (Holley Almanza, PA-C) Supervising Note Dr. Workman I examined patient and discussed my plan with APC and patient. My exam is below: General Appearance: WD/WN, no apparent distress ENT: hearing grossly normal Neck: supple, no JVD, trachea midline Respiratory/Chest: lungs clear, normal breath sounds, no respiratory distress, no accessory muscle use Cardiovascular: regular rate, rhythm, no gallop, no murmur Abdomen: normal bowel sounds, non tender, soft Extremities: + swelling (L>R 3+ pitting edema), Left appears to have increased erythema and swelling, and it is very tender to palpation. Area delineated. Neurologic/Psychiatric: alert, oriented x 3 (Robb Workman M.D.)
[2017-02-24 17:15] LABS: CREATININE 2.39 mg/dl (0.60-1.40)
[2017-02-24 17:16] LABS: BUN/CREATININE RATIO 10.8 (10-20); CALCIUM 7.7 mg/dl (8.5-10.1); POTASSIUM 4.4 mmol/L (3.5-5.1)
--- NOTE | 2017-02-24 18:17 | Nephrology Consultation ---
Nephrology Consultation Date & Providers Date of Consultation: Feb 24, 2017. Primary Care Provider: Steven Parry PA-C Referring Provider: History of Present Illness Mr. Steven Sullivan is a 76-year-old male who was seen and evaluated this morning chronic kidney disease and edema. The patient was admitted to [facility] for management of progressive debilitating edema in his legs. I first met Steven when he was admitted in December 2016. At that time, he presented with a fall. He was undergoing evaluation for nephrotic range proteinuria. Evaluation was notable for a monoclonal abnormality in the serum and urine. Bone marrow biopsy demonstrated AL amyloidosis. Kidney biopsy was deferred. Creatinine has been stable around 2.2 mg/dL. Treatment was started with cyclophosphamide, Velcade and Decadron. Unfortunately, Steven has been suffering with progressive lower extremity edema. He has some chronic dyspnea with exertion and significantly limited activity tolerance. Appetite is reported as poor. Steven was recently evaluated by Dr. Wilson in the nephrology clinic in January. Furosemide was decreased to 20 mg daily. He notes increased fluid retention following the dose adjustment. In December, TTE showed normal LV size with hyperdynamic function with concentric LVH and normal diastolic function. There is mild to moderate aortic stenosis but no other significant valvular heart disease. Steven has been admitted and started on IV diuretics. Wound care consultation was obtained to assist with associated changes in his legs. He has chronic orthopnea. He denied fevers or chills. He has chronic lower extremity and abdominal edema. Medical history is notable for chronic alcohol abuse as well as a significant smoking history. Steven has hypothyroidism. He has had more than one syncopal events in the past. 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 Chronic anemia Surgical: Thoracentesis, bone marrow biopsy Allergies Coded Allergies: No Known Allergies (Unverified , 02/23/17) Inpatient Medications Current Inpatient Medications Medications (Trade) Dose Ordered Sig/Sylvester Route Start Time Stop Time Status Last Admin Dose Admin Folic Acid (Folvite Tab) 1 mg DAILY PO 02/24/17 08:00 03/26/17 08:59 02/24/17 08:22 1 MG Levothyroxine Sodium (Synthroid Tab) 125 mcg DAILYBB PO 02/24/17 06:30 03/26/17 06:59 02/24/17 06:07 125 MCG Loratadine (Claritin Tab) 10 mg QAM PO 02/24/17 08:00 03/26/17 08:59 02/24/17 08:22 10 MG Simvastatin (Zocor Tab) 20 mg QAM PO 02/24/17 08:00 03/26/17 08:59 02/24/17 08:21 20 MG Acetaminophen (Tylenol Tab) 650 mg Q4H PRN PO 02/23/17 20:15 03/25/17 20:14 Al Hydrox/Mg Hydrox/Simethicone (Maalox Max Susp) 15 ml Q4H PRN PO 02/23/17 20:15 03/25/17 20:14 Magnesium Hydroxide (Milk Of Magnesia Susp) 30 ml Q6H PRN PO 02/23/17 20:15 03/25/17 20:14 Polyethylene (Miralax Powder Packet) 17 gm DAILY PRN PO 02/23/17 20:15 03/25/17 20:14 Ondansetron HCl (Zofran Inj) 4 mg Q6H PRN IV 02/23/17 20:15 03/25/17 20:14 Heparin Sodium (Porcine) (Heparin Sq 5000 Unit/0.5ml) 5,000 unit Q12 SQ 02/23/17 21:00 03/25/17 20:59 02/24/17 08:24 5,000 UNIT Tramadol HCl (Ultram Tab) 50 mg Q4H PRN PO 02/23/17 20:15 03/25/17 20:14 Miscellaneous (Iv Fluids Completed) 1 ea PRN PRN N/A 02/23/17 20:30 02/23/18 20:29 Ceftriaxone Sodium 1 gm/ Dextrose 50 ml @ 100 mls/hr Q24H IV 02/24/17 06:00 03/06/17 05:59 02/24/17 06:06 100 MLS/HR Bumetanide 2 mg/ Syringe 8 ml @ 4 mls/min Q8H IV 02/24/17 06:00 03/26/17 05:59 02/24/17 13:23 4 MLS/MIN Family History No pertinent family history Social History Smoking Status: Former Smoker Drug Use: none Marital Status: Occupation: retired Review of Systems A complete review of systems was performed. Pertinent positives are noted above. All other systems are negative. Physical Exam Date Time Temp Pulse Resp B/P (MAP) Pulse Ox O2 Delivery O2 Flow Rate FiO2 02/24/17 15:24 37.1 88 18 109/63 (78) 93 Room Air 02/24/17 08:00 Nasal Cannula 2.0 02/24/17 07:25 37.0 87 20 119/72 (88) 93 Nasal Cannula 2.0 02/24/17 00:00 Room Air 02/23/17 23:36 36.5 94 18 138/78 (98) 92 Room Air 02/23/17 21:34 36.6 101 18 145/83 92 Room Air 02/23/17 20:53 99 16 142/75 93 02/23/17 19:17 99 16 142/75 93 Room Air General Appearance: no apparent distress, + thin Head: normocephalic, atraumatic Eyes: normal inspection, sclerae normal ENT: normal ENT inspection, pharynx normal Neck: supple, + JVD Respiratory/Chest: lungs clear, no respiratory distress, no accessory muscle use, + decreased breath sounds (bilateral bases) Cardiovascular: regular rate, rhythm, no gallop, no murmur Abdomen/GI: non tender, soft Extremities/Musculoskelatal: normal inspection, + pedal edema (+2 pitting to abdomen) Neurologic/Psych: alert, normal mood/affect Skin: normal color Laboratory Results Last 24 Hours Test 02/23/17 18:40 02/24/17 07:03 02/24/17 16:28 Urine Color YELLOW Urine Appearance CLEAR Urine pH 5.0 Urine Specific [place] 1.018 Urine Protein 3+ Urine Glucose (UA) NEG Urine Ketones NEG Urine Occult Blood 2+ Urine Nitrite NEG Urine Bilirubin NEG Urine Urobilinogen NEG Urine Leukocyte Esterase NEG Urine WBC (Auto) 1-5 /hpf Urine RBC (Auto) 0-4 /hpf Urine Hyaline Casts (Auto) 10-30 /lpf Urine Epithelial Cells (Auto) 20-30 /lpf Urine Bacteria (Auto) NEG Urine Yeast (Auto) Hemoglobin 8.9 g/dL Sodium Level 140 mmol/L 141 mmol/L Potassium Level 4.2 mmol/L 4.4 mmol/L Chloride Level 111 mmol/L 112 mmol/L Carbon Dioxide Level 21 mmol/L 20 mmol/L Anion Gap 8.0 mmol/L 9.0 mmol/L Blood Urea Nitrogen 26 mg/dl 26 mg/dl Creatinine 2.20 mg/dl 2.39 mg/dl Est Creatinine Clear Calc Drug Dose 30.8 ml/min 28.3 ml/min Estimated GFR () 32.7 29.6 Estimated GFR (Non- 28.3 25.6 BUN/Creatinine Ratio 11.7 10.8 Random Glucose 86 mg/dl 92 mg/dl Calcium Level 7.8 mg/dl 7.7 mg/dl Phosphorus Level 4.0 mg/dl Magnesium Level 2.4 mg/dl Impression (1) CKD (chronic kidney disease), stage IV (2) Amyloidosis (3) Nephrosis (4) Anasarca associated with disorder of kidney Steven is a 76-year-old male with AL amyloidosis and nephrotic chronic kidney disease. He is hypoalbuminemic, anemic and proteinuric. Blood pressure is acceptable. Lower extremity edema is debilitating. He also has persistent transudative pleural effusions. Edema progressing despite oral diuretics for which he was admitted for IV diuretics with monitoring of renal function. He was started on treatment with cyclophosphamide, Velcade and Decadron but treatment held due to his current comorbid conditions and overall health status. Steven states that he has been suffering with his therapy. He did not early response in volume status with IV diuretics. Renal function stable and metabolic profile is appropriate. I will continue to follow during his admission. Recommendations -- Bumex 2 mg IV twice daily -- Feet elevated and manual lymphedema treatment encouraged -- Encourage nutrition -- Document I/O's -- Monitor metabolic profile daily -- Suggest treatment of anemia with hematology -- PT evaluation -- Local wound care to extremities
[2017-02-24 23:20] VITALS: BP 99/63; PULSE 90; TEMP 36.7; O2SAT 92
[2017-02-25] MEDS: LEVOTHYROXINE 125 MCG TAB PO SCH (05:54)
[2017-02-25] MEDS: CEFTRIAXONE SOD INJ 1 GM in DEXTROSE 5% ADD-VANTAGE 50ML 50 ML IV SCH (05:54)
[2017-02-25 07:33] VITALS: BP 114/66; PULSE 88; TEMP 36.4; O2SAT 90
[2017-02-25 07:33] LABS: BUN/CREATININE RATIO 10.5 (10-20); CALCIUM 7.4 mg/dl (8.5-10.1); CREATININE 2.36 mg/dl (0.60-1.40); POTASSIUM 3.8 mmol/L (3.5-5.1)
[2017-02-25] MEDS: BUMETANIDE IV 2 MG in SYRINGE 0 ML IV SCH (08:28)
[2017-02-25] MEDS: SIMVASTATIN 20 MG TAB PO SCH (08:28)
[2017-02-25] MEDS: LORATADINE 10 MG TAB PO SCH (08:28)
[2017-02-25] MEDS: HEPARIN SOD 5000 UNIT/0.5 ML CARP SQ SCH (08:37)
[2017-02-25 09:02] VITALS: O2SAT 93
--- NOTE | 2017-02-25 09:24 | Nephrology Progress Note ---
Nephrology Progress Note Date of Service Feb 25, 2017. Chief Complaint CKD, edema Subjective Steven is sitting comfortably in chair this morning. PT in to perform evaluation. Steven states that he feels much better. He denies any fevers or chills. Appetite is good. Edema is improving. He feels more comfortable on his feet. He is voiding urine without difficulty. No lightheadedness of dizziness. Review of Systems A complete review of systems was performed. Pertinent positives are noted above. All other systems are negative. Vital Signs Last 8 Hrs Date Time Temp Pulse Resp B/P (MAP) Pulse Ox O2 Delivery O2 Flow Rate FiO2 02/25/17 07:33 36.4 88 18 114/66 (82) 90 Last Recorded Weight Weight (Kilograms): 75.000 Physical Exam General Appearance: WD/WN, no apparent distress Head: normocephalic, atraumatic Eyes: normal inspection, sclerae normal ENT: normal ENT inspection, pharynx normal Neck: supple, thyroid normal Respiratory/Chest: lungs clear, no respiratory distress, no accessory muscle use Cardiovascular: regular rate, rhythm, no gallop Abdomen/GI: non tender, soft Extremities/Musculoskelatal: normal inspection, + pedal edema (improving diffuse pitting edema extending to abdomen) Neurologic/Psych: alert, normal mood/affect Family History No pertinent family history Social History Drug Use: none Marital Status: Occupation: retired Laboratory Results Past 24 Hours 02/24/17 16:28 02/25/17 06:43 Test 02/24/17 16:28 02/25/17 06:43 Anion Gap 9.0 mmol/L (3-11) 5.0 mmol/L (3-11) Est Creatinine Clear Calc Drug Dose 28.3 ml/min 28.7 ml/min Estimated GFR () 29.6 30.1 Estimated GFR (Non- 25.6 26.0 BUN/Creatinine Ratio 10.8 (10-20) 10.5 (10-20) Calcium Level 7.7 mg/dl (8.5-10.1) 7.4 mg/dl (8.5-10.1) Allergies Coded Allergies: No Known Allergies (Unverified , 02/23/17) Medications Current Inpatient Medications Medications (Trade) Dose Ordered Sig/Sylvester Route Start Time Stop Time Status Last Admin Dose Admin Folic Acid (Folvite Tab) 1 mg DAILY PO 02/24/17 08:00 03/26/17 08:59 02/25/17 08:28 1 MG Levothyroxine Sodium (Synthroid Tab) 125 mcg DAILYBB PO 02/24/17 06:30 03/26/17 06:59 02/25/17 05:54 125 MCG Loratadine (Claritin Tab) 10 mg QAM PO 02/24/17 08:00 03/26/17 08:59 02/25/17 08:28 10 MG Simvastatin (Zocor Tab) 20 mg QAM PO 02/24/17 08:00 03/26/17 08:59 02/25/17 08:28 20 MG Acetaminophen (Tylenol Tab) 650 mg Q4H PRN PO 02/23/17 20:15 03/25/17 20:14 02/24/17 18:23 650 MG Al Hydrox/Mg Hydrox/Simethicone (Maalox Max Susp) 15 ml Q4H PRN PO 02/23/17 20:15 03/25/17 20:14 Magnesium Hydroxide (Milk Of Magnesia Susp) 30 ml Q6H PRN PO 02/23/17 20:15 03/25/17 20:14 Polyethylene (Miralax Powder Packet) 17 gm DAILY PRN PO 02/23/17 20:15 03/25/17 20:14 Ondansetron HCl (Zofran Inj) 4 mg Q6H PRN IV 02/23/17 20:15 03/25/17 20:14 Heparin Sodium (Porcine) (Heparin Sq 5000 Unit/0.5ml) 5,000 unit Q12 SQ 02/23/17 21:00 03/25/17 20:59 02/25/17 08:37 5,000 UNIT Tramadol HCl (Ultram Tab) 50 mg Q4H PRN PO 02/23/17 20:15 03/25/17 20:14 Miscellaneous (Iv Fluids Completed) 1 ea PRN PRN N/A 02/23/17 20:30 02/23/18 20:29 Ceftriaxone Sodium 1 gm/ Dextrose 50 ml @ 100 mls/hr Q24H IV 02/24/17 06:00 03/06/17 05:59 02/25/17 05:54 100 MLS/HR Bumetanide 2 mg/ Syringe 8 ml @ 4 mls/min Q12H IV 02/24/17 21:00 03/26/17 20:59 02/25/17 08:28 4 MLS/MIN Impression (1) CKD (chronic kidney disease), stage IV (2) Amyloidosis (3) Nephrosis (4) Anasarca associated with disorder of kidney Steven is a 76-year-old male with AL amyloidosis and nephrotic chronic kidney disease IV. He is hypoalbuminemic, anemic and proteinuric. Blood pressure is acceptable. Lower extremity edema is debilitating. He also has persistent transudative pleural effusions. Edema progressing despite PO diuretics for which he was admitted for IV diuretics with monitoring of renal function. He is being treated for LE cellulitis with ceftriaxone He has been receiving treatment with cyclophosphamide, Velcade and Decadron but treatment held due to his current comorbid conditions and overall health status. Early response in volume status with IV diuretics. Renal function stable and metabolic profile is appropriate. Will try switching to PO Bumex today. Recommendations -- Bumex 2 mg PO twice daily -- Document I/O -- Feet elevated and manual lymphedema treatment encouraged -- Encourage nutrition -- Monitor metabolic profile daily -- Suggest treatment of anemia per hematology -- Local wound care to extremities -- PT evaluation pending -- Medications appropriately dosed for renal function
[2017-02-25] MEDS ORDERED: CEPH-571 PO (13:20)
[2017-02-25] MEDS ORDERED: BMX1 PO ×2 (13:20→13:27)
[2017-02-25] MEDS ORDERED: LEVO125T5 PO (13:20)
--- NOTE | 2017-02-25 13:31 | Discharge Instructions ---
Discharge Instructions Date of Service Feb 25, 2017. Admission Reason for Admission: Anasarca, Left Leg Cellulitis Discharge Discharge Diagnosis / Problem: Cellulitis Discharge Goals Goal(s): Decrease discomfort, Improve function, Increase independence Activity Recommendations Activity Limitations: resume your previous activity . Instructions / Follow-Up Instructions / Follow-Up Bilateral Lower Extremity Cellulitis: Left worse than Right - Continue Keflex 250 mg twice a day. You had antibiotics today and will need to start this tomorrow 02/26/17 - Recommend to follow-up with wound care and see your family doctor Worsening Edema: - STOP your Lasix. You will be started on Bumex daily this is your new water pill Hypothyroidism: - Your TSH (thyroid hormone) keeps elevating and your Synthroid was increased to 125 mcg daily and you will need this rechecked in 6 weeks by your family doctor Follow-Up: "Please, follow up at [facility] on THIS ThursdayFebruary 27 at 2:30 pm. *This clinic is located at [address] in [place]. If you need to change this appointment you can call the clinic at . Please, follow up with Steven Parry PA-C on ThursdayMarch 03 at 1:40 pm. *If you need to change this appointment you can call the office at [phone]. Please, follow up with Dr. Whitaker in the [facility]. The doctor's nurse will contact you directly with the appointment details. *The office phone number is [phone]." Current Hospital Diet Patient's current hospital diet: Low Sodium Diet (2gm Na) Discharge Diet Recommended Diet: Low Sodium Diet (2gm Na) Pending Studies Studies pending at discharge: no Laboratory Results Lipid Panel Test 12/20/16 07:13 Range/Units Triglycerides Level 62 0-150 mg/dl Cholesterol Level 159 0-200 mg/dl HDL Cholesterol 102 mg/dl Cholesterol/HDL Ratio 1.6 LDL Cholesterol, Calculated 45 mg/dl Medical Emergencies . Who to Call and When: Medical Emergencies: If at any time you feel your situation is an emergency, please call 911 immediately. . Non-Emergent Contact Non-Emergency issues call your: Primary Care Provider Call Non-Emergent contact if: you have a fever, your pain is concerning you, you have any medication questions . . "Provider Documentation" section prepared by Holley Almanza. . VTE Core Measure Inpt VTE Proph given/why not?: Unfractionated heparin SQ
[2017-02-25] MEDS ORDERED: BUMETANIDE 1 MG TAB PO SCH (14:00)
[2017-02-25 15:30] VITALS: BP 104/65; PULSE 83; TEMP 36.9; O2SAT 92
[2017-02-25 15:31] VITALS: BP 104/65; PULSE 83; TEMP 36.9; O2SAT 92
--- NOTE | 2017-02-25 21:32 | Discharge Summary ---
Discharge Summary Date of Service Feb 25, 2017. Discharge Summary Admission Date: Feb 24, 2017 at 16:08 Discharge Date: Feb 25, 2017 Discharge Disposition: Home Principal Diagnosis: LLE Cellulitis Problems/Secondary Diagnoses: 1. Nephrotic Syndrome 2. Amyloidosis - Currently on Chemotherapy 3. Anasarca 4. Recurrent Pleural Effusions 5. Hypothyroidism 6. CKD Stage IV 7. Hypoalbuminemia Procedures: CHEST ONE VIEW PORTABLE FINDINGS: Atherosclerosis of aortic arch. Cardiac silhouette enlarged though the left heart border is observed. Slight interval decrease in the moderate to large left pleural effusion. Left mid to basilar opacity persists. Increased right basilar opacity and small right pleural effusion. Osseous structures normal. IMPRESSION: 1. Increasing right basilar consolidation and right pleural effusion. 2. Slight interval decrease in left mid to basilar consolidation and left pleural effusion. 3. These findings likely relate to underlying pulmonary edema in the setting of cardiomegaly. VENOUS DOPPLER LWR EXT BILA FINDINGS: Right: Common femoral vein: Patent. Greater saphenous vein: Patent. Deep femoral vein: Patent. Femoral vein: Patent. Popliteal vein: Patent. Calf veins: Limited visualization secondary to subcutaneous edema. Left: Common femoral vein: Patent. Previously noted abnormality is now apparent. Greater saphenous vein: Patent. Deep femoral vein: Patent. Femoral vein: Patent. Popliteal vein: Patent. Calf veins: Limited visualization secondary to subcutaneous edema. Other: Significant lower extremity edema. IMPRESSION: No evidence of deep venous thrombosis. Consultations: 1. Nephrology 2. PT/OT Medication Reconciliation New Medications: Cephalexin (Keflex) 500 Mg Cap 250 MG PO BID for 7 Days, #14 CAP Start on 02/26/17 Bumetanide (Bumetanide) 1 Mg Tab 1 MG PO DAILY for 30 Days, #30 TAB Changed Medications: Levothyroxine Sodium (Levothyroxine Sodium) 125 Mcg Tab 1 TAB PO DAILY for 30 Days, #30 TAB (Changed from: Levothyroxine Sodium 100 Mcg Tab 100 Mcg PO QAM) Continued Medications: Folic Acid (Folvite) 1 Mg Tab 1 MG PO DAILY, TAB Loratadine (Claritin) 10 Mg Tab 10 MG PO QAM, TAB Simvastatin (Zocor) 20 Mg Tab 20 MG PO QAM, TAB Discontinued Medications: Furosemide (Lasix) 40 Mg Tab 40 MG PO DAILY, TAB Discharge Exam Review of Systems: Constitutional: No fever, No chills, No fatigue Respiratory: + dyspnea on exertion (chronic), No cough, No dyspnea at rest Cardiovascular: No chest pain Abdomen: No pain, No nausea, No vomiting, No diarrhea, No constipation Musculoskeletal: + swelling, No calf pain Genitourinary - Male: No dysuria Hematologic / Lymphatic: No abnormal bleeding/bruising Physical Exam: General Appearance: WD/WN, no apparent distress Eyes: sclerae normal ENT: hearing grossly normal Respiratory/Chest: lungs clear, no respiratory distress, no accessory muscle use, + decreased breath sounds (bases b/l) Cardiovascular: regular rate, rhythm Abdomen / GI: normal bowel sounds, non tender, soft Extremities: + swelling (1-2+; erythema improving and like pink coloration of LLE) Neurologic/Psychiatric: alert, oriented x 3 Skin: warm/dry Hospital Course ADMISSION: 76 y/o M Hx ETOH abuse, chronic hypoalbuminemia, anasarca, pleural effusions, hypothyroidism, CKD IV, amyloidosis. Recent adjustments have been made to his diuretic dosing in an attempt to balance treatment of anasarca with deteriorating renal function. His last Lasix dose is reported to have been 40mg daily and at one point was 80mg BID. Since reducing his dose, he has exhibited rapid worsening of lower extremity edema, which is essentially why his family had brought him to the hospital. It is also noted that he had a blister on his LLE which ruptured and he appears to be developing cellulitis of the surrounding skin. The pt himself is a poor historian and does not have any complaints presently. A CXR is consistent with pulmonary edema and effusions. Initial labs are notable for worsening anemia and elevated TSH. An elevated creatinine and elevated troponin are chronic and at baseline. The pt was recently diagnosed with amyloidosis in evaluating proteinuric renal disease and has had 3 cycles of chemotherapy with Cytoxan and an additional agent. HOSPITAL COURSE: Mr. Sullivan was admitted for LLE>RLE Cellulitis. He was treated with Ceftriaxone and converted to Keflex 250 mg BID to complete a 10 day course. Medication was renally dosed for current kidney function. He was converted to Bumex 1 mg daily and this will likely need titration in the future to adequately diurese with adverse kidney function. Kidney function has remained stable. A good regimen for diuretics may not be easy to obtain as this is not treating the underlying issue. Recommend outpatient wound care for monitoring of his lower extremity wound and an appointment was established. Patient does have recurrent pleural effusions which have required thoracentesis in the past. Comparison of CXR from this admission compared to January shows improvement in effusion and would recommend outpatient monitoring for need for future thoracentesis. This did not seem necessary at this time. Patient did participate in a two-step prior to discharge and did not qualify for home O2. Upon assessment, TSH has been progressively increasing and his dose of Synthroid was increased from 100 to 125 mcg and will need repeat testing in [address] Whitaker's office and will need follow-up appointment to continue chemotherapy. Was instructed to hold chemotherapy medication during acute illness. He is afebrile and without leukocytosis. Cellulitis appears to be improving and he is optimal for D/C home with outpatient follow-up. Total Time Spent: Greater than 30 minutes This includes examination of the patient, discharge planning, medication reconciliation, and communication with other providers. Discharge Instructions Please refer to the electronic Patient Visit Report (Discharge Instructions) for additional information. Additional Copies To Steven Parry PA-C
== END 2017-02-25 17:47 | disposition home or self-care (01) | DRG 603 ==
LOC: C.EDB 16:44 → C.4E 20:10 → ENRESERV 20:28 → OBSVTOIN 02-24 16:08
PROVIDERS: ADMIT Internal Medicine; ATTEND Internal Medicine Sports Medicine
DX: L03.116 Cellulitis of left lower limb (principal); N04.9 Nephrotic syndrome with unspecified morphologic changes; N18.4 Chronic kidney disease, stage 4 (severe); E85.81 Light chain (AL) amyloidosis; J90 Pleural effusion, not elsewhere classified; L03.115 Cellulitis of right lower limb; D64.81 Anemia due to antineoplastic chemotherapy; T45.1X5A Adverse effect of antineoplastic and immunosuppressive drugs, initial encounter; R74.8 Abnormal levels of other serum enzymes; R60.1 Generalized edema; E03.9 Hypothyroidism, unspecified; E88.09 Other disorders of plasma-protein metabolism, not elsewhere classified; F10.10 Alcohol abuse, uncomplicated; I35.0 Nonrheumatic aortic (valve) stenosis; Z91.81 History of falling; Z87.891 Personal history of nicotine dependence; Z79.899 Other long term (current) drug therapy

== ENCOUNTER → 2017-03-16 | Outpatient (CLI) | payer OTHER ==
[~2017-03-16] MED LIST changes: +BUME1TAB PO; -CHOL2000 PO; -CYAN500T13 PO; -LEVO100T7 PO; +LEVO125T5 PO; -THM100 PO
[2017-03-16 17:57] LABS: ALBUMIN 1.9 gm/dl (3.4-5.0); BLOOD UREA NITROGEN 33 mg/dl (7-18); CALCIUM 8.1 mg/dl (8.5-10.1); CARBON DIOXIDE 24 mmol/L (21-32); CREATININE 2.21 mg/dl (0.60-1.40); GLUCOSE 100 mg/dl (70-99); PHOSPHORUS 4.5 mg/dl (2.5-4.9); POTASSIUM 3.8 mmol/L (3.5-5.1); SODIUM 140 mmol/L (136-145)
== END | disposition home or self-care (01) ==
LOC: C.LAB1850 15:57
PROVIDERS: ATTEND Internal Medicine Nephrology
DX: N17.9 Acute kidney failure, unspecified (principal); D47.2 Monoclonal gammopathy; N04.9 Nephrotic syndrome with unspecified morphologic changes

== ENCOUNTER → 2017-03-30 | Outpatient (CLI) | payer OTHER ==
[~2017-03-30] MED LIST changes: -LEVO125T5 PO
[2017-03-30 18:01] LABS: ALBUMIN 1.8 gm/dl (3.4-5.0); BLOOD UREA NITROGEN 38 mg/dl (7-18); CALCIUM 8.2 mg/dl (8.5-10.1); CARBON DIOXIDE 25 mmol/L (21-32); CREATININE 2.18 mg/dl (0.60-1.40); GLUCOSE 92 mg/dl (70-99); PHOSPHORUS 3.8 mg/dl (2.5-4.9); POTASSIUM 4.1 mmol/L (3.5-5.1); SODIUM 140 mmol/L (136-145)
== END | disposition home or self-care (01) ==
LOC: C.LABPBG 15:47
PROVIDERS: ATTEND Internal Medicine Nephrology
DX: N04.9 Nephrotic syndrome with unspecified morphologic changes (principal); N17.9 Acute kidney failure, unspecified

== ENCOUNTER 2017-05-25 17:28 | Inpatient (IN) | payer OTHER ==
[~2017-05-25] VITALS: Ht 180.3 cm; Wt 73.1 kg
[2017-05-25 18:08] LABS: BASO % 1.3 %; BASO ABS # 0.08 K/uL (0-0.2); EOS % 2.8 %; EOS ABS # 0.17 K/uL (0-0.5); IG# 0.01 K/uL (0.00-0.02); LYMPH % 13.8 %; LYMPH ABS # 0.85 K/uL (1.2-3.4); MEAN CELL VOLUME 97.5 fL (80-100); MEAN CORPUSCULAR HEMOGLOBIN 32.5 pg (25-34); MEAN CORPUSCULAR HGB CONC 33.3 g/dl (32-36); MEAN PLATELET VOLUME 10.8 fL (7.4-10.4); MONO ABS # 0.43 K/uL (0.11-0.59); NEUT % 74.9 %; PLATELET COUNT 216 K/uL (130-400); RED CELL DISTRIBUTION WIDTH CV 17.1 % (11.5-14.5); RED CELL DISTRIBUTION WIDTH SD 61.1 fL (36.4-46.3); WHITE BLOOD COUNT 6.14 K/uL (4.8-10.8)
--- NOTE | 2017-05-25 18:20 | DIAGNOSTIC IMAGING REPORT ---
CHEST ONE VIEW PORTABLE CLINICAL HISTORY: Atypical chest pain COMPARISON STUDY: 02/23/2017 FINDINGS: The cardiac and mediastinal contours remain stable. There are moderate bilateral pleural effusions. There are bibasal airspace opacities, likely representing atelectasis although a superimposed inflammatory process cannot be excluded. The upper lung zones appear clear. There is no pneumothorax.[ IMPRESSION: Moderate bilateral pleural effusions with associated by basilar opacities Electronically signed by: Jose Raul Higgins M.D. 05/25/2017 6:18 PM Dictated Date/Time: 05/25/2017 6:17 PM
[2017-05-25 18:26] LABS: ALT/SGPT 16 U/L (12-78); AST/SGOT 20 U/L (15-37); BLOOD UREA NITROGEN 16 mg/dl (7-18); CALCIUM 7.6 mg/dl (8.5-10.1); CARBON DIOXIDE 23 mmol/L (21-32); CREATININE 1.81 mg/dl (0.60-1.40); GLUCOSE 90 mg/dl (70-99); LIPASE 172 U/L (73-393); POTASSIUM 4.1 mmol/L (3.5-5.1); SODIUM 137 mmol/L (136-145)
[2017-05-25 18:33] LABS: ALKALINE PHOSPHATASE 71 U/L (45-117); TOTAL PROTEIN 4.9 gm/dl (6.4-8.2)
--- NOTE | 2017-05-25 18:47 | EMERGENCY ROOM VISIT NOTE ---
History Report prepared by Pola: Sonido Griffith Under the Supervision of: Dr. Lavell Koehler M.D. First contact with patient: 17:42 Chief Complaint: CHEST PAIN Stated Complaint: DIZZINESS,CHEST PAIN Nursing Triage Summary: Dizziness for the past two weeks, chest pressure History of Present Illness The patient is a 77 year old male who presents to the Emergency Room with complaints of intermittent dizziness and chest pain. The patient states that he first started experiencing a "pressure" in his chest three days ago. When the pain was present he rated this pain as a 2/10 in severity. This chest pressure is now resolved, per the patient. His dizziness has onset intermittently for the several weeks, but has been worsening over the past two weeks. The family at bedside note that he was hardly able to walk into the ED today secondary to his dizziness. The patient states that he does feel like he is going to pass out secondary to his dizziness. The patient has fallen a few times over the past couple of weeks, and the family is unsure if he lost consciousness before these falls. The patient is on chemotherapy currently for Amyloidosis. He has diarrhea, as a side effect from the treatments, but denies any other fevers or urinary symptoms. He is not on blood thinners. Source of History: patient Onset: Past several weeks. Position: head, chest Symptom Intensity: 2/10 chest pain Quality: pressure, other (Dizziness) Timing: intermittent Associated Symptoms: + diarrhea, No fevers, No urinary symptoms Review of Systems See HPI for pertinent positives and negatives. A total of ten systems were reviewed and were otherwise negative. Past Medical & Surgical Medical Problems: (1) Abnormal SPEP (2) Acute renal insufficiency (3) Amyloidosis (4) Amyloidosis (5) Anasarca (6) Anasarca associated with disorder of kidney (7) ARF (acute renal failure) (8) CKD (chronic kidney disease), stage IV (9) Frequent falls (10) Hypoalbuminemia (11) Nephrosis (12) Pleural effusion (13) Proteinuria (14) Rib fracture (15) Syncope (16) Syncope and collapse Social History Problems: (1) Alcohol abuse Family History No pertinent family history Social History Smoking Status: Never Smoker Drug Use: none Marital Status: single, Housing Status: lives with family Occupation Status: retired Current/Historical Medications Scheduled Bortezomib (Velcade), 1 MG SQ WK Bumetanide (Bumex), 1 TAB PO BID Cholecalciferol (Vitamin D3), 2,000 UNITS PO DAILY Cyanocobalamin (Vitamin B12 500MCG), 500 MCG PO DAILY Cyclophosphamide (Cyclophosphamide), 500 MG PO WK Dexamethasone (Decadron), 40 MG PO WK Folic Acid (Folvite), 1 MG PO DAILY Levothyroxine Sodium (Levothyroxine Sodium), 100 MCG PO DAILY Loratadine (Claritin), 10 MG PO QAM Omeprazole (Prilosec), 20 MG PO DAILY Potassium Chloride (Potassium Chloride ER), 20 MEQ PO DAILY/UD Thiamine Hcl (Vitamin B-1), 100 MG PO DAILY Valacyclovir (Valtrex), 500 MG PO DAILY Scheduled PRN Acetaminophen Tab (Tylenol), 325 MG PO QID PRN for Pain Diphenoxylate/Atropine (Lomotil), 1 TAB PO QID PRN for Diarrhea Lorazepam (Ativan), 1 MG PO Q6H PRN for Anxiety Ondansetron Hcl (Zofran), 8 MG PO TID PRN for Nausea Allergies Coded Allergies: No Known Allergies (Unverified , 02/23/17) Physical Exam Vital Signs Date Time Temp Pulse Resp B/P (MAP) Pulse Ox O2 Delivery O2 Flow Rate FiO2 05/25/17 18:57 77 134/78 96 Room Air 05/25/17 17:34 36.8 88 18 144/94 91 Room Air 05/25/17 17:34 91 Room Air 05/25/17 17:34 91 Room Air Physical Exam GENERAL: Awake, alert, chronically ill and fatigued-appearing, in no distress HENT: Normocephalic, atraumatic. Oropharynx with dry mm and otherwise unremarkable. EYES: Normal conjunctiva. Sclera non-icteric. NECK: Supple. No nuchal rigidity. FROM. No JVD. RESPIRATORY: Clear to auscultation. CARDIAC: Regular rate, normal rhythm. Extremities warm and well perfused. Pulses equal. ABDOMEN: Obese, Soft, non-distended. No tenderness to palpation. No rebound or guarding. No masses. RECTAL: Deferred. MUSCULOSKELETAL: Chest examination reveals no tenderness. The back is symmetrical on inspection without obvious abnormality. There is no CVA tenderness to palpation. No joint edema. LOWER EXTREMITIES: Calves are equal size bilaterally and non-tender. Scant edema bilaterally. No discoloration. NEURO: Normal sensorium. No sensory or motor deficits noted. Normal cerebellar function with [id number] and alternating palms. SKIN: No rash or jaundice noted. Medical Decision & Procedures ER Provider Diagnostic Interpretation: Radiology results as stated below per my review and radiologist interpretation: CT HEAD WITHOUT CONTRAST (CT) CLINICAL HISTORY: dizziness COMPARISON STUDY: 12/18/2016 TECHNIQUE: Axial CT of the brain is performed from the vertex to the skull base. IV contrast was not administered for this examination. A dose lowering technique was utilized adhering to the principles of ALARA. CT DOSE: 537.48 mGy.cm FINDINGS: No intra or extra-axial mass lesions are visualized. There is no CT evidence of acute cortical infarction. There is no evidence of midline shift. There is no acute hemorrhage. No calvarial fractures are visualized. There are minor white matter hypodensities likely on a small vessel basis. 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 There is no evidence of pathologic ventricular dilatation. There is no evidence of acute sinusitis IMPRESSION: No acute intracranial findings Electronically signed by: Jose Raul Higgins M.D. 05/25/2017 7:17 PM Dictated Date/Time: 05/25/2017 7:16 PM CHEST ONE VIEW PORTABLE CLINICAL HISTORY: Atypical chest pain COMPARISON STUDY: 02/23/2017 FINDINGS: The cardiac and mediastinal contours remain stable. There are moderate bilateral pleural effusions. There are bibasal airspace opacities, likely representing atelectasis although a superimposed inflammatory process cannot be excluded. The upper lung zones appear clear. There is no pneumothorax.[ IMPRESSION: Moderate bilateral pleural effusions with associated by basilar opacities Electronically signed by: Jose Raul Higgins M.D. 05/25/2017 6:18 PM Dictated Date/Time: 05/25/2017 6:17 PM Laboratory Results 05/25/17 17:52 Red Blood Count 2.77, Mean Corpuscular Volume 97.5, Mean Corpuscular Hemoglobin 32.5, Mean Corpuscular Hemoglobin Concent 33.3, Mean Platelet Volume 10.8, Neutrophils (%) (Auto) 74.9, Lymphocytes (%) (Auto) 13.8, Monocytes (%) (Auto) 7.0, Eosinophils (%) (Auto) 2.8, Basophils (%) (Auto) 1.3, Neutrophils # (Auto) 4.60, Lymphocytes # (Auto) 0.85, Monocytes # (Auto) 0.43, Eosinophils # (Auto) 0.17, Basophils # (Auto) 0.08 05/25/17 17:52 Test 05/25/17 17:52 05/25/17 18:48 White Blood Count 6.14 K/uL (4.8-10.8) Red Blood Count 2.77 M/uL (4.7-6.1) Hemoglobin 9.0 g/dL (14.0-18.0) Hematocrit 27.0 % (42-52) Mean Corpuscular Volume 97.5 fL (80-100) Mean Corpuscular Hemoglobin 32.5 pg (25-34) Mean Corpuscular Hemoglobin Concent 33.3 g/dl (32-36) Platelet Count 216 K/uL (130-400) Mean Platelet Volume 10.8 fL (7.4-10.4) Neutrophils (%) (Auto) 74.9 % Lymphocytes (%) (Auto) 13.8 % Monocytes (%) (Auto) 7.0 % Eosinophils (%) (Auto) 2.8 % Basophils (%) (Auto) 1.3 % Neutrophils # (Auto) 4.60 K/uL (1.4-6.5) Lymphocytes # (Auto) 0.85 K/uL (1.2-3.4) Monocytes # (Auto) 0.43 K/uL (0.11-0.59) Eosinophils # (Auto) 0.17 K/uL (0-0.5) Basophils # (Auto) 0.08 K/uL (0-0.2) RDW Standard Deviation 61.1 fL (36.4-46.3) RDW Coefficient of Variation 17.1 % (11.5-14.5) Immature Granulocyte % (Auto) 0.2 % Immature Granulocyte # (Auto) 0.01 K/uL (0.00-0.02) Anion Gap 8.0 mmol/L (3-11) Est Creatinine Clear Calc Drug Dose 34.9 ml/min Estimated GFR () 41.2 Estimated GFR (Non- 35.5 BUN/Creatinine Ratio 8.6 (10-20) Calcium Level 7.6 mg/dl (8.5-10.1) Magnesium Level 2.3 mg/dl (1.8-2.4) Total Bilirubin 0.4 mg/dl (0.2-1) Direct Bilirubin < 0.1 mg/dl (0-0.2) Aspartate Amino Transf (AST/SGOT) 20 U/L (15-37) Alanine Aminotransferase (ALT/SGPT) 16 U/L (12-78) Alkaline Phosphatase 71 U/L (45-117) Troponin I 0.129 ng/ml (0-0.045) Pro-B-Type Natriuretic Peptide 21974 pg/ml (0-1800) Total Protein 4.9 gm/dl (6.4-8.2) Albumin 2.0 gm/dl (3.4-5.0) Lipase 172 U/L (73-393) Prothrombin Time 10.2 SECONDS (9.0-12.0) Prothromb Time International Ratio 1.0 (0.9-1.1) Laboratory results reviewed by me Medications Administered Medications (Trade) Dose Ordered Sig/Sylvester Route Start Time Stop Time Status Last Admin Dose Admin Sodium Chloride 500 ml @ 100 mls/hr Q5H STAT IV 05/25/17 18:50 05/25/17 20:58 DC 05/25/17 18:54 100 MLS/HR ED Course 1836: The patient was evaluated in room B12B. A complete history and physical exam was performed. 1849: Ordered Sodium Chloride 500 mL @ 100 mL/hr IV. 1853: I discussed the case with Dr. Castillo - [facility] [place] Hospitalist. He will evaluate the patient for further treatment. Medical Decision I reviewed the patient's past medical history, medications, and the nursing notes as described above. Differential diagnosis: Etiologies such as metabolic, infection, hypo/hyperglycemia, electrolyte abnormalities, cardiac sources, intracerebral event, toxicologic, neurologic, as well as others were entertained. The patient is a 77-year-old gentleman with a past medical history of amyloidosis followed by Dr. Whitaker, [facility] oncology, currently undergoing chemotherapy who presents emergency department with generalized weakness and dizziness as well as chest pain since this weekend per hpi. On arrival, the patient is fatigued appearing but no acute distress, afebrile stable vital signs. The patient denies any chest pain today. However he reports his dizziness that has been ongoing and feels lightheaded when ambulating. Family at the bedside reports that he is unable to walk without assistance which is new from his baseline. EKG demonstrates sinus rhythm with intermittent PACs, does not appear to be A. fib as P waves precede QRS complexes, which are regular. Labs appear improved from patient's prior admission with creatinine of 1.8. WBC within normal limits. BNP is 12,000 however improved from 20,000 on his prior admission. Troponin is 0.1 however improved from 0.2 on his prior admission. Chest x-ray also unremarkable without evidence of overload. CT head negative. I discussed the patient's symptoms at length with the patient and his family and they report that since this weekend he has had a generalized decline in strength and his dizziness has persisted where they feel that he cannot safely ambulate. Given that the patient's labs are overall improved in the setting of his clinically dry appearance, it appears that the patient has mild dehydration, in the setting of being on Bumex, likely causing his dizziness. Given the patient's CKD and amyloidosis with elevated BNP, gentle hydration with IVF gtt likely most appropriate to avoid fluid overload. Case was d/w Dr. Carter, who will evaluate the patient for possible admission. Medication Reconcilliation Current Medication List: was personally reviewed by me Blood Pressure Screening Patient's blood pressure: Elevated blood pressure Referred to hospitalist. Consults Time Called: 1853 Consulting Physician: Dr. Jonathan SYED Hospitalist. Returned Call: 1853 I discussed the case with Dr. Jonathan SY[facility] Hospitalist. He will evaluate the patient for further treatment. Impression Primary Impression: Dizziness Additional Impression: Dehydration Scribe Attestation The scribe's documentation has been prepared under my direction and personally reviewed by me in its entirety. I confirm that the note above accurately reflects all work, treatment, procedures, and medical decision making performed by me. Departure Information Dispostion Being Evaluated By Hospitalist Referrals Steven Parry PA-C (PCP) Patient Instructions [facility] Problem Qualifiers
[2017-05-25] MEDS ORDERED: SODIUM CHLORIDE 0.9% 500ML 500 ML IV STA (18:50)
[2017-05-25] MEDS ORDERED: CHOL2000 PO (19:09)
[2017-05-25] MEDS ORDERED: CYAN500T13 PO (19:10)
[2017-05-25] MEDS ORDERED: MCRK/20 PO (19:16)
[2017-05-25] MEDS ORDERED: VALA500T60 PO (19:18)
--- NOTE | 2017-05-25 19:18 | DIAGNOSTIC IMAGING REPORT ---
CT HEAD WITHOUT CONTRAST (CT) CLINICAL HISTORY: dizziness COMPARISON STUDY: 12/18/2016 TECHNIQUE: Axial CT of the brain is performed from the vertex to the skull base. IV contrast was not administered for this examination. A dose lowering technique was utilized adhering to the principles of ALARA. CT DOSE: 537.48 mGy.cm FINDINGS: No intra or extra-axial mass lesions are visualized. There is no CT evidence of acute cortical infarction. There is no evidence of midline shift. There is no acute hemorrhage. No calvarial fractures are visualized. There are minor white matter hypodensities likely on a small vessel basis. 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 There is no evidence of pathologic ventricular dilatation. There is no evidence of acute sinusitis IMPRESSION: No acute intracranial findings Electronically signed by: Jose Raul Higgins M.D. 05/25/2017 7:17 PM Dictated Date/Time: 05/25/2017 7:16 PM
[2017-05-25] MEDS ORDERED: PRLSR20 PO (19:19)
[2017-05-25] MEDS ORDERED: LEVO100T7 PO (19:21)
[2017-05-25] MEDS ORDERED: CYCL1CAP19 PO (19:27)
[2017-05-25] MEDS ORDERED: DXM/4 PO (19:29)
[2017-05-25] MEDS ORDERED: DIPH-416 PO (19:32)
[2017-05-25] MEDS ORDERED: ATV/1 PO (19:33)
[2017-05-25] MEDS ORDERED: ONDA-170 PO (19:36)
[2017-05-25] MEDS ORDERED: THIA100T11 PO (19:37)
[2017-05-25] MEDS ORDERED: [UNRECOGNIZED DRUG - REMARK] SQ (19:38)
[2017-05-25] MEDS ORDERED: VLCI SQ (19:41)
[2017-05-25] MEDS ORDERED: ACET-1693 PO (19:45)
[2017-05-25] MEDS ORDERED: MAGNESIUM HYDROXIDE SUSP 30 ML UDC PO PRN (20:15)
[2017-05-25] MEDS ORDERED: POLYETHYLENE (MIRALAX) 17 GM PACK PO PRN (20:15)
[2017-05-25] MEDS ORDERED: ONDANSETRON INJ 2 MG/ML 2 ML VIAL IV PRN (20:15)
[2017-05-25] MEDS ORDERED: ACETAMINOPHEN 325 MG TAB PO PRN ×2 (20:15)
[2017-05-25] MEDS ORDERED: NITROGLYCERIN 0.4 MG SL PER TAB CHARGE SL PRN (20:15)
[2017-05-25] MEDS ORDERED: ALUMINUM/MAGNESIUM/SIMETH (MAALOX MAX) 30 ML UDC PO PRN (20:15)
[2017-05-25] MEDS ORDERED: LORAZEPAM 1 MG TAB PO PRN (20:15)
[2017-05-25] MEDS ORDERED: SCOPOLAMINE 1.5 MG TDSY TD SCH (21:00)
[2017-05-25] MEDS ORDERED: SODIUM CHLORIDE 0.9% 1000ML 1,000 ML IV SCH (21:00)
--- NOTE | 2017-05-25 21:03 | History and Physical ---
History & Physical Date & Time of Service: May 25, 2017 at 20:50 Chief Complaint: Dizziness Primary Care Physician: Steven Parry PA-C History of Present Illness 77-year-old male presents to the ED with complaints of minor chest pain over the last few days but also complains of dizziness that began when he started to chemotherapy for his amyloidosis. Patient has a distant history of alcohol abuse and had anasarca and hypoalbuminemia associated with proteinuria and was eventually diagnosed with amyloidosis. The patient's on chemotherapy of Velcade and pulse dexamethasone the last time he took his dexamethasone was 1 week ago he takes 40 mg at bedtime. Patient is been through 3 cycles of his chemotherapy and states that he spoke to Dr. Whitaker his oncologist about his dizziness and he says he does not believe is from the chemotherapeutic agent. The patient is difficult to define what his dizziness means he can mean almost passing out to some vertiginous-like symptoms according to him. Patient's had some diarrhea associated with his chemotherapy but not significant of late likewise the patient is a not any reduced appetite or oral intake and he has not noticed any reduction in urinary output over the last few days. Likewise his urine is clear and not concentrated. Patient feels he is too unsteady to do anything he feels his dizziness is positional it is not exacerbated by turning left or right with his head but is worse by sitting up or standing up which with some concern for postural hypotension Past Medical/Surgical History Medical Problems: (1) Abnormal SPEP (4) Alcoholism (5) Amyloidosis (7) Anasarca (10) Anemia (13) Bilateral pleural effusion (14) CKD (chronic kidney disease), stage IV (16) chronic Elevated troponin (21) Generalized weakness (22) Hypoalbuminemia (24) Hyponatremia (25) Left leg cellulitis (26) Malnutrition (27) Nephrosis (28) Pedal edema (30) Proteinuria (32) Rib fractures (36) Syncope and collapse (37) UTI (urinary tract infection) Family History No pertinent family history Social History Smoking Status: Never Smoker Drug Use: none Marital Status: single, Occupational Status: retired Allergies Coded Allergies: No Known Allergies (Unverified , 02/23/17) Home Medications Scheduled Bortezomib (Velcade), 1 MG SQ WK Bumetanide (Bumex), 1 TAB PO BID Cholecalciferol (Vitamin D3), 2,000 UNITS PO DAILY Cyanocobalamin (Vitamin B12 500MCG), 500 MCG PO DAILY Cyclophosphamide (Cyclophosphamide), 500 MG PO WK Dexamethasone (Decadron), 40 MG PO WK Folic Acid (Folvite), 1 MG PO DAILY Levothyroxine Sodium (Levothyroxine Sodium), 100 MCG PO DAILY Loratadine (Claritin), 10 MG PO QAM Omeprazole (Prilosec), 20 MG PO DAILY Potassium Chloride (Potassium Chloride ER), 20 MEQ PO DAILY/UD Thiamine Hcl (Vitamin B-1), 100 MG PO DAILY Valacyclovir (Valtrex), 500 MG PO DAILY Scheduled PRN Acetaminophen Tab (Tylenol), 325 MG PO QID PRN for Pain Diphenoxylate/Atropine (Lomotil), 1 TAB PO QID PRN for Diarrhea Lorazepam (Ativan), 1 MG PO Q6H PRN for Anxiety Ondansetron Hcl (Zofran), 8 MG PO TID PRN for Nausea Review of Systems ROS: Very thin man who appears frail No double vision blurry vision No problems with speech or swallowing has had difficulty with hearing for some time No palpitations, has had mild chest pain which spontaneously resolved and has not recurred No Wheezing or breathing issues No abdominal pain nausea vomiting but has had some diarrhea after chemo he has had no changes in appetite or weight No burning urine urine frequency or changes in color No focal joint pain or muscle pain No skin rashes or oral lesions No unusual bruising or bleeding No focused back pain or numbness or loss of strength No changes in memory or confusion Physical Exam Vital Signs Date Time Temp Pulse Resp B/P (MAP) Pulse Ox O2 Delivery O2 Flow Rate FiO2 05/25/17 18:57 77 134/78 96 Room Air 05/25/17 17:34 36.8 88 18 144/94 91 Room Air 05/25/17 17:34 91 Room Air 05/25/17 17:34 91 Room Air General Appearance: + mild distress, + thin Head: normocephalic, atraumatic Eyes: normal inspection, PERRL, EOMI, sclerae normal ENT: TMs normal, pharynx normal Neck: supple, thyroid normal Respiratory/Chest: chest non-tender, lungs clear, normal breath sounds, no respiratory distress Cardiovascular: regular rate, rhythm, + systolic murmur Abdomen/GI: normal bowel sounds, non tender, soft Back: no CVA tenderness, no muscle spasm Extremities/Musculoskelatal: no pedal edema, normal range of motion Neurologic/Psych: alert, oriented x 3 Skin: normal color, warm/dry, no rash Diagnostics Laboratory Results Results Past 24 Hours Test 05/25/17 17:52 05/25/17 18:48 05/25/17 20:37 Range/Units White Blood Count 6.14 4.8-10.8 K/uL Red Blood Count 2.77 4.7-6.1 M/uL Hemoglobin 9.0 14.0-18.0 g/dL Hematocrit 27.0 42-52 % Mean Corpuscular Volume 97.5 80-100 fL Mean Corpuscular Hemoglobin 32.5 25-34 pg Mean Corpuscular Hemoglobin Concent 33.3 32-36 g/dl Platelet Count 216 130-400 K/uL Mean Platelet Volume 10.8 7.4-10.4 fL Neutrophils (%) (Auto) 74.9 % Lymphocytes (%) (Auto) 13.8 % Monocytes (%) (Auto) 7.0 % Eosinophils (%) (Auto) 2.8 % Basophils (%) (Auto) 1.3 % Neutrophils # (Auto) 4.60 1.4-6.5 K/uL Lymphocytes # (Auto) 0.85 1.2-3.4 K/uL Monocytes # (Auto) 0.43 0.11-0.59 K/uL Eosinophils # (Auto) 0.17 0-0.5 K/uL Basophils # (Auto) 0.08 0-0.2 K/uL RDW Standard Deviation 61.1 36.4-46.3 fL RDW Coefficient of Variation 17.1 11.5-14.5 % Immature Granulocyte % (Auto) 0.2 % Immature Granulocyte # (Auto) 0.01 0.00-0.02 K/uL Sodium Level 137 136-145 mmol/L Potassium Level 4.1 3.5-5.1 mmol/L Chloride Level 106 98-107 mmol/L Carbon Dioxide Level 23 21-32 mmol/L Anion Gap 8.0 3-11 mmol/L Blood Urea Nitrogen 16 7-18 mg/dl Creatinine 1.81 0.60-1.40 mg/dl Est Creatinine Clear Calc Drug Dose 34.9 ml/min Estimated GFR () 41.2 Estimated GFR (Non- 35.5 BUN/Creatinine Ratio 8.6 10-20 Random Glucose 90 70-99 mg/dl Calcium Level 7.6 8.5-10.1 mg/dl Magnesium Level 2.3 1.8-2.4 mg/dl Total Bilirubin 0.4 0.2-1 mg/dl Direct Bilirubin < 0.1 0-0.2 mg/dl Aspartate Amino Transf (AST/SGOT) 20 15-37 U/L Alanine Aminotransferase (ALT/SGPT) 16 12-78 U/L Alkaline Phosphatase 71 45-117 U/L Troponin I 0.129 0-0.045 ng/ml Pro-B-Type Natriuretic Peptide 11359 0-1800 pg/ml Total Protein 4.9 6.4-8.2 gm/dl Albumin 2.0 3.4-5.0 gm/dl Lipase 172 73-393 U/L Prothrombin Time 10.2 9.0-12.0 SECONDS Prothromb Time International Ratio 1.0 0.9-1.1 Diagnostic Radiology headCT negative CXR normal other (first degree heart block with occasional dropped beats) Impression Assessment and Plan 77-year-old male presents with some chest pain and difficult to describe dizziness or lightheadedness Dizziness, this is likely multifactorial the patient is a very significant systolic ejection murmur and a history of mild to moderate aortic stenosis. The patient takes Bumex although he does not have a depressed EF but it does have some diastolic dysfunction. Patient also had some atrial arrhythmia on presentation with an occasional dropped beat. It is unclear if his valvular heart disease is playing a role in his dizziness and we will repeat an echocardiogram. He has a chronically elevated troponin which does not seem more worse than normal. We will have him on telemetry overnight and hold his Bumex with some gentle hydration. Telemetry also see if his dropped beats or more significant and arrhythmia not be the source of his dizziness , The patient's BNP is improved from previous his x-ray of his chest does not show significant changes this may be resultant from his valvular heart disease which we will evaluate vertigo patient states he has been on outpatient meclizine without much help we will try transdermal scopolamine and evaluate physical therapy and occupational therapy as well as orthostatic blood pressure measurements Adrenal suppression? Will have an a.m. cortisol drawn will not institute any replacement therapy at this time he does not have any abnormalities of sodium or potassium Chronic kidney disease stage III patient's creatinine is actually better than it has been in the past chronic diastolic heart failure Patient has history of alcohol abuse none most recently he will maintain himself on hispatient remains on suppressive valacyclovir therapy while in chemotherapy Thiamine and other multiple vitamins Resuscitation Status VTE Prophylaxis Will order VTE Prophylaxis: Yes
[2017-05-25 21:19] VITALS: BP 157/76; PULSE 94; TEMP 36.5; O2SAT 96; Ht 180.3 cm; Wt 73.1 kg
[2017-05-25] MEDS ORDERED: IV FLUIDS COMPLETED PRN (21:45)
[2017-05-25] MEDS: HEPARIN SOD 5000 UNIT/0.5 ML CARP SQ SCH (21:54)
[2017-05-25 23:40] VITALS: BP 109/71; PULSE 75; TEMP 36.6; O2SAT 95
[2017-05-26] VITALS (10 sets, daily range): BP systolic 95–128; BP diastolic 55–73; PULSE 66–109; TEMP 36.5–36.8; O2SAT 91–97
[2017-05-26] MEDS: LEVOTHYROXINE 100 MCG TAB PO SCH (06:14)
[2017-05-26 08:03] LABS: HEMATOCRIT 24.2 % (42-52); HEMOGLOBIN 8.1 g/dL (14.0-18.0); MEAN CELL VOLUME 97.6 fL (80-100); MEAN CORPUSCULAR HEMOGLOBIN 32.7 pg (25-34); MEAN CORPUSCULAR HGB CONC 33.5 g/dl (32-36); PLATELET COUNT 192 K/uL (130-400); WHITE BLOOD COUNT 5.64 K/uL (4.8-10.8)
--- NOTE | 2017-05-26 08:28 | DIAGNOSTIC IMAGING REPORT ---
CAROTID DOPPLER NECK ART HISTORY: Mental status change eval for carotid stenosis COMPARISON: None. TECHNIQUE: Real-time, grayscale, and color Doppler sonography of the carotid arteries was performed. Imaging reviewed in the transverse and longitudinal planes. All measurements were calculated based on NASCET criteria. FINDINGS: Antegrade flow is seen in the bilateral vertebral arteries. The brachial pressures are hemodynamically similar. Moderate plaque formation is identified bilaterally The peak systolic velocity within the right ICA is 56. The right systolic ratio is 1.2. The peak systolic velocity within the left ICA is 57. The left systolic ratio is 1.3. IMPRESSION: No hemodynamically significant stenosis seen within the carotid arteries. Moderate plaque formation bilaterally The above report was generated using voice recognition software. It may contain grammatical, syntax or spelling errors. Electronically signed by: Pavan Sullivan M.D. 05/26/2017 8:26 AM Dictated Date/Time: 05/26/2017 8:25 AM
[2017-05-26] MEDS: CHECK SCOPOLAMINE PATCH PLACEMENT SCH ×3 (08:41→16:08)
[2017-05-26] MEDS: LORATADINE 10 MG TAB PO SCH (08:42)
[2017-05-26] MEDS: CHOLECALCIFEROL 1000 INTER.UNIT TAB PO SCH (08:42)
[2017-05-26] MEDS: PANTOprazole SOD 40 MG TAB PO SCH (08:43)
[2017-05-26] MEDS: CYANOCOBALAMIN 500 MCG TAB (VIT B-12) PO SCH (08:43)
[2017-05-26] MEDS: THIAMINE HCL 100 MG TAB PO SCH (08:43)
[2017-05-26] MEDS: HEPARIN SOD 5000 UNIT/0.5 ML CARP SQ SCH ×2 (08:46→20:37)
[2017-05-26 08:48] LABS: CALCIUM 7.4 mg/dl (8.5-10.1); CREATININE 1.75 mg/dl (0.60-1.40); POTASSIUM 3.9 mmol/L (3.5-5.1)
--- NOTE | 2017-05-26 11:43 | ECHOCARDIOGRAM REPORT ---
*NOTICE TO RECEIVING LIBERTARIAN AGENCY This information is strictly Confidential and protected under [place] law. [place] law prohibits you from making any further disclosure of this information unless further disclosure is expressly permitted by the written consent of the person to whom it pertains or is authorized by law. A general authorization for the release of medical or other information is not sufficient for this purpose. Hospital accepts no responsibility if the information is made available to any other person, INCLUDING THE PATIENT. Interpretation Summary * Name: AB BARBA Study Date: 05/26/2017 06:50 AM BP: 117/68 mmHg * Patient Location: C.2T\S\E219\S\1 HR: 80 * : 1940 (M/d/yyyy) Gender: Male Height: 70 in * Age: 77 yrs Ethnicity: CA Weight: 156 lb * Ordering Physician: Nelson Castillo * Referring Physician: Self, Referred * Performed By: Olivia Shah RDCS * * Reason For Study: Valvular Heart Disease * BSA: 1.9 m2 * -- Conclusions -- * 1. Normal left ventricular size and systolic function. EF 65-70%. No regional wall motion abnormalities. Moderate concentric left ventricular hypertrophy. * 2. Mild aortic stenosis with trace regurgitation. * 3. Mild mitral regurgitation. * 4. Small circumferential pericardial effusion. No echocardiographic evidence of tamponade physiology. * Pleural effusion. * 5. Normal estimated right ventricular systolic pressure; 26mmHg. * 6. Compared to prior study on 12/19/2016, pericardial and pleural effusions are still present. Procedure Details * A complete two-dimensional transthoracic echocardiogram was performed (2D, M-mode, Doppler and color flow Doppler). Left Ventricle * Normal left ventricular size and systolic function. EF 65-70%. No regional wall motion abnormalities. Moderate concentric left ventricular hypertrophy. * No significant diastolic dysfunction. Right Ventricle * The right ventricle is normal in size and function. * The right ventricular systolic function is normal as assessed by tricuspid annular plane systolic excursion (TAPSE) (normal >1.5 cm). Atria * The left atrial size is normal. * Right atrial size is normal. * There is no evidence of atrial septal defect, but resolution does not allow assessment for a patent foramen ovale. Mitral Valve * There is no mitral valve stenosis. * There is mild mitral regurgitation. Tricuspid Valve * The tricuspid valve is not well visualized, but is grossly normal. * There is no tricuspid stenosis. * There is trace tricuspid regurgitation. Aortic Valve * Mild valvular aortic stenosis. * Trace aortic regurgitation. Pulmonic Valve * The pulmonary valve is inadequately visualized, but the Doppler data is adequate for interpretation. * There is no pulmonic valvular stenosis. * There is no significant pulmonary regurgitation. Great Vessels * The aortic root is normal size. Pericardium/Pleural * Small circumferential pericardial effusion. No echocardiographic evidence of tamponade physiology. * Pleural effusion. Great Vessels * Top normal IVC size with reduced inspiratory collapse. MMode 2D Measurements and Calculations IVSd 1.4 cm IVSs 1.5 cm LVIDd 3.7 cm LVIDs 2.2 cm LVPWd 1.4 cm LVPWs 1.8 cm IVS/LVPW 0.93 FS 41.5 % EDV(Teich) 59.2 ml ESV(Teich) 15.9 ml EF(Teich) 73.2 % EDV(cubed) 51.8 ml ESV(cubed) 10.4 ml EF(cubed) 80.0 % % IVS thick 11.4 % % LVPW thick 21.1 % LV mass(C)d 189.2 grams LV mass(C)dI 100.7 grams/m\S\2 LV mass(C)s 126.2 grams LV mass(C)sI 67.2 grams/m\S\2 SV(Teich) 43.3 ml SI(Teich) 23.1 ml/m\S\2 SV(cubed) 41.4 ml SI(cubed) 22.1 ml/m\S\2 Ao root diam 3.5 cm Ao root area 9.5 cm\S\2 ACS 1.1 cm LA dimension 3.0 cm LA/Ao 0.86 LVOT diam 1.9 cm LVOT area 3.0 cm\S\2 LVAd ap4 20.7 cm\S\2 LVLd ap4 7.8 cm EDV(MOD-sp4) 49.8 ml EDV(sp4-el) 46.9 ml LVAs ap4 10.8 cm\S\2 LVLs ap4 6.0 cm ESV(MOD-sp4) 17.9 ml ESV(sp4-el) 16.3 ml EF(MOD-sp4) 64.1 % EF(sp4-el) 65.2 % LVAd ap2 20.8 cm\S\2 LVLd ap2 8.0 cm EDV(MOD-sp2) 52.5 ml EDV(sp2-el) 45.9 ml LVAs ap2 9.5 cm\S\2 LVLs ap2 5.7 cm ESV(MOD-sp2) 16.4 ml ESV(sp2-el) 13.4 ml EF(MOD-sp2) 68.7 % EF(sp2-el) 70.8 % LVLd %diff 2.6 % EDV(MOD-bp) 50.1 ml LVLs %diff 0.38 % ESV(MOD-bp) 16.5 ml EF(MOD-bp) 67.0 % SV(MOD-sp4) 31.9 ml SI(MOD-sp4) 17.0 ml/m\S\2 SV(MOD-sp2) 36.1 ml SI(MOD-sp2) 19.2 ml/m\S\2 SV(MOD-bp) 33.5 ml SI(MOD-bp) 17.8 ml/m\S\2 SV(sp4-el) 30.6 ml SI(sp4-el) 16.3 ml/m\S\2 SV(sp2-el) 32.5 ml SI(sp2-el) 17.3 ml/m\S\2 Doppler Measurements and Calculations MV E max kirstin 106.6 cm/sec MV A max kirstin 87.6 cm/sec MV E/A 1.2 MV dec time 0.25 sec Ao V2 max 289.0 cm/sec Ao max PG 33.6 mmHg Ao max PG (full) 29.2 mmHg Ao V2 mean 180.3 cm/sec Ao mean PG 15.3 mmHg Ao mean PG (full) 12.7 mmHg Ao V2 VTI 54.5 cm LITO(I,A) 1.3 cm\S\2 LITO(I,D) 1.3 cm\S\2 LITO(V,A) 1.1 cm\S\2 LITO(V,D) 1.1 cm\S\2 AI max kirstin 423.8 cm/sec AI max PG 71.9 mmHg AI dec slope 245.8 cm/sec\S\2 AI P1/2t 505.1 msec LV V1 max PG 4.3 mmHg LV V1 mean PG 2.6 mmHg LV V1 max 104.0 cm/sec LV V1 mean 75.4 cm/sec LV V1 VTI 23.1 cm MR max kirstin 540.1 cm/sec MR max PG 116.7 mmHg MR mean kirstin 412.9 cm/sec MR mean PG 78.0 mmHg MR VTI 181.6 cm SV(Ao) 520.2 ml SI(Ao) 277.0 ml/m\S\2 SV(LVOT) 68.6 ml SI(LVOT) 36.5 ml/m\S\2 PA V2 max 77.6 cm/sec PA max PG 2.4 mmHg TR max kirstin 214.2 cm/sec RVSP(TR) 26.4 mmHg RAP systole 8.0 mmHg
[2017-05-26] MEDS: MIDODRINE 2.5 MG TAB PO SCH ×2 (13:25→16:35)
--- NOTE | 2017-05-26 16:27 | Progress Note ---
Subjective Date of Service: May 26, 2017. Subjective Pt evaluation today including: conversation w/ patient, physical exam, lab review, review of studies, review of inpatient medication list Pain: denies pain PO Intake: poor water intake Voiding: no voiding problems patient was dizzy/light headed this morning later in the day he ambulated to restroom with help, not faint d/w RN, orthostatic BP did drop by > 20 points this AM reviewed echo, normal EF, mild labs reviewed, Cr stable at 1.75, Hb down slightly at 8.1 reviewed monitor, had brief run of what looked like afib at rate of 150 no symptoms Problem List Medical Problems: (1) Acute kidney failure Status: Acute (2) Alcoholism Status: Acute (3) Anasarca Status: Acute (4) Anemia Status: Acute (5) Bilateral pleural effusion Status: Acute (6) Bilateral pleural effusion Status: Acute (7) Contusion, flank Status: Acute (8) Dehydration Status: Acute (9) Dizziness Status: Acute (10) Elevated troponin Status: Acute (11) Fluid overload Status: Acute (12) Forehead contusion Status: Acute (13) Generalized weakness Status: Acute (14) Hypoalbuminemia Status: Acute (15) Hyponatremia Status: Acute (16) Left leg cellulitis Status: Acute (17) Malnutrition Status: Acute (18) Pedal edema Status: Acute (19) Rib fractures Status: Acute (20) UTI (urinary tract infection) Status: Acute Review of Systems Constitutional: + weakness, + fatigue Abdomen: + diarrhea (due to chemotherapy) Neurologic: + weakness, + balance problems All Other Systems: Reviewed and Negative Medications Current Inpatient Medications Medications (Trade) Dose Ordered Sig/Sylvester Route Start Time Stop Time Status Last Admin Dose Admin Cyanocobalamin (Vitamin B-12 Tab) 500 mcg DAILY PO 05/26/17 09:00 06/25/17 08:59 05/26/17 08:43 500 MCG Folic Acid (Folvite Tab) 1 mg DAILY PO 05/26/17 09:00 06/25/17 08:59 05/26/17 08:42 1 MG Levothyroxine Sodium (Synthroid Tab) 100 mcg DAILYBB PO 05/26/17 06:00 06/25/17 05:59 05/26/17 06:14 100 MCG Loratadine (Claritin Tab) 10 mg QAM PO 05/26/17 09:00 06/25/17 08:59 05/26/17 08:42 10 MG Lorazepam (Ativan Tab) 1 mg Q6H PRN PO 05/25/17 20:15 06/24/17 20:14 Thiamine HCl (Vitamin B-1 Tab) 100 mg DAILY PO 05/26/17 09:00 06/25/17 08:59 05/26/17 08:43 100 MG Valacyclovir HCl (Valtrex Tab) 500 mg DAILY PO 05/26/17 09:00 06/05/17 08:59 05/26/17 08:43 500 MG Miscellaneous Information (Order Awaiting Action) 1 ea QS N/A 05/26/17 00:00 06/25/17 00:00 Cholecalciferol (Vitamin D Tab) 2,000 inter.unit DAILY PO 05/26/17 09:00 06/25/17 08:59 05/26/17 08:42 2,000 INTER.UNIT Miscellaneous Information (Order Awaiting Action) 1 ea QS N/A 05/26/17 00:00 06/25/17 00:00 Pantoprazole Sodium (Protonix Tab) 40 mg DAILY PO 05/26/17 09:00 06/25/17 08:59 05/26/17 08:43 40 MG Heparin Sodium (Porcine) (Heparin Sq 5000 Unit/0.5ml) 5,000 unit Q12 SQ 05/25/17 21:00 06/24/17 20:59 05/26/17 08:46 5,000 UNIT Acetaminophen (Tylenol Tab) 650 mg Q4H PRN PO 05/25/17 20:15 06/24/17 20:14 Al Hydrox/Mg Hydrox/Simethicone (Maalox Max Susp) 15 ml Q4H PRN PO 05/25/17 20:15 06/24/17 20:14 Magnesium Hydroxide (Milk Of Magnesia Susp) 30 ml Q12H PRN PO 05/25/17 20:15 06/24/17 20:14 Ondansetron HCl (Zofran Inj) 4 mg Q6H PRN IV 05/25/17 20:15 06/24/17 20:14 Nitroglycerin (Nitrostat Tab) 0.4 mg UD PRN SL 05/25/17 20:15 06/24/17 20:14 Polyethylene (Miralax Powder Packet) 17 gm DAILY PRN PO 05/25/17 20:15 06/24/17 20:14 Meclizine HCl (Antivert Tab) 25 mg Q8 PRN PO 05/25/17 20:15 06/24/17 20:14 Scopolamine (Transderm-Scop Patch) 1.5 mg Q72H TD 05/25/17 21:00 06/24/17 20:59 05/25/17 21:54 1.5 MG Miscellaneous (Remove Transderm-Scop Patch) 1 ea Q72H N/A 05/28/17 21:00 06/27/17 20:59 Miscellaneous Information (Check Scopolamine Patch Placement) 1 ea QS N/A 05/26/17 00:00 06/25/17 00:00 05/26/17 16:08 1 EA Bumetanide (Bumex Tab) 1 mg DAILY PO 05/27/17 09:00 06/26/17 08:59 Miscellaneous (Iv Fluids Completed) 1 ea PRN PRN N/A 05/25/17 21:45 05/25/18 21:44 Midodrine (Proamatine Tab) 5 mg TID@08,12,17 PO 05/26/17 12:00 06/25/17 11:59 05/26/17 13:25 5 MG Objective Vital Signs Date Time Temp Pulse Resp B/P (MAP) Pulse Ox O2 Delivery O2 Flow Rate FiO2 05/26/17 16:00 96 Room Air 05/26/17 15:22 36.6 75 22 111/64 (80) 94 Room Air 05/26/17 12:00 95 Room Air 05/26/17 11:32 36.5 76 18 116/68 (84) 97 Room Air 05/26/17 10:36 66 124/71 (88) 05/26/17 10:36 84 107/58 (74) 05/26/17 10:36 109 95/55 (68) 05/26/17 08:00 93 Room Air 05/26/17 07:45 36.5 80 18 124/67 (86) 93 Room Air 05/26/17 04:00 Room Air 05/26/17 03:38 36.8 80 16 117/68 (84) 91 Room Air 05/26/17 00:05 Room Air 05/25/17 23:40 36.6 75 16 109/71 (84) 95 Room Air 05/25/17 21:19 36.5 94 18 157/76 96 Room Air 05/25/17 21:01 69 135/74 95 05/25/17 18:57 77 134/78 96 Room Air 05/25/17 17:34 36.8 88 18 144/94 91 Room Air 05/25/17 17:34 91 Room Air 05/25/17 17:34 91 Room Air Physical Exam General Appearance: WD/WN, no apparent distress Eyes: normal inspection, EOMI, sclerae normal ENT: normal ENT inspection, hearing grossly normal, pharynx normal Neck: supple, no adenopathy, no JVD, trachea midline Respiratory/Chest: chest non-tender, lungs clear, no respiratory distress, no accessory muscle use, + decreased breath sounds (bases) Cardiovascular: regular rate, rhythm, no edema, no gallop, no JVD, no murmur Abdomen: normal bowel sounds, non tender, soft, no organomegaly Extremities: normal range of motion, non-tender, normal inspection, no pedal edema, no calf tenderness, pelvis stable Neurologic/Psychiatric: marketing support manager II-XII nml as tested, no motor/sensory deficits, alert, normal mood/affect, oriented x 3 Skin: normal color, warm/dry, no rash Laboratory Results Last 24 Hours Test 05/25/17 17:52 05/25/17 18:48 05/26/17 07:08 White Blood Count 6.14 K/uL 5.64 K/uL Red Blood Count 2.77 M/uL 2.48 M/uL Hemoglobin 9.0 g/dL 8.1 g/dL Hematocrit 27.0 % 24.2 % Mean Corpuscular Volume 97.5 fL 97.6 fL Mean Corpuscular Hemoglobin 32.5 pg 32.7 pg Mean Corpuscular Hemoglobin Concent 33.3 g/dl 33.5 g/dl Platelet Count 216 K/uL 192 K/uL Mean Platelet Volume 10.8 fL 11.0 fL Neutrophils (%) (Auto) 74.9 % Lymphocytes (%) (Auto) 13.8 % Monocytes (%) (Auto) 7.0 % Eosinophils (%) (Auto) 2.8 % Basophils (%) (Auto) 1.3 % Neutrophils # (Auto) 4.60 K/uL Lymphocytes # (Auto) 0.85 K/uL Monocytes # (Auto) 0.43 K/uL Eosinophils # (Auto) 0.17 K/uL Basophils # (Auto) 0.08 K/uL RDW Standard Deviation 61.1 fL 61.0 fL RDW Coefficient of Variation 17.1 % 17.0 % Immature Granulocyte % (Auto) 0.2 % Immature Granulocyte # (Auto) 0.01 K/uL Sodium Level 137 mmol/L 140 mmol/L Potassium Level 4.1 mmol/L 3.9 mmol/L Chloride Level 106 mmol/L 110 mmol/L Carbon Dioxide Level 23 mmol/L 24 mmol/L Anion Gap 8.0 mmol/L 7.0 mmol/L Blood Urea Nitrogen 16 mg/dl 16 mg/dl Creatinine 1.81 mg/dl 1.75 mg/dl Est Creatinine Clear Calc Drug Dose 34.9 ml/min 36.1 ml/min Estimated GFR () 41.2 42.9 Estimated GFR (Non- 35.5 37.0 BUN/Creatinine Ratio 8.6 9.0 Random Glucose 90 mg/dl 76 mg/dl Calcium Level 7.6 mg/dl 7.4 mg/dl Magnesium Level 2.3 mg/dl 2.3 mg/dl Total Bilirubin 0.4 mg/dl Direct Bilirubin < 0.1 mg/dl Aspartate Amino Transf (AST/SGOT) 20 U/L Alanine Aminotransferase (ALT/SGPT) 16 U/L Alkaline Phosphatase 71 U/L Troponin I 0.129 ng/ml 0.139 ng/ml Pro-B-Type Natriuretic Peptide 18216 pg/ml Total Protein 4.9 gm/dl Albumin 2.0 gm/dl Lipase 172 U/L Prothrombin Time 10.2 SECONDS Prothromb Time International Ratio 1.0 Cortisol AM Sample 6.69 mcg/dl Assessment and Plan 77-year-old male presents with some chest pain and difficult to describe dizziness or lightheadedness - Presyncope symptoms of light headed, dizzy had a significant drop in systolic pressure with standing likely dehydration from diarrhea continue IV fluids will add Midodrine 5mg TID and see how he responds PT/OT will ask cardiology for their input on brief run of afib, no clear symptoms mild on echo so doubt it is contributing minimal troponin elevation, no EKG changes, doubt DC Adrenal suppression? AM cortisol 6, within normal Chronic kidney disease stage III patient's creatinine is actually better than it has been in the past chronic diastolic heart failure Cr stable at 1.7 Patient has history of alcohol abuse none most recently Thiamine and other multiple vitamins
[2017-05-27] MEDS: CHECK SCOPOLAMINE PATCH PLACEMENT SCH ×3 (00:25→15:34)
[2017-05-27 03:40] VITALS: BP 134/70; PULSE 86; TEMP 36.8; O2SAT 93
[2017-05-27] MEDS: LEVOTHYROXINE 100 MCG TAB PO SCH (05:40)
[2017-05-27 07:04] LABS: CALCIUM 7.5 mg/dl (8.5-10.1); CREATININE 1.81 mg/dl (0.60-1.40); POTASSIUM 4.1 mmol/L (3.5-5.1)
[2017-05-27 07:37] VITALS: BP 136/65; PULSE 86; TEMP 36.6; O2SAT 99
[2017-05-27] MEDS: MECLIZINE HCL 25 MG TAB PO PRN (08:01)
--- NOTE | 2017-05-27 08:01 | CARDIOLOGY CONSULTATION ---
DATE OF CONSULTATION: 05/26/2017 CONSULTATION REQUESTED BY: Dr. Damon. REASON FOR CONSULTATION: Dizziness, SVT. HISTORY OF PRESENT ILLNESS: Mr. Sullivan is a 77-year-old man with a complex past medical history including amyloidosis, being treated actively with chemotherapy, chronic kidney disease, diastolic dysfunction, who was admitted in the setting of dizziness with hospital course complicated by questionable SVT. Cardiology was consulted for management and recommendations regarding possible SVT. The patient is a difficult historian, but per notes from ED and admission, the patient has been through approximately 3 cycles of chemotherapy over the recent time. He has had dizziness over most of that time but has had difficulty explaining what those symptoms feel like. In addition, he has also had diarrhea in the setting of his chemotherapy. Since admission, the patient has had documented orthostatics which show orthostasis with standing. Cardiac enzymes were remarkable for mildly elevated troponin, less than previously documented on prior admissions, EKG which has shown sinus arrhythmia with first-degree AV block, and telemetry which has been otherwise unremarkable except for a brief episode approximately 15 seconds of SVT. Echocardiogram was repeated today which showed preserved LV function with moderate LVH, mild aortic stenosis, a small pericardial effusion. PAST MEDICAL HISTORY: 1. Amyloidosis, treated with Velcade and dexamethasone, followed by Dr. Whitaker. 2. Chronic kidney disease stage IV, followed by Dr. Wilson. 3. Chronically elevated troponin. 4. Hypoalbuminemia with prior anasarca and bilateral pleural effusions. 5. BPH. 6. Hyperlipidemia. 7. Hypothyroidism. 8. Nephrotic-range proteinuria. 9. Prior history of alcoholism. FAMILY HISTORY: No pertinent family history relevant to the patient's own medical issues. SOCIAL HISTORY: He is a lifelong nonsmoker. He was a prior heavy alcohol user, denies any recently. He is retired and . ALLERGIES: No known drug allergies. HOME MEDICATIONS: Include Velcade, Bumex 1 mg b.i.d., vitamin D, vitamin B12, cyclophosphamide 500 mg q. week, dexamethasone 40 mg q. week, folic acid, levothyroxine, loratadine, omeprazole, potassium chloride, thiamine and acyclovir. REVIEW OF SYSTEMS: Ten-point review of systems is completed and otherwise negative unless stated in HPI. PHYSICAL EXAMINATION: VITAL SIGNS: Temperature 36.6, pulse 75, blood pressure 111/64, he is satting 94% on room air. GENERAL: The patient appears chronically ill but comfortable, in good spirits. HEENT: His sclerae are anicteric. His oropharynx is clear. NECK: Supple. He has no jugular venous distention. LUNGS: Decreased breath sounds at the bases bilaterally. HEART: He is regular with occasional premature beats, 2/6 systolic ejection murmur heard best at the right upper sternal border. ABDOMEN: Soft with mild tenderness in the right upper quadrant, with positive bowel sounds. EXTREMITIES: Warm. He has no significant lower extremity edema. He has 2+ radial and DP pulses bilaterally. SKIN: Shows no rashes or lesions. NEUROLOGIC: Grossly nonfocal. PSYCHIATRIC: He is alert, oriented to place, intermittently says nonsensical things. DATA: Hemoglobin of 8.1, platelets of 192. Sodium 137, potassium 4.1, BUN of 16, creatinine of 1.8. Troponin was positive at 0.129 and 0.139. Pro-BNP was elevated at 12,567, down from 21,000 in 02/2017. LFTs were within normal limits except for an albumin that was low at 2.0. IMAGING: Chest x-ray showed moderate bilateral pleural effusions. Head CT showed no acute cardiopulmonary process and carotid arterial duplex showed no hemodynamically significant stenosis with moderate plaque. Serial EKGs reviewed. There was sinus rhythm with first-degree AV block and occasional sinus arrhythmia, no dynamic ST changes. Echocardiogram today showed normal LV function, EF of 65-70%. There was moderate concentric LVH, small pericardial effusion. IMPRESSION AND PLAN: 1. Dizziness. 2. Paroxysmal supraventricular tachycardia. 3. Amyloidosis, on chemotherapy. 4. Moderate left ventricular hypertrophy with prior diastolic dysfunction. 5. Small pericardial effusion. 6. Stage IV chronic kidney disease. 7. Chronically elevated troponin. 8. Bilateral pleural effusions. 9. Hypoalbuminemia. Mr. Sullivan is here with dizziness in the setting of documented orthostasis with his known amyloidosis, on chemotherapy. Have reviewed the patient's echocardiogram, serial EKGs and telemetry. At this point, low suspicion that dizziness is primarily cardiac related. Agree with current management including midodrine, scopolamine patch and holding of current diuretics. In regard to noted paroxysmal SVT, the patient had 1 brief episode lasting approximately 15 seconds of SVT. Episode was irregularly irregular and cannot rule out atrial fibrillation; however, I feel episode seems to be more consistent with some form of atrial tachycardia. Regardless, at this point, would not recommend any additional treatment. Would avoid AV suha agents in the setting of above orthostasis. Would continue to follow on telemetry. At this time, no indication for any anticoagulation. Otherwise, at present the patient seems reasonably well compensated. I agree with continuing to hold diuretics, reassess in the a.m. and start back home Bumex as needed. No other active cardiac conditions at this time. We will continue to follow and monitor on telemetry. Thank you for consultation. ALEXANDER
[2017-05-27] MEDS: LORATADINE 10 MG TAB PO SCH (08:02)
[2017-05-27] MEDS: BUMETANIDE 1 MG TAB PO SCH (08:02)
[2017-05-27] MEDS: CYANOCOBALAMIN 500 MCG TAB (VIT B-12) PO SCH (08:03)
[2017-05-27] MEDS: CHOLECALCIFEROL 1000 INTER.UNIT TAB PO SCH (08:04)
[2017-05-27] MEDS: PANTOprazole SOD 40 MG TAB PO SCH (08:04)
[2017-05-27] MEDS: MIDODRINE 2.5 MG TAB PO SCH ×3 (08:04→17:20)
[2017-05-27] MEDS: THIAMINE HCL 100 MG TAB PO SCH (08:04)
[2017-05-27] MEDS: HEPARIN SOD 5000 UNIT/0.5 ML CARP SQ SCH ×2 (08:05→21:25)
[2017-05-27 11:52] VITALS: BP 129/64; PULSE 56; TEMP 36.5; O2SAT 96
--- NOTE | 2017-05-27 14:41 | Progress Note ---
Subjective Date of Service: May 27, 2017. Subjective Pt evaluation today including: conversation w/ patient, physical exam, lab review, review of studies, conversation w/ python consultant, review of inpatient medication list Pain: no pain PO Intake: adequate Voiding: no voiding problems patient feels a little better today since starting Midodrine says he feels unsteady though when walking far, concerned about falling he agrees to go to rehab reviewed labs, stable discussed with Dr. Erwin, appreciate recommendations Problem List Medical Problems: (1) Acute kidney failure Status: Acute (2) Alcoholism Status: Acute (3) Anasarca Status: Acute (4) Anemia Status: Acute (5) Bilateral pleural effusion Status: Acute (6) Bilateral pleural effusion Status: Acute (7) Contusion, flank Status: Acute (8) Dehydration Status: Acute (9) Dizziness Status: Acute (10) Elevated troponin Status: Acute (11) Fluid overload Status: Acute (12) Forehead contusion Status: Acute (13) Generalized weakness Status: Acute (14) Hypoalbuminemia Status: Acute (15) Hyponatremia Status: Acute (16) Left leg cellulitis Status: Acute (17) Malnutrition Status: Acute (18) Pedal edema Status: Acute (19) Rib fractures Status: Acute (20) UTI (urinary tract infection) Status: Acute Review of Systems Constitutional: + weakness, + fatigue Neurologic: + weakness, + balance problems All Other Systems: Reviewed and Negative Medications Current Inpatient Medications Medications (Trade) Dose Ordered Sig/Sylvester Route Start Time Stop Time Status Last Admin Dose Admin Cyanocobalamin (Vitamin B-12 Tab) 500 mcg DAILY PO 05/26/17 09:00 06/25/17 08:59 05/27/17 08:03 500 MCG Folic Acid (Folvite Tab) 1 mg DAILY PO 05/26/17 09:00 06/25/17 08:59 05/27/17 08:03 1 MG Levothyroxine Sodium (Synthroid Tab) 100 mcg DAILYBB PO 05/26/17 06:00 06/25/17 05:59 05/27/17 05:40 100 MCG Loratadine (Claritin Tab) 10 mg QAM PO 05/26/17 09:00 06/25/17 08:59 05/27/17 08:02 10 MG Lorazepam (Ativan Tab) 1 mg Q6H PRN PO 05/25/17 20:15 4/18/18 20:14 Thiamine HCl (Vitamin B-1 Tab) 100 mg DAILY PO 05/26/17 09:00 06/25/17 08:59 05/27/17 08:04 100 MG Valacyclovir HCl (Valtrex Tab) 500 mg DAILY PO 05/26/17 09:00 06/05/17 08:59 05/27/17 08:04 500 MG Miscellaneous Information (Order Awaiting Action) 1 ea QS N/A 05/26/17 00:00 06/25/17 00:00 Cholecalciferol (Vitamin D Tab) 2,000 inter.unit DAILY PO 05/26/17 09:00 06/25/17 08:59 05/27/17 08:04 2,000 INTER.UNIT Miscellaneous Information (Order Awaiting Action) 1 ea QS N/A 05/26/17 00:00 06/25/17 00:00 Pantoprazole Sodium (Protonix Tab) 40 mg DAILY PO 05/26/17 09:00 06/25/17 08:59 05/27/17 08:04 40 MG Heparin Sodium (Porcine) (Heparin Sq 5000 Unit/0.5ml) 5,000 unit Q12 SQ 05/25/17 21:00 06/24/17 20:59 05/27/17 08:05 5,000 UNIT Acetaminophen (Tylenol Tab) 650 mg Q4H PRN PO 05/25/17 20:15 06/24/17 20:14 Al Hydrox/Mg Hydrox/Simethicone (Maalox Max Susp) 15 ml Q4H PRN PO 05/25/17 20:15 06/24/17 20:14 Magnesium Hydroxide (Milk Of Magnesia Susp) 30 ml Q12H PRN PO 05/25/17 20:15 06/24/17 20:14 Ondansetron HCl (Zofran Inj) 4 mg Q6H PRN IV 05/25/17 20:15 06/24/17 20:14 Nitroglycerin (Nitrostat Tab) 0.4 mg UD PRN SL 05/25/17 20:15 06/24/17 20:14 Polyethylene (Miralax Powder Packet) 17 gm DAILY PRN PO 05/25/17 20:15 06/24/17 20:14 Meclizine HCl (Antivert Tab) 25 mg Q8 PRN PO 05/25/17 20:15 06/24/17 20:14 05/27/17 08:01 25 MG Scopolamine (Transderm-Scop Patch) 1.5 mg Q72H TD 05/25/17 21:00 06/24/17 20:59 05/25/17 21:54 1.5 MG Miscellaneous (Remove Transderm-Scop Patch) 1 ea Q72H N/A 05/28/17 21:00 06/27/17 20:59 Miscellaneous Information (Check Scopolamine Patch Placement) 1 ea QS N/A 05/26/17 00:00 06/25/17 00:00 05/27/17 08:00 1 EA Bumetanide (Bumex Tab) 1 mg DAILY PO 05/27/17 09:00 06/26/17 08:59 05/27/17 08:02 1 MG Miscellaneous (Iv Fluids Completed) 1 ea PRN PRN N/A 05/25/17 21:45 05/25/18 21:44 Midodrine (Proamatine Tab) 5 mg TID@08,12,17 PO 05/26/17 12:00 06/25/17 11:59 05/27/17 13:34 5 MG Objective Vital Signs Date Time Temp Pulse Resp B/P (MAP) Pulse Ox O2 Delivery O2 Flow Rate FiO2 05/27/17 12:00 Room Air 05/27/17 11:52 36.5 56 16 129/64 (85) 96 05/27/17 08:00 Room Air 05/27/17 07:37 36.6 86 18 136/65 (88) 99 05/27/17 03:40 36.8 86 18 134/70 (91) 93 Room Air 05/27/17 03:39 Room Air 05/27/17 00:26 Room Air 05/26/17 23:38 36.7 67 16 125/68 (87) 95 Room Air 05/26/17 20:30 Room Air 05/26/17 19:24 36.6 66 18 128/73 (91) 95 Room Air 05/26/17 16:00 96 Room Air 05/26/17 15:22 36.6 75 22 111/64 (80) 94 Room Air Physical Exam General Appearance: WD/WN, no apparent distress Eyes: normal inspection, EOMI, sclerae normal ENT: normal ENT inspection, hearing grossly normal, pharynx normal Neck: supple, no adenopathy, no JVD, trachea midline Respiratory/Chest: chest non-tender, lungs clear, normal breath sounds, no respiratory distress, no accessory muscle use Cardiovascular: regular rate, rhythm, no edema, no gallop, no JVD, no murmur Abdomen: normal bowel sounds, non tender, soft, no organomegaly Extremities: normal range of motion, non-tender, normal inspection, no pedal edema, no calf tenderness, pelvis stable Neurologic/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: 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 as tested, no motor/sensory deficits, alert, normal mood/affect, oriented x 3 Skin: normal color, warm/dry, no rash Lymphatic: no adenopathy Laboratory Results Last 24 Hours Test 05/27/17 03:35 05/27/17 06:00 Urine Color YELLOW Urine Appearance CLEAR Urine pH 6.0 Urine Specific [place] 1.011 Urine Protein 3+ Urine Glucose (UA) NEG Urine Ketones NEG Urine Occult Blood 2+ Urine Nitrite NEG Urine Bilirubin NEG Urine Urobilinogen NEG Urine Leukocyte Esterase NEG Urine WBC (Auto) 1-5 /hpf Urine RBC (Auto) 10-30 /hpf Urine Hyaline Casts (Auto) 0 /lpf Urine Epithelial Cells (Auto) 10-20 /lpf Urine Bacteria (Auto) NEG Sodium Level 142 mmol/L Potassium Level 4.1 mmol/L Chloride Level 112 mmol/L Carbon Dioxide Level 24 mmol/L Anion Gap 6.0 mmol/L Blood Urea Nitrogen 16 mg/dl Creatinine 1.81 mg/dl Est Creatinine Clear Calc Drug Dose 35.9 ml/min Estimated GFR () 41.2 Estimated GFR (Non- 35.5 BUN/Creatinine Ratio 9.0 Random Glucose 70 mg/dl Calcium Level 7.5 mg/dl Assessment and Plan 77-year-old male presents with some chest pain and difficult to describe dizziness or lightheadedness - Presyncope symptoms of light headed, dizzy had a significant drop in systolic pressure with standing so symptoms likely orthostasis likely dehydration from diarrhea can stop IV fluids continue Midodrine 5mg TID, responding well PT/OT - recommend rehab will ask cardiology for their input on brief run of afib, no clear symptoms do not feel symptoms are cardiac, agree with Midodrine mild on echo so doubt it is contributing minimal troponin elevation, no EKG changes, doubt [place] transfer to medical floor today Diarrhea from chemotherapy: resolved, typically has diarrhea for several days after chemo likely leads to dehydration could consider holding Bumex while he has diarrhea Adrenal suppression? AM cortisol 6, within normal Chronic kidney disease stage III patient's creatinine is actually better than it has been in the past chronic diastolic heart failure Cr stable at 1.8 Patient has history of alcohol abuse none most recently Thiamine and other multiple vitamins Disposition: referral placed to [facility] since patient lives in [place], will need insurance auth, hopeful for tomorrow transfer to medical floor
[2017-05-27 16:07] VITALS: BP 117/70; PULSE 88; TEMP 36.4; O2SAT 92
[2017-05-28] VITALS (8 sets, daily range): BP systolic 79–135; BP diastolic 46–78; PULSE 63–78; TEMP 36.6–36.8; O2SAT 93–97
[2017-05-28] MEDS: CHECK SCOPOLAMINE PATCH PLACEMENT SCH ×2 (00:16→07:58)
[2017-05-28 06:15] LABS: HEMATOCRIT 23.5 % (42-52); HEMOGLOBIN 7.8 g/dL (14.0-18.0); MEAN CELL VOLUME 98.3 fL (80-100); MEAN CORPUSCULAR HEMOGLOBIN 32.6 pg (25-34); MEAN CORPUSCULAR HGB CONC 33.2 g/dl (32-36); MEAN PLATELET VOLUME 11.1 fL (7.4-10.4); PLATELET COUNT 202 K/uL (130-400); RED CELL DISTRIBUTION WIDTH CV 16.8 % (11.5-14.5); RED CELL DISTRIBUTION WIDTH SD 60.6 fL (36.4-46.3); WHITE BLOOD COUNT 5.58 K/uL (4.8-10.8)
[2017-05-28] MEDS: LEVOTHYROXINE 100 MCG TAB PO SCH (06:28)
[2017-05-28 06:51] LABS: CALCIUM 7.7 mg/dl (8.5-10.1); CREATININE 1.88 mg/dl (0.60-1.40); POTASSIUM 3.9 mmol/L (3.5-5.1)
[2017-05-28] MEDS: THIAMINE HCL 100 MG TAB PO SCH (07:45)
[2017-05-28] MEDS: PANTOprazole SOD 40 MG TAB PO SCH (07:45)
[2017-05-28] MEDS: MECLIZINE HCL 25 MG TAB PO PRN (07:46)
[2017-05-28] MEDS: CHOLECALCIFEROL 1000 INTER.UNIT TAB PO SCH (07:46)
[2017-05-28] MEDS: LORATADINE 10 MG TAB PO SCH (07:46)
[2017-05-28] MEDS: MIDODRINE 2.5 MG TAB PO SCH ×3 (07:47→16:51)
[2017-05-28] MEDS: BUMETANIDE 1 MG TAB PO SCH (07:47)
[2017-05-28] MEDS: CYANOCOBALAMIN 500 MCG TAB (VIT B-12) PO SCH (07:47)
[2017-05-28] MEDS: HEPARIN SOD 5000 UNIT/0.5 ML CARP SQ SCH ×2 (07:56→21:22)
--- NOTE | 2017-05-28 16:09 | Progress Note ---
Subjective Date of Service: May 28, 2017. Subjective Pt evaluation today including: conversation w/ patient, conversation w/ family (sister Peg), physical exam, lab review, review of inpatient medication list Pain: no pain PO Intake: adequate Voiding: no voiding problems patient feeling well today, less dizziness Hb down to 7.8, d/w patient's sister about transfusion, she consented patient confused, cannot tell me what type of building he is in, does not know year or month discussed with patient's sister, could be scopolamine patch patient's BP was low normal in the afternoon, decided to increase Midodrine to 10mg TID Problem List Medical Problems: (1) Acute kidney failure Status: Acute (2) Alcoholism Status: Acute (3) Anasarca Status: Acute (4) Anemia Status: Acute (5) Bilateral pleural effusion Status: Acute (6) Bilateral pleural effusion Status: Acute (7) Contusion, flank Status: Acute (8) Dehydration Status: Acute (9) Dizziness Status: Acute (10) Elevated troponin Status: Acute (11) Fluid overload Status: Acute (12) Forehead contusion Status: Acute (13) Generalized weakness Status: Acute (14) Hypoalbuminemia Status: Acute (15) Hyponatremia Status: Acute (16) Left leg cellulitis Status: Acute (17) Malnutrition Status: Acute (18) Pedal edema Status: Acute (19) Rib fractures Status: Acute (20) UTI (urinary tract infection) Status: Acute Review of Systems Constitutional: + weakness, + fatigue Neurologic: + vertigo, + balance problems All Other Systems: Reviewed and Negative Medications Current Inpatient Medications Medications (Trade) Dose Ordered Sig/Sylvester Route Start Time Stop Time Status Last Admin Dose Admin Cyanocobalamin (Vitamin B-12 Tab) 500 mcg DAILY PO 05/26/17 09:00 06/25/17 08:59 05/28/17 07:47 500 MCG Folic Acid (Folvite Tab) 1 mg DAILY PO 05/26/17 09:00 06/25/17 08:59 05/28/17 07:46 1 MG Levothyroxine Sodium (Synthroid Tab) 100 mcg DAILYBB PO 05/26/17 06:00 06/25/17 05:59 05/28/17 06:28 100 MCG Loratadine (Claritin Tab) 10 mg QAM PO 05/26/17 09:00 06/25/17 08:59 05/28/17 07:46 10 MG Lorazepam (Ativan Tab) 1 mg Q6H PRN PO 05/25/17 20:15 06/24/17 20:14 Thiamine HCl (Vitamin B-1 Tab) 100 mg DAILY PO 05/26/17 09:00 06/25/17 08:59 05/28/17 07:45 100 MG Valacyclovir HCl (Valtrex Tab) 500 mg DAILY PO 05/26/17 09:00 06/05/17 08:59 05/28/17 07:46 500 MG Miscellaneous Information (Order Awaiting Action) 1 ea QS N/A 05/26/17 00:00 06/25/17 00:00 Cholecalciferol (Vitamin D Tab) 2,000 inter.unit DAILY PO 05/26/17 09:00 06/25/17 08:59 05/28/17 07:46 2,000 INTER.UNIT Miscellaneous Information (Order Awaiting Action) 1 ea QS N/A 05/26/17 00:00 06/25/17 00:00 Pantoprazole Sodium (Protonix Tab) 40 mg DAILY PO 05/26/17 09:00 06/25/17 08:59 05/28/17 07:45 40 MG Heparin Sodium (Porcine) (Heparin Sq 5000 Unit/0.5ml) 5,000 unit Q12 SQ 05/25/17 21:00 06/24/17 20:59 05/28/17 07:56 5,000 UNIT Acetaminophen (Tylenol Tab) 650 mg Q4H PRN PO 05/25/17 20:15 06/24/17 20:14 Al Hydrox/Mg Hydrox/Simethicone (Maalox Max Susp) 15 ml Q4H PRN PO 05/25/17 20:15 06/24/17 20:14 Magnesium Hydroxide (Milk Of Magnesia Susp) 30 ml Q12H PRN PO 05/25/17 20:15 06/24/17 20:14 Ondansetron HCl (Zofran Inj) 4 mg Q6H PRN IV 05/25/17 20:15 06/24/17 20:14 Nitroglycerin (Nitrostat Tab) 0.4 mg UD PRN SL 05/25/17 20:15 06/24/17 20:14 Polyethylene (Miralax Powder Packet) 17 gm DAILY PRN PO 05/25/17 20:15 06/24/17 20:14 Meclizine HCl (Antivert Tab) 25 mg Q8 PRN PO 05/25/17 20:15 06/24/17 20:14 05/28/17 07:46 25 MG Bumetanide (Bumex Tab) 1 mg DAILY PO 05/27/17 09:00 06/26/17 08:59 05/28/17 07:47 1 MG Miscellaneous (Iv Fluids Completed) 1 ea PRN PRN N/A 05/25/17 21:45 05/25/18 21:44 Midodrine (Proamatine Tab) 10 mg TID@08,12,17 PO 05/28/17 12:00 06/25/17 11:59 05/28/17 12:21 10 MG Objective Vital Signs Date Time Temp Pulse Resp B/P (MAP) Pulse Ox O2 Delivery O2 Flow Rate FiO2 05/28/17 14:30 36.7 65 18 127/78 05/28/17 13:30 36.7 71 18 90/49 05/28/17 12:30 36.7 67 18 102/63 93 05/28/17 12:00 36.6 63 18 79/46 94 05/28/17 11:40 36.7 69 20 87/55 05/28/17 08:00 Room Air 05/28/17 07:39 36.8 65 18 108/64 (79) 97 Room Air 05/28/17 00:20 36.7 78 20 114/67 (83) 95 Room Air 05/28/17 00:00 Room Air 05/27/17 16:07 36.4 88 18 117/70 (86) 92 Room Air Physical Exam General Appearance: WD/WN, no apparent distress Eyes: normal inspection, EOMI, sclerae normal ENT: normal ENT inspection, hearing grossly normal, pharynx normal Neck: supple, no adenopathy, no JVD, trachea midline Respiratory/Chest: chest non-tender, lungs clear, normal breath sounds, no respiratory distress, no accessory muscle use Cardiovascular: regular rate, rhythm, no edema, no gallop, no JVD, no murmur Abdomen: normal bowel sounds, non tender, soft, no organomegaly Extremities: normal range of motion, non-tender, normal inspection, no pedal edema, no calf tenderness, pelvis stable 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, alert, normal mood/affect, + abnormal gait, + motor weakness, + disoriented Skin: normal color, warm/dry, no rash Laboratory Results Last 24 Hours Test 05/28/17 05:31 White Blood Count 5.58 K/uL Red Blood Count 2.39 M/uL Hemoglobin 7.8 g/dL Hematocrit 23.5 % Mean Corpuscular Volume 98.3 fL Mean Corpuscular Hemoglobin 32.6 pg Mean Corpuscular Hemoglobin Concent 33.2 g/dl RDW Standard Deviation 60.6 fL RDW Coefficient of Variation 16.8 % Platelet Count 202 K/uL Mean Platelet Volume 11.1 fL Sodium Level 141 mmol/L Potassium Level 3.9 mmol/L Chloride Level 110 mmol/L Carbon Dioxide Level 24 mmol/L Anion Gap 7.0 mmol/L Blood Urea Nitrogen 17 mg/dl Creatinine 1.88 mg/dl Est Creatinine Clear Calc Drug Dose 34.6 ml/min Estimated GFR () 39.3 Estimated GFR (Non- 33.9 BUN/Creatinine Ratio 9.0 Random Glucose 76 mg/dl Calcium Level 7.7 mg/dl Magnesium Level 2.4 mg/dl Assessment and Plan 77-year-old male presents with some chest pain and difficult to describe dizziness or lightheadedness - Presyncope symptoms of light headed, dizzy had a significant drop in systolic pressure with standing so symptoms likely orthostatic hypotension likely dehydration from diarrhea increase Midodrine to 10mg TID PT/OT - recommend rehab will ask cardiology for their input on brief run of afib, no clear symptoms do not feel symptoms are cardiac, agree with Midodrine mild on echo so doubt it is contributing minimal troponin elevation, no EKG changes, doubt [place] Diarrhea from chemotherapy: resolved, typically has diarrhea for several days after chemo likely leads to dehydration could consider holding Bumex while he has diarrhea Confusion, likely toxic encephalopathy likely from scopolamine patch that was started on admission d/c patch today Acute on chronic anemia: could be due to bone marrow suppression with chemotherapy Hb down to 7.8 today, transfuse one unit today Adrenal suppression? AM cortisol 6, within normal Chronic kidney disease stage III patient's creatinine is actually better than it has been in the past chronic diastolic heart failure Cr stable at 1.88 will hold Bumex with low blood pressure today Patient has history of alcohol abuse none most recently Thiamine and other multiple vitamins Disposition: needs rehab, [facility] not accept insurance, his sister will need to pick alternative SNF
[2017-05-29 00:13] VITALS: BP 117/68; PULSE 61; TEMP 37; O2SAT 96
[2017-05-29] MEDS: LEVOTHYROXINE 100 MCG TAB PO SCH (06:27)
[2017-05-29 07:03] LABS: HEMATOCRIT 25.7 % (42-52); HEMOGLOBIN 8.7 g/dL (14.0-18.0)
[2017-05-29 07:05] VITALS: BP 130/74; PULSE 92; TEMP 36.7; O2SAT 92
[2017-05-29 07:34] LABS: CALCIUM 7.4 mg/dl (8.5-10.1); CREATININE 2.08 mg/dl (0.60-1.40); POTASSIUM 3.9 mmol/L (3.5-5.1)
[2017-05-29] MEDS: CHOLECALCIFEROL 1000 INTER.UNIT TAB PO SCH (09:16)
[2017-05-29] MEDS: PANTOprazole SOD 40 MG TAB PO SCH (09:16)
[2017-05-29] MEDS: MIDODRINE 2.5 MG TAB PO SCH ×3 (09:17→17:27)
[2017-05-29] MEDS: THIAMINE HCL 100 MG TAB PO SCH (09:18)
[2017-05-29] MEDS: LORATADINE 10 MG TAB PO SCH (09:18)
[2017-05-29] MEDS: CYANOCOBALAMIN 500 MCG TAB (VIT B-12) PO SCH (09:18)
[2017-05-29] MEDS: HEPARIN SOD 5000 UNIT/0.5 ML CARP SQ SCH ×2 (09:20→21:20)
[2017-05-29 15:20] VITALS: BP 112/67; PULSE 67; TEMP 36.8; O2SAT 90
[2017-05-29 20:00] VITALS: O2SAT 90
--- NOTE | 2017-05-29 20:35 | Progress Note ---
Subjective Date of Service: May 29, 2017. Subjective Pt evaluation today including: conversation w/ patient, physical exam, lab review, review of inpatient medication list Pain: no pain PO Intake: adequate Voiding: no voiding problems patient more oriented today, alert ambulating better, he denies dizziness/light headedness reviewed labs, Hb 8.7 after transfusion, Cr up to 2.08 Problem List Medical Problems: (1) Acute kidney failure Status: Acute (2) Alcoholism Status: Acute (3) Anasarca Status: Acute (4) Anemia Status: Acute (5) Bilateral pleural effusion Status: Acute (6) Bilateral pleural effusion Status: Acute (7) Contusion, flank Status: Acute (8) Dehydration Status: Acute (9) Dizziness Status: Acute (10) Elevated troponin Status: Acute (11) Fluid overload Status: Acute (12) Forehead contusion Status: Acute (13) Generalized weakness Status: Acute (14) Hypoalbuminemia Status: Acute (15) Hyponatremia Status: Acute (16) Left leg cellulitis Status: Acute (17) Malnutrition Status: Acute (18) Pedal edema Status: Acute (19) Rib fractures Status: Acute (20) UTI (urinary tract infection) Status: Acute Review of Systems Constitutional: + weakness Neurologic: + memory loss, + weakness, + balance problems All Other Systems: Reviewed and Negative Medications Current Inpatient Medications Medications (Trade) Dose Ordered Sig/Sylvester Route Start Time Stop Time Status Last Admin Dose Admin Cyanocobalamin (Vitamin B-12 Tab) 500 mcg DAILY PO 05/26/17 09:00 06/25/17 08:59 05/29/17 09:18 500 MCG Folic Acid (Folvite Tab) 1 mg DAILY PO 05/26/17 09:00 06/25/17 08:59 05/29/17 09:17 1 MG Levothyroxine Sodium (Synthroid Tab) 100 mcg DAILYBB PO 05/26/17 06:00 06/25/17 05:59 05/29/17 06:27 100 MCG Loratadine (Claritin Tab) 10 mg QAM PO 05/26/17 09:00 06/25/17 08:59 05/29/17 09:18 10 MG Lorazepam (Ativan Tab) 1 mg Q6H PRN PO 05/25/17 20:15 06/24/17 20:14 Thiamine HCl (Vitamin B-1 Tab) 100 mg DAILY PO 05/26/17 09:00 06/25/17 08:59 05/29/17 09:18 100 MG Valacyclovir HCl (Valtrex Tab) 500 mg DAILY PO 05/26/17 09:00 06/05/17 08:59 05/29/17 09:16 500 MG Miscellaneous Information (Order Awaiting Action) 1 ea QS N/A 05/26/17 00:00 06/25/17 00:00 Cholecalciferol (Vitamin D Tab) 2,000 inter.unit DAILY PO 05/26/17 09:00 06/25/17 08:59 05/29/17 09:16 2,000 INTER.UNIT Miscellaneous Information (Order Awaiting Action) 1 ea QS N/A 05/26/17 00:00 06/25/17 00:00 Pantoprazole Sodium (Protonix Tab) 40 mg DAILY PO 05/26/17 09:00 06/25/17 08:59 05/29/17 09:16 40 MG Heparin Sodium (Porcine) (Heparin Sq 5000 Unit/0.5ml) 5,000 unit Q12 SQ 05/25/17 21:00 06/24/17 20:59 05/29/17 09:20 5,000 UNIT Acetaminophen (Tylenol Tab) 650 mg Q4H PRN PO 05/25/17 20:15 06/24/17 20:14 Al Hydrox/Mg Hydrox/Simethicone (Maalox Max Susp) 15 ml Q4H PRN PO 05/25/17 20:15 06/24/17 20:14 Magnesium Hydroxide (Milk Of Magnesia Susp) 30 ml Q12H PRN PO 05/25/17 20:15 06/24/17 20:14 Ondansetron HCl (Zofran Inj) 4 mg Q6H PRN IV 05/25/17 20:15 06/24/17 20:14 Nitroglycerin (Nitrostat Tab) 0.4 mg UD PRN SL 05/25/17 20:15 06/24/17 20:14 Polyethylene (Miralax Powder Packet) 17 gm DAILY PRN PO 05/25/17 20:15 06/24/17 20:14 Meclizine HCl (Antivert Tab) 25 mg Q8 PRN PO 05/25/17 20:15 06/24/17 20:14 05/28/17 07:46 25 MG Miscellaneous (Iv Fluids Completed) 1 ea PRN PRN N/A 05/25/17 21:45 05/25/18 21:44 Midodrine (Proamatine Tab) 10 mg TID@08,12,17 PO 05/28/17 12:00 06/25/17 11:59 05/29/17 17:27 10 MG Objective Vital Signs Date Time Temp Pulse Resp B/P (MAP) Pulse Ox O2 Delivery O2 Flow Rate FiO2 05/29/17 16:00 Room Air 05/29/17 15:20 36.8 67 18 112/67 (82) 90 Room Air 05/29/17 08:00 Room Air 05/29/17 07:05 36.7 92 18 130/74 (92) 92 05/29/17 00:13 37.0 61 20 117/68 (84) 96 Room Air 05/29/17 00:00 Room Air Physical Exam General Appearance: WD/WN, no apparent distress Eyes: normal inspection, EOMI, sclerae normal ENT: normal ENT inspection, hearing grossly normal, pharynx normal Neck: supple, no adenopathy, no JVD, trachea midline Respiratory/Chest: chest non-tender, lungs clear, normal breath sounds, no respiratory distress, no accessory muscle use Cardiovascular: regular rate, rhythm, no edema, no gallop, no JVD, no murmur Abdomen: normal bowel sounds, non tender, soft, no organomegaly Extremities: normal range of motion, non-tender, normal inspection, no pedal edema, no calf tenderness Neurologic/Psychiatric: automatic spinning lathe setter II-XII nml as tested, no motor/sensory deficits, alert, normal mood/affect, oriented x 3 Skin: normal color, warm/dry, no rash Laboratory Results Last 24 Hours Test 05/29/17 06:18 Hemoglobin 8.7 g/dL Hematocrit 25.7 % Sodium Level 140 mmol/L Potassium Level 3.9 mmol/L Chloride Level 112 mmol/L Carbon Dioxide Level 20 mmol/L Anion Gap 8.0 mmol/L Blood Urea Nitrogen 21 mg/dl Creatinine 2.08 mg/dl Est Creatinine Clear Calc Drug Dose 31.2 ml/min Estimated GFR () 34.8 Estimated GFR (Non- 30.0 BUN/Creatinine Ratio 10.0 Random Glucose 77 mg/dl Calcium Level 7.4 mg/dl Assessment and Plan 77-year-old male presents with some chest pain and difficult to describe dizziness or lightheadedness - Presyncope symptoms of light headed, dizzy had a significant drop in systolic pressure with standing so symptoms likely orthostatic hypotension likely worsened by dehydration from diarrhea increased Midodrine to 10mg TID on 05/28 symptoms are improved PT/OT - recommend rehab will ask cardiology for their input on brief run of afib, no clear symptoms do not feel symptoms are cardiac, agree with Midodrine mild on echo so doubt it is contributing minimal troponin elevation, no EKG changes, doubt PR Diarrhea from chemotherapy: resolved, typically has diarrhea for several days after chemo likely leads to dehydration could consider holding Bumex while he has diarrhea Confusion, likely toxic encephalopathy likely from scopolamine patch that was started on admission d/c patch on 05/28, orientation improved today, likely confirming that it was toxic Acute on chronic anemia: could be due to bone marrow suppression with chemotherapy Hb down to 7.8 on 05/28 transfused one unit, Hb up to 8.7 Adrenal suppression? AM cortisol 6, within normal Chronic kidney disease stage III patient's creatinine is actually better than it has been in the past chronic diastolic heart failure Cr stable at 2.0 continue to hold Bumex Patient has history of alcohol abuse none most recently Thiamine and other multiple vitamins Disposition: needs rehab, [facility] will not accept insurance, accepted to alternative SNF but awaiting insurance authorization
[2017-05-29 23:18] VITALS: BP 129/70; PULSE 69; TEMP 36.9; O2SAT 92
[2017-05-30] VITALS: O2SAT 90
[2017-05-30 05:56] LABS: HEMATOCRIT 26.3 % (42-52); HEMOGLOBIN 8.6 g/dL (14.0-18.0); MEAN CORPUSCULAR HEMOGLOBIN 31.7 pg (25-34); MEAN CORPUSCULAR HGB CONC 32.7 g/dl (32-36); MEAN PLATELET VOLUME 10.9 fL (7.4-10.4); PLATELET COUNT 172 K/uL (130-400); RED CELL DISTRIBUTION WIDTH CV 16.7 % (11.5-14.5); RED CELL DISTRIBUTION WIDTH SD 59.5 fL (36.4-46.3); WHITE BLOOD COUNT 5.36 K/uL (4.8-10.8)
[2017-05-30 06:14] LABS: CALCIUM 7.3 mg/dl (8.5-10.1); CREATININE 1.95 mg/dl (0.60-1.40); POTASSIUM 3.5 mmol/L (3.5-5.1)
[2017-05-30] MEDS: LEVOTHYROXINE 100 MCG TAB PO SCH (06:28)
[2017-05-30 07:45] VITALS: BP 113/73; PULSE 64; TEMP 36.8; O2SAT 94
[2017-05-30] MEDS: CHOLECALCIFEROL 1000 INTER.UNIT TAB PO SCH (08:03)
[2017-05-30] MEDS: THIAMINE HCL 100 MG TAB PO SCH (08:03)
[2017-05-30] MEDS: PANTOprazole SOD 40 MG TAB PO SCH (08:03)
[2017-05-30] MEDS: LORATADINE 10 MG TAB PO SCH (08:03)
[2017-05-30] MEDS: CYANOCOBALAMIN 500 MCG TAB (VIT B-12) PO SCH (08:04)
[2017-05-30] MEDS: MIDODRINE 2.5 MG TAB PO SCH ×3 (08:04→17:05)
[2017-05-30] MEDS: HEPARIN SOD 5000 UNIT/0.5 ML CARP SQ SCH ×2 (08:08→20:38)
--- NOTE | 2017-05-30 15:28 | Progress Note ---
Subjective Date of Service: May 30, 2017. Subjective Pt evaluation today including: conversation w/ patient, physical exam, lab review, review of inpatient medication list Pain: no pain PO Intake: adequate Voiding: no voiding problems patient frustrated with being in the hospital, asking if he can go home discussed that he is too weak, unsteady on his feet, setting up rehab reviewed labs, Cr is 1.95, Hb is 8.6 Problem List Medical Problems: (1) Acute kidney failure Status: Acute (2) Alcoholism Status: Acute (3) Anasarca Status: Acute (4) Anemia Status: Acute (5) Bilateral pleural effusion Status: Acute (6) Bilateral pleural effusion Status: Acute (7) Contusion, flank Status: Acute (8) Dehydration Status: Acute (9) Dizziness Status: Acute (10) Elevated troponin Status: Acute (11) Fluid overload Status: Acute (12) Forehead contusion Status: Acute (13) Generalized weakness Status: Acute (14) Hypoalbuminemia Status: Acute (15) Hyponatremia Status: Acute (16) Left leg cellulitis Status: Acute (17) Malnutrition Status: Acute (18) Pedal edema Status: Acute (19) Rib fractures Status: Acute (20) UTI (urinary tract infection) Status: Acute Review of Systems Constitutional: + weakness, + fatigue Neurologic: + weakness, + balance problems All Other Systems: Reviewed and Negative Medications Current Inpatient Medications Medications (Trade) Dose Ordered Sig/Sylvester Route Start Time Stop Time Status Last Admin Dose Admin Cyanocobalamin (Vitamin B-12 Tab) 500 mcg DAILY PO 05/26/17 09:00 06/25/17 08:59 05/30/17 08:04 500 MCG Folic Acid (Folvite Tab) 1 mg DAILY PO 05/26/17 09:00 06/25/17 08:59 05/30/17 08:03 1 MG Levothyroxine Sodium (Synthroid Tab) 100 mcg DAILYBB PO 05/26/17 06:00 06/25/17 05:59 05/30/17 06:28 100 MCG Loratadine (Claritin Tab) 10 mg QAM PO 05/26/17 09:00 06/25/17 08:59 05/30/17 08:03 10 MG Lorazepam (Ativan Tab) 1 mg Q6H PRN PO 05/25/17 20:15 06/24/17 20:14 Thiamine HCl (Vitamin B-1 Tab) 100 mg DAILY PO 05/26/17 09:00 06/25/17 08:59 05/30/17 08:03 100 MG Valacyclovir HCl (Valtrex Tab) 500 mg DAILY PO 05/26/17 09:00 06/05/17 08:59 05/30/17 08:03 500 MG Miscellaneous Information (Order Awaiting Action) 1 ea QS N/A 05/26/17 00:00 06/25/17 00:00 Cholecalciferol (Vitamin D Tab) 2,000 inter.unit DAILY PO 05/26/17 09:00 06/25/17 08:59 05/30/17 08:03 2,000 INTER.UNIT Miscellaneous Information (Order Awaiting Action) 1 ea QS N/A 05/26/17 00:00 06/25/17 00:00 Pantoprazole Sodium (Protonix Tab) 40 mg DAILY PO 05/26/17 09:00 06/25/17 08:59 05/30/17 08:03 40 MG Heparin Sodium (Porcine) (Heparin Sq 5000 Unit/0.5ml) 5,000 unit Q12 SQ 05/25/17 21:00 06/24/17 20:59 05/30/17 08:08 5,000 UNIT Acetaminophen (Tylenol Tab) 650 mg Q4H PRN PO 05/25/17 20:15 06/24/17 20:14 Al Hydrox/Mg Hydrox/Simethicone (Maalox Max Susp) 15 ml Q4H PRN PO 05/25/17 20:15 06/24/17 20:14 Magnesium Hydroxide (Milk Of Magnesia Susp) 30 ml Q12H PRN PO 05/25/17 20:15 06/24/17 20:14 Ondansetron HCl (Zofran Inj) 4 mg Q6H PRN IV 05/25/17 20:15 06/24/17 20:14 Nitroglycerin (Nitrostat Tab) 0.4 mg UD PRN SL 05/25/17 20:15 06/24/17 20:14 Polyethylene (Miralax Powder Packet) 17 gm DAILY PRN PO 05/25/17 20:15 06/24/17 20:14 Meclizine HCl (Antivert Tab) 25 mg Q8 PRN PO 05/25/17 20:15 06/24/17 20:14 05/28/17 07:46 25 MG Miscellaneous (Iv Fluids Completed) 1 ea PRN PRN N/A 05/25/17 21:45 05/25/18 21:44 Midodrine (Proamatine Tab) 10 mg TID@08,12,17 PO 05/28/17 12:00 06/25/17 11:59 05/30/17 12:23 10 MG Objective Vital Signs Date Time Temp Pulse Resp B/P (MAP) Pulse Ox O2 Delivery O2 Flow Rate FiO2 05/30/17 08:00 Room Air 05/30/17 07:45 36.8 64 18 113/73 (86) 94 05/30/17 00:00 90 Room Air 05/29/17 23:18 36.9 69 18 129/70 (89) 92 Room Air 05/29/17 20:00 90 Room Air 05/29/17 16:00 Room Air Physical Exam General Appearance: WD/WN, no apparent distress Eyes: normal inspection, EOMI, sclerae normal Neck: supple, no adenopathy, no JVD, trachea midline Respiratory/Chest: chest non-tender, lungs clear, normal breath sounds, no respiratory distress, no accessory muscle use Cardiovascular: regular rate, rhythm, no edema, no gallop, no JVD, no murmur Abdomen: normal bowel sounds, non tender, soft, no organomegaly Extremities: normal range of motion, non-tender, normal inspection, no pedal edema, no calf tenderness, pelvis stable Neurologic/Psychiatric: language interpreter II-XII nml as tested, alert, normal mood/affect, oriented x 3, + abnormal gait, + motor weakness Skin: normal color, warm/dry, no rash Laboratory Results Last 24 Hours Test 05/30/17 05:49 White Blood Count 5.36 K/uL Red Blood Count 2.71 M/uL Hemoglobin 8.6 g/dL Hematocrit 26.3 % Mean Corpuscular Volume 97.0 fL Mean Corpuscular Hemoglobin 31.7 pg Mean Corpuscular Hemoglobin Concent 32.7 g/dl RDW Standard Deviation 59.5 fL RDW Coefficient of Variation 16.7 % Platelet Count 172 K/uL Mean Platelet Volume 10.9 fL Sodium Level 141 mmol/L Potassium Level 3.5 mmol/L Chloride Level 113 mmol/L Carbon Dioxide Level 22 mmol/L Anion Gap 6.0 mmol/L Blood Urea Nitrogen 20 mg/dl Creatinine 1.95 mg/dl Est Creatinine Clear Calc Drug Dose 33.3 ml/min Estimated GFR () 37.6 Estimated GFR (Non- 32.5 BUN/Creatinine Ratio 10.3 Random Glucose 80 mg/dl Calcium Level 7.3 mg/dl Magnesium Level 2.4 mg/dl Assessment and Plan 77-year-old male presents with some chest pain and difficult to describe dizziness or lightheadedness - Presyncope symptoms of light headed, dizzy had a significant drop in systolic pressure with standing so symptoms likely orthostatic hypotension likely worsened by dehydration from diarrhea increased Midodrine to 10mg TID on 05/28 symptoms are improved, no drops in blood pressure PT/OT - recommend rehab will ask cardiology for their input on brief run of afib, no clear symptoms do not feel symptoms are cardiac, agree with Midodrine mild on echo so doubt it is contributing minimal troponin elevation, no EKG changes, doubt IA Diarrhea from chemotherapy: resolved, typically has diarrhea for several days after chemo likely leads to dehydration could consider holding Bumex while he has diarrhea Confusion, likely toxic encephalopathy likely from scopolamine patch that was started on admission d/c patch on 05/28, orientation improved for two days, likely confirming that it was toxic Acute on chronic anemia: could be due to bone marrow suppression with chemotherapy Hb down to 7.8 on 05/28 transfused one unit, Hb up to 8.7 yesterday and 8.6 today, will follow Adrenal suppression? AM cortisol 6, within normal Chronic kidney disease stage III patient's creatinine is actually better than it has been in the past chronic diastolic heart failure Cr improved slightly at 1.95, really it is at baseline for him continue to hold Bumex Patient has history of alcohol abuse none most recently Thiamine and other multiple vitamins Disposition: needs rehab, [facility] will not accept insurance, accepted to alternative SNF but awaiting insurance authorization can go to [facility] once insurance authorizes
[2017-05-30 15:36] VITALS: BP 108/63; PULSE 65; TEMP 36.6; O2SAT 96
[2017-05-30 16:00] VITALS: O2SAT 96
[2017-05-30 17:06] VITALS: BP 109/67
[2017-05-30 23:14] VITALS: BP 147/73; PULSE 67; TEMP 36.7; O2SAT 91
[2017-05-31] VITALS: O2SAT 90
[2017-05-31] MEDS: LEVOTHYROXINE 100 MCG TAB PO SCH (05:05)
[2017-05-31 07:28] VITALS: BP 104/65; PULSE 64; TEMP 36.7; O2SAT 94
[2017-05-31] MEDS: THIAMINE HCL 100 MG TAB PO SCH (07:30)
[2017-05-31] MEDS: LORATADINE 10 MG TAB PO SCH (07:30)
[2017-05-31] MEDS: PANTOprazole SOD 40 MG TAB PO SCH (07:30)
[2017-05-31] MEDS: CYANOCOBALAMIN 500 MCG TAB (VIT B-12) PO SCH (07:31)
[2017-05-31] MEDS: CHOLECALCIFEROL 1000 INTER.UNIT TAB PO SCH (07:31)
[2017-05-31] MEDS: MIDODRINE 2.5 MG TAB PO SCH ×3 (07:32→16:33)
[2017-05-31] MEDS: HEPARIN SOD 5000 UNIT/0.5 ML CARP SQ SCH ×2 (07:38→19:59)
[2017-05-31 08:00] VITALS: O2SAT 90
[2017-05-31 08:22] LABS: CALCIUM 7.1 mg/dl (8.5-10.1); CREATININE 1.9 mg/dl (0.60-1.40); POTASSIUM 3.4 mmol/L (3.5-5.1)
--- NOTE | 2017-05-31 09:40 | Progress Note ---
Subjective Date of Service: May 31, 2017. Subjective Pt evaluation today including: conversation w/ patient, physical exam, lab review, review of inpatient medication list Pain: no pain PO Intake: adequate Voiding: no voiding problems patient doing well, oriented today, answering questions clearly and logically reviewed labs, Cr stable at 1.9, K is 3.4, no H/H check today discussed plans for rehab at [facility] with patient, would happen tomorrow if approved with insurance no new issues eating well, no diarrhea Problem List Medical Problems: (1) Acute kidney failure Status: Acute (2) Alcoholism Status: Acute (3) Anasarca Status: Acute (4) Anemia Status: Acute (5) Bilateral pleural effusion Status: Acute (6) Bilateral pleural effusion Status: Acute (7) Contusion, flank Status: Acute (8) Dehydration Status: Acute (9) Dizziness Status: Acute (10) Elevated troponin Status: Acute (11) Fluid overload Status: Acute (12) Forehead contusion Status: Acute (13) Generalized weakness Status: Acute (14) Hypoalbuminemia Status: Acute (15) Hyponatremia Status: Acute (16) Left leg cellulitis Status: Acute (17) Malnutrition Status: Acute (18) Pedal edema Status: Acute (19) Rib fractures Status: Acute (20) UTI (urinary tract infection) Status: Acute Review of Systems Constitutional: + weakness Neurologic: + weakness, + balance problems All Other Systems: Reviewed and Negative Medications Current Inpatient Medications Medications (Trade) Dose Ordered Sig/Sylvester Route Start Time Stop Time Status Last Admin Dose Admin Cyanocobalamin (Vitamin B-12 Tab) 500 mcg DAILY PO 05/26/17 09:00 06/25/17 08:59 05/31/17 07:31 500 MCG Folic Acid (Folvite Tab) 1 mg DAILY PO 05/26/17 09:00 06/25/17 08:59 05/31/17 07:31 1 MG Levothyroxine Sodium (Synthroid Tab) 100 mcg DAILYBB PO 05/26/17 06:00 06/25/17 05:59 05/31/17 05:05 100 MCG Loratadine (Claritin Tab) 10 mg QAM PO 05/26/17 09:00 06/25/17 08:59 05/31/17 07:30 10 MG Lorazepam (Ativan Tab) 1 mg Q6H PRN PO 05/25/17 20:15 06/24/17 20:14 Thiamine HCl (Vitamin B-1 Tab) 100 mg DAILY PO 05/26/17 09:00 06/25/17 08:59 05/31/17 07:30 100 MG Valacyclovir HCl (Valtrex Tab) 500 mg DAILY PO 05/26/17 09:00 06/05/17 08:59 05/31/17 07:30 500 MG Miscellaneous Information (Order Awaiting Action) 1 ea QS N/A 05/26/17 00:00 06/25/17 00:00 Cholecalciferol (Vitamin D Tab) 2,000 inter.unit DAILY PO 05/26/17 09:00 06/25/17 08:59 05/31/17 07:31 2,000 INTER.UNIT Miscellaneous Information (Order Awaiting Action) 1 ea QS N/A 05/26/17 00:00 06/25/17 00:00 Pantoprazole Sodium (Protonix Tab) 40 mg DAILY PO 05/26/17 09:00 06/25/17 08:59 05/31/17 07:30 40 MG Heparin Sodium (Porcine) (Heparin Sq 5000 Unit/0.5ml) 5,000 unit Q12 SQ 05/25/17 21:00 06/24/17 20:59 05/31/17 07:38 5,000 UNIT Acetaminophen (Tylenol Tab) 650 mg Q4H PRN PO 05/25/17 20:15 06/24/17 20:14 Al Hydrox/Mg Hydrox/Simethicone (Maalox Max Susp) 15 ml Q4H PRN PO 05/25/17 20:15 06/24/17 20:14 Magnesium Hydroxide (Milk Of Magnesia Susp) 30 ml Q12H PRN PO 05/25/17 20:15 06/24/17 20:14 Ondansetron HCl (Zofran Inj) 4 mg Q6H PRN IV 05/25/17 20:15 06/24/17 20:14 Nitroglycerin (Nitrostat Tab) 0.4 mg UD PRN SL 05/25/17 20:15 06/24/17 20:14 Polyethylene (Miralax Powder Packet) 17 gm DAILY PRN PO 05/25/17 20:15 06/24/17 20:14 Meclizine HCl (Antivert Tab) 25 mg Q8 PRN PO 05/25/17 20:15 06/24/17 20:14 05/28/17 07:46 25 MG Miscellaneous (Iv Fluids Completed) 1 ea PRN PRN N/A 05/25/17 21:45 05/25/18 21:44 Midodrine (Proamatine Tab) 10 mg TID@08,12,17 PO 05/28/17 12:00 06/25/17 11:59 05/31/17 07:32 10 MG Objective Vital Signs Date Time Temp Pulse Resp B/P (MAP) Pulse Ox O2 Delivery O2 Flow Rate FiO2 05/31/17 07:28 36.7 64 16 104/65 (78) 94 05/31/17 00:00 90 Room Air 05/30/17 23:14 36.7 67 19 147/73 (97) 91 Room Air 05/30/17 17:06 109/67 (81) 05/30/17 16:00 96 Room Air 05/30/17 15:36 36.6 65 22 108/63 (78) 96 Room Air Physical Exam General Appearance: WD/WN, no apparent distress Eyes: normal inspection, EOMI, sclerae normal ENT: normal ENT inspection, hearing grossly normal, pharynx normal Neck: supple, no adenopathy, no JVD, trachea midline Respiratory/Chest: chest non-tender, lungs clear, normal breath sounds, no respiratory distress, no accessory muscle use Cardiovascular: regular rate, rhythm, no edema, no gallop, no JVD, no murmur Abdomen: normal bowel sounds, non tender, soft, no organomegaly Extremities: normal range of motion, non-tender, normal inspection, no pedal edema, no calf tenderness, pelvis stable Neurologic/Psychiatric: glass beveler II-XII nml as tested, alert, normal mood/affect, oriented x 3, + abnormal gait, + motor weakness Skin: normal color, warm/dry, no rash Laboratory Results Last 24 Hours Test 05/31/17 07:22 Sodium Level 142 mmol/L Potassium Level 3.4 mmol/L Chloride Level 113 mmol/L Carbon Dioxide Level 22 mmol/L Anion Gap 7.0 mmol/L Blood Urea Nitrogen 20 mg/dl Creatinine 1.90 mg/dl Est Creatinine Clear Calc Drug Dose 34.2 ml/min Estimated GFR () 38.8 Estimated GFR (Non- 33.5 BUN/Creatinine Ratio 10.6 Random Glucose 76 mg/dl Calcium Level 7.1 mg/dl Assessment and Plan 77-year-old male presents with some chest pain and difficult to describe dizziness or lightheadedness - Presyncope symptoms of light headed, dizzy had a significant drop in systolic pressure with standing so symptoms likely orthostatic hypotension likely worsened by dehydration from diarrhea increased Midodrine to 10mg TID on 05/28 symptoms are improved, no drops in blood pressure PT/OT - recommend rehab asked cardiology for their input on brief run of afib, no clear symptoms do not feel symptoms are cardiac, agree with Midodrine mild on echo so doubt it is contributing minimal troponin elevation, no EKG changes, doubt IA Diarrhea from chemotherapy: resolved, typically has diarrhea for several days after chemo likely leads to dehydration could consider holding Bumex while he has diarrhea Confusion, likely toxic encephalopathy likely from scopolamine patch that was started on admission d/c patch on 05/28, orientation improved, answering questions clearly and logically past two days Acute on chronic anemia: could be due to bone marrow suppression with chemotherapy Hb down to 7.8 on 05/28 transfused one unit, Hb up to 8.6 on 05/30, will repeat tomorrow Adrenal suppression? AM cortisol 6, within normal Chronic kidney disease stage III patient's creatinine is actually better than it has been in the past chronic diastolic heart failure Cr stable at 1.9, really it is at baseline for him continue to hold Bumex since he is making urine, no edema may not really require Bumex at all given plans for future chemo and subsequent diarrhea Patient has history of alcohol abuse none most recently Thiamine and other multiple vitamins Disposition: needs rehab, [facility] not accept insurance, accepted to alternative SNF but awaiting insurance authorization can go to [facility] once insurance authorizes, hopefully on Thursday 06/01
[2017-05-31] MEDS ORDERED: POTASSIUM CHLORIDE 20 MEQ TABCR PO ONE (10:30)
[2017-05-31 18:01] VITALS: BP 131/73; PULSE 64; TEMP 36.8; O2SAT 97
[2017-05-31 23:43] VITALS: BP 133/72; PULSE 70; TEMP 36.7; O2SAT 96
[2017-06-01] VITALS (7 sets, daily range): BP systolic 93–114; BP diastolic 54–80; PULSE 69–87; TEMP 36.3–36.6; O2SAT 91–94
[2017-06-01] MEDS: LEVOTHYROXINE 100 MCG TAB PO SCH (06:17)
[2017-06-01 07:01] LABS: HEMATOCRIT 29.2 % (42-52); HEMOGLOBIN 9.5 g/dL (14.0-18.0)
[2017-06-01 07:32] LABS: CALCIUM 7.3 mg/dl (8.5-10.1); CREATININE 1.95 mg/dl (0.60-1.40); POTASSIUM 3.4 mmol/L (3.5-5.1)
[2017-06-01] MEDS: CHOLECALCIFEROL 1000 INTER.UNIT TAB PO SCH (07:55)
[2017-06-01] MEDS: MIDODRINE 2.5 MG TAB PO SCH ×3 (07:55→17:30)
[2017-06-01] MEDS: PANTOprazole SOD 40 MG TAB PO SCH (07:55)
[2017-06-01] MEDS: THIAMINE HCL 100 MG TAB PO SCH (07:55)
[2017-06-01] MEDS: LORATADINE 10 MG TAB PO SCH (07:55)
[2017-06-01] MEDS: CYANOCOBALAMIN 500 MCG TAB (VIT B-12) PO SCH (07:56)
[2017-06-01] MEDS: HEPARIN SOD 5000 UNIT/0.5 ML CARP SQ SCH ×2 (08:00→20:25)
[2017-06-01] MEDS ORDERED: POTASSIUM CHLORIDE 10 MEQ TABCR PO STA (08:49)
--- NOTE | 2017-06-01 14:49 | Progress Note ---
Subjective Date of Service: Jun 01, 2017. Subjective Pt evaluation today including: conversation w/ patient, physical exam, chart review, lab review, review of studies, conversation w/ diet consultant, review of inpatient medication list Generally doing okay, no complaints, denies chest pain, no more dizziness, eating voiding okay Problem List Medical Problems: (1) Acute kidney failure Status: Acute (2) Alcoholism Status: Acute (3) Anasarca Status: Acute (4) Anemia Status: Acute (5) Bilateral pleural effusion Status: Acute (6) Bilateral pleural effusion Status: Acute (7) Contusion, flank Status: Acute (8) Dehydration Status: Acute (9) Dizziness Status: Acute (10) Elevated troponin Status: Acute (11) Fluid overload Status: Acute (12) Forehead contusion Status: Acute (13) Generalized weakness Status: Acute (14) Hypoalbuminemia Status: Acute (15) Hyponatremia Status: Acute (16) Left leg cellulitis Status: Acute (17) Malnutrition Status: Acute (18) Pedal edema Status: Acute (19) Rib fractures Status: Acute (20) UTI (urinary tract infection) Status: Acute Review of Systems Constitutional: + weakness, + fatigue, No fever, No chills, No sweats, No weight loss, No problem reported Eyes: No worsening of vision, No eye pain, No redness, No discharge, No diplopia ENT: No hearing loss, No unusual epistaxis, No nasal symptoms, No sore throat, No tinnitus, No dental problems, No trouble swallowing Respiratory: No cough, No sputum, No wheezing, No shortness of breath, No dyspnea on exertion, No dyspnea at rest, No hemoptysis Cardiac: No chest pain, No orthopnea, No PND, No edema, No claudication, No palpitations Abdomen: No pain, No nausea, No vomiting, No diarrhea, No constipation Musculoskeletal: No joint pain, No muscle pain, No swelling, No calf pain Male : No dysuria, No urinary frequency, No incontinence, No nocturia more than once/night, No slowing stream, No hematuria Neurologic: + balance problems (Possible), No memory loss, No paralysis, No weakness, No numbness/tingling, No vertigo Psychiatric: No depression symptoms, No anhedonism, No anxiety, No insomnia, No substance abuse Heme: No abnormal bleeding/bruising, No clotting problems, No swollen lymph nodes, No night sweats Endo: No fatigue, No excessive thirst, No excessive urination Skin: No rash, No itch, No new/changing skin lesions, No color change, No bleeding Objective Vital Signs Date Time Temp Pulse Resp B/P (MAP) Pulse Ox O2 Delivery O2 Flow Rate FiO2 06/01/17 14:30 36.3 84 20 114/71 (85) 91 06/01/17 10:43 87 93/54 (67) 06/01/17 10:43 74 114/71 (85) 06/01/17 10:42 77 109/66 (80) 06/01/17 09:30 94 Room Air 06/01/17 08:00 94 Room Air 06/01/17 07:58 36.6 69 18 114/80 (91) 94 Room Air 06/01/17 00:00 Room Air 05/31/17 23:43 36.7 70 19 133/72 (92) 96 Room Air 05/31/17 18:01 36.8 64 16 131/73 (92) 97 05/31/17 16:00 Room Air Physical Exam General Appearance: WD/WN, no apparent distress Eyes: normal inspection, PERRL, EOMI, sclerae normal ENT: normal ENT inspection, hearing grossly normal, pharynx normal Neck: supple, no adenopathy, thyroid normal, no JVD, no carotid bruits, trachea midline Respiratory/Chest: chest non-tender, normal breath sounds, no respiratory distress, no accessory muscle use, + decreased breath sounds Cardiovascular: regular rate, rhythm, no edema, no gallop, no JVD, no murmur Abdomen: normal bowel sounds, non tender, soft, no organomegaly, no pulsatile mass Extremities: normal range of motion, non-tender, normal inspection, no pedal edema, no calf tenderness, normal capillary refill, pelvis stable 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, no motor/sensory deficits, alert, normal mood/affect, oriented x 3 Skin: normal color, warm/dry, no rash Lymphatic: no adenopathy Laboratory Results Last 24 Hours Test 06/01/17 06:32 Hemoglobin 9.5 g/dL Hematocrit 29.2 % Sodium Level 143 mmol/L Potassium Level 3.4 mmol/L Chloride Level 113 mmol/L Carbon Dioxide Level 20 mmol/L Anion Gap 10.0 mmol/L Blood Urea Nitrogen 19 mg/dl Creatinine 1.95 mg/dl Est Creatinine Clear Calc Drug Dose 33.3 ml/min Estimated GFR () 37.6 Estimated GFR (Non- 32.5 BUN/Creatinine Ratio 10.0 Random Glucose 77 mg/dl Calcium Level 7.3 mg/dl Assessment and Plan 77-year-old male admitted on May 25 because of some chest pain and difficult to describe, dizziness or lightheadedness Presyncope symptoms of light headed, dizzy, totally resolved, however repeated orthostatic blood pressure still positive today patient denied symptoms such as dizziness Upon his admission, had a significant drop in systolic pressure with standing so symptoms likely orthostatic hypotension likely worsened by dehydration from diarrhea Past increased Midodrine to 10mg TID on 05/28/2017, PT/OT - recommend rehab There was brief run of afib, no clear symptoms, mild on echo so doubt it is contributing, minimal troponin elevation, no EKG changes, doubt [place] Diarrhea from chemotherapy upon admission: resolved, Confusion, likely toxic encephalopathy upon admission, resolved Acute on chronic anemia: could be due to bone marrow suppression with chemotherapy, Hb down to 7.8 on 05/28, transfused one unit, Hb up to 8.6 on 05/30 , will repeat tomorrow Adrenal suppression? AM cortisol 6, within normal Hypokalemia, replaced Chronic kidney disease stage III has been stable for 3-4 days Patient has history of alcohol abuse none most recently, continue thiamine and other multiple vitamins needs rehab, or fdc DVT prophylaxis is heparin, Continued [facility] stay due to: home environment unsafe for pt Discharge planning: rehab hospital, custodial facility
[2017-06-02 00:12] VITALS: BP 133/79; PULSE 83; TEMP 36.7; O2SAT 96
[2017-06-02] MEDS: LEVOTHYROXINE 100 MCG TAB PO SCH (05:45)
[2017-06-02 07:41] VITALS: BP 122/70; PULSE 76; TEMP 36.8; O2SAT 93
[2017-06-02] MEDS: THIAMINE HCL 100 MG TAB PO SCH (08:05)
[2017-06-02] MEDS: CHOLECALCIFEROL 1000 INTER.UNIT TAB PO SCH (08:05)
[2017-06-02] MEDS: MIDODRINE 2.5 MG TAB PO SCH ×2 (08:05→12:01)
[2017-06-02] MEDS: LORATADINE 10 MG TAB PO SCH (08:05)
[2017-06-02] MEDS: PANTOprazole SOD 40 MG TAB PO SCH (08:05)
[2017-06-02] MEDS: CYANOCOBALAMIN 500 MCG TAB (VIT B-12) PO SCH (08:06)
[2017-06-02] MEDS: HEPARIN SOD 5000 UNIT/0.5 ML CARP SQ SCH (08:07)
[2017-06-02 08:17] LABS: CALCIUM 7.5 mg/dl (8.5-10.1); CREATININE 1.81 mg/dl (0.60-1.40); POTASSIUM 3.4 mmol/L (3.5-5.1)
[2017-06-02 11:13] VITALS: BP 122/70; PULSE 76; TEMP 36.8; O2SAT 93
[2017-06-02] MEDS ORDERED: PRMT25 PO (11:43)
--- NOTE | 2017-06-02 11:43 | Discharge Instructions ---
Discharge Instructions Date of Service Jun 02, 2017. Admission Reason for Admission: Dizziness Discharge Discharge Diagnosis / Problem: Presyncope, orthostatic hypotension Discharge Goals Goal(s): Decrease discomfort, Improve function, Increase independence, Improve disease control, Improve nutritional status, Learn about illness, Diagnostic testing, Therapeutic intervention, Prevent Disease Progression, Specific goals Activity Recommendations Activity Level: Up Ad Betty (fall precaution) Therapies: Physical Therapy, Occupational Therapy . Additional Information Patient informed of condition: Yes Advance Directives: No DNR: No Level of Care: Acute Rehab Communicable Disease: No Prognosis: Stable [place] Catheter: No Instructions / Follow-Up Instructions / Follow-Up you was having Presyncope symptoms likely from orthostatic hypotension orthostatic hypotension likely secondary to dehydration from diarrhea continue Midodrine to 10mg TID you was HAVING brief run of afib, no clear symptoms, you have Acute on chronic anemia: you need to follow up with PCP about this you have Chronic kidney disease stage III has been stable you need to have labs in 5 days of BMP to follow up renal function and Potassium level - you need to follow up with your primary care physician in 1 week, - take medication as instructed, never overdose or any misuse, or take with alcohol, because misuse of medicine may cause organ damage or , call your primary care physician if have questions of medicaitons. - call your primary care physician OR go to local emergency room if has any fever/chill, chest pain, shortness of breathing, nausea/vomiting/abdominal pain , facial droop/slurry speech/local weakness, or if has any questions. - fall precaution - diet as instructed - you need to follow up with your subspecialist - you should understand that it is important to follow up the above instruction , and "not following the above instruction" may cause delayed or missed care of your medical conditions which may cause permanent organ damage and even . Current Hospital Diet Patient's current hospital diet: Regular Diet Discharge Diet Recommended Diet: Regular Diet Pending Studies Studies pending at discharge: no Medical Emergencies . Who to Call and When: Medical Emergencies: If at any time you feel your situation is an emergency, please call 911 immediately. . Non-Emergent Contact Non-Emergency issues call your: Primary Care Provider . . "Provider Documentation" section prepared by Jett Casarez. . Core Measure Problem Core Measures: None
[2017-06-02] MEDS ORDERED: POTASSIUM CHLORIDE 10 MEQ TABCR PO STA (12:12)
--- NOTE | 2017-06-02 13:49 | Discharge Summary ---
Discharge Summary Date of Service Jun 02, 2017. Discharge Summary Admission Date: May 30, 2017 at 15:23 Discharge Date: Jun 02, 2017 Discharge Disposition: Rehab Principal Diagnosis: Presyncope symptoms likely from orthostatic hypotension Problems/Secondary Diagnoses: orthostatic hypotension likely secondary to dehydration from diarrhea Procedures: No Consultations: No Medication Reconciliation New Medications: Midodrine (Midodrine HCl) 2.5 Mg Tab 10 MG PO TID@08,12,17 for 14 Days, TAB Continued Medications: Acetaminophen Tab (Tylenol) 325 Mg Tab 325 MG PO QID PRN for Pain, TAB Bortezomib (Velcade) 1 Mg/Ml Inj 1 MG SQ WK EVERY THURSDAY Cholecalciferol (Vitamin D3) 2,000 Unit Cap 2000 UNITS PO DAILY Cyanocobalamin (Vitamin B12 500MCG) 500 Mcg Tab 500 MCG PO DAILY, TAB Cyclophosphamide (Cyclophosphamide) 50 Mg Cap 500 MG PO WK TAKE TEN 50MG TABLETS EVERY THURSDAY. TAKE WITH DECADRON. Dexamethasone (Decadron) 4 Mg Tab 40 MG PO WK, TAB TAKE 10 FOUR MG TABLETS EVERY THURSDAY WITH CYCLOPHOSPHAMIDE. TAKE WITH FOOD. Diphenoxylate/Atropine (Lomotil) Tab 1 TAB PO QID PRN for Diarrhea Folic Acid (Folvite) 1 Mg Tab 1 MG PO DAILY, TAB Levothyroxine Sodium (Levothyroxine Sodium) 100 Mcg Tab 100 MCG PO DAILY Loratadine (Claritin) 10 Mg Tab 10 MG PO QAM, TAB Lorazepam (Ativan) 1 Mg Tab 1 MG PO Q6H PRN for Anxiety, TAB Omeprazole (Prilosec) 20 Mg Capcr 20 MG PO DAILY, CAP Ondansetron Hcl (Zofran) 8 Mg Tab 8 MG PO TID PRN for Nausea, TAB Thiamine Hcl (Vitamin B-1) 100 Mg Tab 100 MG PO DAILY, TAB Valacyclovir (Valtrex) 500 Mg Tab 500 MG PO DAILY Discontinued Medications: Bumetanide (Bumex) 1 Mg Tab 1 TAB PO BID, TAB Potassium Chloride (Potassium Chloride ER) 20 Meq Tabcr 20 MEQ PO DAILY/UD TAKE THIS MED DAILY WHILE ON BUMEX. Discharge Exam Doing well, eating drinking good, has been up and walk, no complaint, denied dizziness, follow-up commands, patient is smiling, Review of Systems: Constitutional: No fever, No chills, No sweats, No weight loss, No weakness , No fatigue, No problem reported Eyes: No worsening of vision, No eye pain, No redness, No discharge, No diplopia, No problem reported ENT: No hearing loss, No unusual epistaxis, No nasal symptoms, No sore throat, No tinnitus, No dental problems, No trouble swallowing, No problem reported Respiratory: No cough, No sputum, No wheezing, No shortness of breath, No dyspnea on exertion, No dyspnea at rest, No hemoptysis, No problem reported Cardiovascular: No chest pain, No orthopnea, No PND, No edema, No claudication, No palpitations, No problem reported Abdomen: No pain, No nausea, No vomiting, No diarrhea, No constipation, No GI bleeding, No problem reported Musculoskeletal: No joint pain, No muscle pain, No swelling, No calf pain, No problem reported Genitourinary - Male: No hematuria, No dysuria, No urinary frequency, No urinary urgency, No urinary hesitancy, No urinary retention, No urinary incontinence, No penile discharge, No lesions, No impotence, No problem reported Neurologic: No memory loss, No paralysis, No weakness, No numbness/tingling , No vertigo, No balance problems, No problem reported Endocrine: No fatigue, No excessive thirst, No excessive urination, No problem reported Physical Exam: General Appearance: no apparent distress, + thin Eyes: normal inspection, PERRL ENT: normal ENT inspection, hearing grossly normal Neck: supple, no adenopathy, thyroid normal Respiratory/Chest: chest non-tender, normal breath sounds, no respiratory distress, no accessory muscle use, + decreased breath sounds Cardiovascular: regular rate, rhythm, no edema, no gallop Abdomen / GI: normal bowel sounds, non tender, soft, no organomegaly Extremities: normal inspection, no calf tenderness, normal capillary refill 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, no motor/sensory deficits , alert, normal mood/affect Skin: normal color, warm/dry Hospital Course 77-year-old male admitted on May 25 2017, because of some chest pain and difficult to describe, dizziness or lightheadedness Presyncope symptoms of light headed, dizzy, totally resolved, however repeated orthostatic blood pressure yesterday still positive orthostatic hypotension, patient denied symptoms such as dizziness Upon his admission, had a significant drop in systolic pressure with standing so symptoms likely orthostatic hypotension likely worsened by dehydration from diarrhea Has increased Midodrine to 10mg TID on 05/28/2017, will continue, PT/OT - recommend rehab There was brief run of afib, no clear symptoms, mild on echo so doubt it is contributing, minimal troponin elevation, no EKG changes, doubt [place] Diarrhea from chemotherapy upon admission: resolved, Confusion, likely toxic encephalopathy upon admission, resolved Acute on chronic anemia: could be due to bone marrow suppression with chemotherapy, Hb down to 7.8 on 05/28, transfused one unit, Hb up to 8.6 on 05/30 , hemoglobin today is 9.5, Hypokalemia, replaced Chronic kidney disease stage III has been stable for 3-4 days, Patient has history of alcohol abuse, none most recently, continue thiamine and other multiple vitamins Plan to rehab today DVT prophylaxis is heparin, Discharge instructions in below: you was having Presyncope symptoms likely from orthostatic hypotension orthostatic hypotension likely secondary to dehydration from diarrhea continue Midodrine to 10mg TID you was HAVING brief run of afib, no clear symptoms, you have Acute on chronic anemia: you need to follow up with PCP about this you have Chronic kidney disease stage III has been stable you need to have labs in 5 days of BMP to follow up renal function and Potassium level - you need to follow up with your primary care physician in 1 week, - take medication as instructed, never overdose or any misuse, or take with alcohol, because misuse of medicine may cause organ damage or , call your primary care physician if have questions of medicaitons. - call your primary care physician OR go to local emergency room if has any fever/chill, chest pain, shortness of breathing, nausea/vomiting/abdominal pain , facial droop/slurry speech/local weakness, or if has any questions. - fall precaution - diet as instructed - you need to follow up with your subspecialist - you should understand that it is important to follow up the above instruction , and "not following the above instruction" may cause delayed or missed care of your medical conditions which may cause permanent organ damage and even . Total Time Spent: Greater than 30 minutes This includes examination of the patient, discharge planning, medication reconciliation, and communication with other providers. Discharge Instructions Please refer to the electronic Patient Visit Report (Discharge Instructions) for additional information. Additional Copies To [facility] [place]; Steven Parry PA-C
== END 2017-06-02 13:25 | DRG 640 ==
LOC: C.EDB 17:29 → C.2T 20:17 → ENRESERV 20:24 → C.4E 05-27 15:30 → OBSVTOIN 05-30 15:23
PROVIDERS: ADMIT Internal Medicine; ATTEND Hospitalist
DX: E86.0 Dehydration (principal); G92 Toxic encephalopathy; T44.3X5A Adverse effect of other parasympatholytics [anticholinergics and antimuscarinics] and spasmolytics, initial encounter; I47.2 Ventricular tachycardia; E85.9 Amyloidosis, unspecified; I50.32 Chronic diastolic (congestive) heart failure; I95.1 Orthostatic hypotension; R19.7 Diarrhea, unspecified; T45.1X5A Adverse effect of antineoplastic and immunosuppressive drugs, initial encounter; R55 Syncope and collapse; I48.91 Unspecified atrial fibrillation; D64.81 Anemia due to antineoplastic chemotherapy; I35.0 Nonrheumatic aortic (valve) stenosis; E87.6 Hypokalemia; R78.89 Finding of other specified substances, not normally found in blood; E88.09 Other disorders of plasma-protein metabolism, not elsewhere classified; N18.3 Chronic kidney disease, stage 3 (moderate); E03.9 Hypothyroidism, unspecified; F10.21 Alcohol dependence, in remission; Z79.899 Other long term (current) drug therapy; Z79.52 Long term (current) use of systemic steroids; Z91.81 History of falling